=== PATIENT | female | born 1940 | race Caucasian/White ===

== ENCOUNTER 2019-09-18 06:55 | Outpatient (CLI) | payer MEDICARE, MEDICAID, SELFPAY ==
[2019-09-18 07:47] LABS: Hematocrit 34.5 % (37.0-47.0); Hemoglobin 10.4 g/dL (12.0-15.0); Mean Corpuscular HGB Conc 30.1 g/dl (32-36); Mean Corpuscular Hemoglobin 25.1 pg (26-34); Mean Corpuscular Volume 83.3 fl (80-100); Mean Platelet Volume 8.8 fl (7.4-10.4); Platelet Count Result 328 k/mm3 (150-375); Red Blood Count 4.14 M/mm3 (4.2-5.4); White Blood Count 10.7 K/mm3 (4.5-10.0)
[2019-09-18 08:00] LABS: Cholesterol 180 mg/dL (0-200); HDL Direct 36 mg/dL; Triglycerides 258 mg/dL (<150)
[2019-09-18 08:01] LABS: Anion Gap 13.5 mmol/L (7-16); Blood Urea Nitrogen 26 mg/dL (7-17); Calcium 8.9 mg/dL (8.4-10.2); Carbon Dioxide 23 mmol/L (22-30); Chloride 105 mmol/L (98-107); Estimated Glomerular Filt Rate 29; Glucose 106 mg/dL (65-105); Phosphorus 3.8 mg/dL (2.5-4.5); Potassium 4.5 mmol/L (3.4-5.0); Sodium 137 mmol/L (137-145)
[2019-09-18 08:11] LABS: LDL Cholesterol Direct 100 mg/dL
[2019-09-18 08:26] LABS: Creatinine Urine 30.4 mg/dL; Total Protein Urine Random 16 mg/dL
[2019-09-18 08:31] LABS: Parathyroid Intact 107.5 pg/mL (7.5-53.5)
[2019-09-18 08:43] LABS: Digoxin 0.8 ng/mL (0.8-2.0)
[2019-09-18 08:57] LABS: Free T4 Free Thyroxine 0.93 ng/mL (0.78-2.19)
[2019-09-18 08:58] LABS: Vitamin D 25 Hydroxy 54.3 ng/mL
[2019-09-18 09:09] LABS: Folic Acid 14.4 ng/mL (2.76->20); Vitamin B12 > 1000.0 pg/mL (239-931)
== END 2019-09-18 06:56 | disposition home or self-care (01) ==
PROVIDERS: Family Provider Internal Medicine Cardiovascular Disease; PCP Internal Medicine; Referring Provider Internal Medicine Nephrology; Visit Provider Internal Medicine
DX: E03.9 Hypothyroidism, unspecified (principal); E78.5 Hyperlipidemia, unspecified; R53.83 Other fatigue; I49.5 Sick sinus syndrome; N18.4 Chronic kidney disease, stage 4 (severe)
CPT/HCPCS: 36415; 80061; 80069; 80162; 82306; 82570; 82607; 82746; 83970; 84156; 84439; 84443; 85027

== ENCOUNTER 2020-05-20 07:25 | Outpatient (CLI) | payer MEDICARE, MEDICAID, SELFPAY ==
[2020-05-20 08:03] LABS: Basophils Absolute Auto 0.1 K/mm3 (0.0-0.1); Basophils Percent Auto 0.7 % (0.2-1.2); Eosinophils Absolute Auto 0.2 K/mm3 (0-0.3); Eosinophils Percent Auto 1.8 % (0-4.4); Hematocrit 33.9 % (37.0-47.0); Hemoglobin 10.2 g/dL (12.0-15.0); Immature Granulocyte Absolute 0.14 K/mm3 (0.00-0.031); Immature Granulocyte Percent A 1.6 % (0-0.5); Lymphocytes Absolute Auto 2.37 K/mm3 (0.9-3.2); Lymphocytes Percent Auto 26.9 % (18.3-44.2); Mean Corpuscular HGB Conc 30.1 g/dl (32-36); Mean Corpuscular Hemoglobin 25.3 pg (26-34); Mean Corpuscular Volume 84.1 fl (80-100); Monocytes Absolute Auto 0.9 K/mm3 (0.1-0.6); Monocytes Percent Auto 9.6 % (2.6-8.5); Neutrophils Absolute Auto 5.2 K/mm3 (1.3-6.7); Neutrophils Percent Auto 59.4 % (45.5-73.1); Platelet Count Result 285 k/mm3 (150-375); Red Blood Count 4.03 M/mm3 (4.2-5.4); Red Cell Distribution Width 15.6 % (11.5-14.5); White Blood Count 8.8 K/mm3 (4.5-10.0)
[2020-05-20 08:08] LABS: Creatinine Urine 40.6 mg/dL; Total Protein Urine Random 20 mg/dL; Ur Ttl Prot Creatinine Ratio 0.49 mg/mg (0-0.20)
[2020-05-20 08:14] LABS: Cholesterol 175 mg/dL (0-200); HDL Direct 39 mg/dL; Triglycerides 229 mg/dL (<150)
[2020-05-20 08:17] LABS: Albumin Level 3.9 g/dL (3.5-5.1); Anion Gap 7 mmol/L (8-16); Blood Urea Nitrogen 23 mg/dL (7-17); Calcium 8.7 mg/dL (8.4-10.2); Carbon Dioxide 26 mmol/L (22-30); Chloride 107 mmol/L (98-107); Estimated Glomerular Filt Rate 29; Glucose 100 mg/dL (65-105); Phosphorus 3.9 mg/dL (2.5-4.5); Potassium 5.1 mmol/L (3.4-5.0); Sodium 140 mmol/L (137-145)
[2020-05-20 08:25] LABS: LDL Cholesterol Direct 93 mg/dL
[2020-05-20 08:27] LABS: Parathyroid Intact 110.1 pg/mL (7.5-53.5)
[2020-05-20 08:50] LABS: Digoxin 0.7 ng/mL (0.8-2.0)
[2020-05-20 09:06] LABS: Free T4 Free Thyroxine 0.95 ng/mL (0.78-2.19)
== END 2020-05-20 07:26 | disposition home or self-care (01) ==
PROVIDERS: PCP Internal Medicine; Referring Provider Internal Medicine Nephrology; Visit Provider Internal Medicine
DX: D64.9 Anemia, unspecified (principal); N18.4 Chronic kidney disease, stage 4 (severe); I47.1 Supraventricular tachycardia; E03.9 Hypothyroidism, unspecified; E78.5 Hyperlipidemia, unspecified
CPT/HCPCS: 36415; 80061; 80069; 80162; 82570; 83970; 84156; 84439; 84443; 85025

== ENCOUNTER 2020-09-17 06:43 | Outpatient (CLI) | payer MEDICARE, MEDICAID, SELFPAY ==
[2020-09-17 07:25] LABS: Hematocrit 32.2 % (37.0-47.0); Hemoglobin 9.5 g/dL (12.0-15.0); Mean Corpuscular HGB Conc 29.5 g/dl (32-36); Mean Corpuscular Hemoglobin 24.9 pg (26-34); Mean Corpuscular Volume 84.5 fl (80-100); Mean Platelet Volume 8.7 fl (7.4-10.4); Platelet Count Result 279 k/mm3 (150-375); Red Blood Count 3.81 M/mm3 (4.2-5.4); Red Cell Distribution Width 15.1 % (11.5-14.5); White Blood Count 9.5 K/mm3 (4.5-10.0)
[2020-09-17 07:42] LABS: Albumin Level 3.7 g/dL (3.5-5.1); Blood Urea Nitrogen 27 mg/dL (7-17); Calcium 8.8 mg/dL (8.4-10.2); Carbon Dioxide 21 mmol/L (22-30); Estimated Glomerular Filt Rate 27; Glucose 94 mg/dL (65-110); Sodium 134 mmol/L (137-145)
[2020-09-17 07:58] LABS: Creatinine Urine 29.6 mg/dL; Total Protein Urine Random 18 mg/dL; Ur Ttl Prot Creatinine Ratio 0.61 mg/mg (0-0.20)
[2020-09-17 07:59] LABS: Anion Gap 11 mmol/L (8-16); Chloride 102 mmol/L (98-107)
== END 2020-09-17 06:44 | disposition home or self-care (01) ==
PROVIDERS: PCP Internal Medicine; Referring Provider Internal Medicine Cardiovascular Disease; Visit Provider Internal Medicine Nephrology
DX: N18.4 Chronic kidney disease, stage 4 (severe) (principal)
CPT/HCPCS: 36415; 80069; 82570; 83970; 84156; 85027

== ENCOUNTER 2021-01-20 09:55 | Outpatient (CLI) | payer MEDICARE, MEDICAID, SELFPAY ==
[2021-01-20 10:46] LABS: Hematocrit 32.1 % (37.0-47.0); Hemoglobin 9.6 g/dL (12.0-15.0); Mean Corpuscular HGB Conc 29.9 g/dl (32-36); Mean Corpuscular Hemoglobin 24.6 pg (26-34); Mean Corpuscular Volume 82.1 fl (80-100); Mean Platelet Volume 8.9 fl (7.4-10.4); Platelet Count Result 260 k/mm3 (150-375); Red Blood Count 3.91 M/mm3 (4.2-5.4); Red Cell Distribution Width 15.7 % (11.5-14.5); White Blood Count 6.8 K/mm3 (4.5-10.0)
[2021-01-20 11:03] LABS: Iron 60 ug/dL (37-170)
[2021-01-20 11:06] LABS: Albumin Level 3.9 g/dL (3.5-5.1); Anion Gap 13 mmol/L (8-16); Blood Urea Nitrogen 29 mg/dL (7-17); Calcium 9.2 mg/dL (8.4-10.2); Carbon Dioxide 21 mmol/L (22-30); Chloride 103 mmol/L (98-107); Estimated Glomerular Filt Rate 27; Glucose 102 mg/dL (65-110); Phosphorus 5.3 mg/dL (2.5-4.5); Sodium 137 mmol/L (137-145)
[2021-01-20 11:15] LABS: Percent Iron Saturation 15 % (20-50)
[2021-01-20 11:21] LABS: Parathyroid Intact 88.1 pg/mL (7.5-53.5)
[2021-01-20 11:29] LABS: Vitamin D 25 Hydroxy 45.9 ng/mL
[2021-01-20 12:07] LABS: Folic Acid 15.1 ng/mL (2.76->20); Vitamin B12 > 1000.0 pg/mL (239-931)
[2021-01-20 12:42] LABS: Creatinine Urine 38.8 mg/dL; Total Protein Urine Random 15 mg/dL; Ur Ttl Prot Creatinine Ratio 0.39 mg/mg (0-0.20)
== END 2021-01-20 09:56 | disposition home or self-care (01) ==
PROVIDERS: PCP Internal Medicine; Referring Provider Internal Medicine Cardiovascular Disease; Visit Provider Internal Medicine Nephrology
DX: N18.4 Chronic kidney disease, stage 4 (severe) (principal); D63.1 Anemia in chronic kidney disease; E21.1 Secondary hyperparathyroidism, not elsewhere classified
CPT/HCPCS: 36415; 80069; 82306; 82570; 82607; 82728; 82746; 83540; 83550; 83970; 84156; 85027

== ENCOUNTER 2021-06-02 07:57 | Outpatient (CLI) | payer MEDICARE, MEDICAID, SELFPAY ==
[2021-06-02 08:45] LABS: Hematocrit 35.7 % (37.0-47.0); Hemoglobin 10.8 g/dL (12.0-15.0); Mean Corpuscular HGB Conc 30.3 g/dl (32-36); Mean Corpuscular Hemoglobin 26.3 pg (26-34); Mean Corpuscular Volume 87.1 fl (80-100); Mean Platelet Volume 8.9 fl (7.4-10.4); Platelet Count Result 259 k/mm3 (150-375); Red Cell Distribution Width 17.3 % (11.5-14.5)
[2021-06-02 08:55] LABS: Albumin Level 3.9 g/dL (3.5-5.1); Anion Gap 9 mmol/L (8-16); Blood Urea Nitrogen 26 mg/dL (7-17); Calcium 8.7 mg/dL (8.4-10.2); Carbon Dioxide 22 mmol/L (22-30); Chloride 107 mmol/L (98-107); Estimated Glomerular Filt Rate 27; Glucose 90 mg/dL (65-110); Phosphorus 4.8 mg/dL (2.5-4.5); Potassium 4.1 mmol/L (3.4-5.0); Sodium 138 mmol/L (137-145)
[2021-06-02 09:07] LABS: Parathyroid Intact 88.7 pg/mL (7.5-53.5)
[2021-06-02 09:27] LABS: Iron 65 ug/dL (37-170)
[2021-06-02 09:37] LABS: Percent Iron Saturation 17 % (20-50)
[2021-06-02 09:49] LABS: Creatinine Urine 63.8 mg/dL; Total Protein Urine Random 17 mg/dL; Ur Ttl Prot Creatinine Ratio 0.27 mg/mg (0-0.20)
[2021-06-02 10:13] LABS: Vitamin B12 > 1000.0 pg/mL (239-931)
== END 2021-06-02 07:58 | disposition home or self-care (01) ==
PROVIDERS: PCP Internal Medicine; Referring Provider Internal Medicine Nephrology; Visit Provider Internal Medicine
DX: N18.4 Chronic kidney disease, stage 4 (severe) (principal); D64.9 Anemia, unspecified; E03.9 Hypothyroidism, unspecified; R53.83 Other fatigue
CPT/HCPCS: 36415; 80069; 82306; 82570; 82607; 82746; 83540; 83550; 83970; 84156; 84439; 84443; 85027

== ENCOUNTER 2021-10-06 07:55 | Outpatient (CLI) | payer MEDICARE, MEDICAID, SELFPAY ==
[2021-10-06 08:32] LABS: Hematocrit 38.9 % (37.0-47.0); Hemoglobin 12.4 g/dL (12.0-15.0); Mean Corpuscular HGB Conc 31.9 g/dl (32-36); Mean Corpuscular Hemoglobin 29.2 pg (26-34); Mean Corpuscular Volume 91.7 fl (80-100); Mean Platelet Volume 8.7 fl (7.4-10.4); Platelet Count Result 239 k/mm3 (150-375); Red Blood Count 4.24 M/mm3 (4.2-5.4); Red Cell Distribution Width 14.5 % (11.5-14.5); White Blood Count 6.9 K/mm3 (4.5-10.0)
[2021-10-06 08:49] LABS: Albumin Level 4.1 g/dL (3.5-5.1); Anion Gap 11 mmol/L (8-16); Blood Urea Nitrogen 31 mg/dL (7-17); Calcium 8.6 mg/dL (8.4-10.2); Carbon Dioxide 22 mmol/L (22-30); Chloride 105 mmol/L (98-107); Estimated Glomerular Filt Rate 31; Glucose 100 mg/dL (65-110); Phosphorus 4.7 mg/dL (2.5-4.5); Potassium 4.6 mmol/L (3.4-5.0); Sodium 138 mmol/L (137-145)
[2021-10-06 08:56] LABS: Parathyroid Intact 105.5 pg/mL (7.5-53.5)
[2021-10-06 09:34] LABS: Hepatitis B Surface Anti Res Negative
[2021-10-06 10:00] LABS: Creatinine Urine 35.2 mg/dL; Total Protein Urine Random 18 mg/dL; Ur Ttl Prot Creatinine Ratio 0.51 mg/mg (0-0.20)
== END 2021-10-06 07:56 | disposition home or self-care (01) ==
PROVIDERS: PCP Internal Medicine; Referring Provider Internal Medicine Cardiovascular Disease; Visit Provider Internal Medicine Nephrology
DX: N18.4 Chronic kidney disease, stage 4 (severe) (principal)
CPT/HCPCS: 36415; 80069; 82570; 83970; 84156; 85027; 86706

== ENCOUNTER 2022-02-15 07:27 | Outpatient (CLI) | payer MEDICARE, MEDICAID, SELFPAY ==
[2022-02-15 08:30] LABS: Alanine Aminotransferase 21 U/L (6-35); Alkaline Phosphatase 120 U/L (38-126); Anion Gap 8 mmol/L (8-16); Aspartate Amino Transferase 33 U/L (14-36); Bilirubin,Total 0.6 mg/dL (0.2-1.3); Blood Urea Nitrogen 25 mg/dL (7-17); Calcium 8.9 mg/dL (8.4-10.2); Carbon Dioxide 24 mmol/L (22-30); Chloride 109 mmol/L (98-107); Cholesterol 198 mg/dL (0-200); Estimated Glomerular Filt Rate 26; Glucose 96 mg/dL (65-110); HDL Direct 53 mg/dL; Potassium 4.7 mmol/L (3.4-5.0); Sodium 141 mmol/L (137-145); Triglycerides 143 mg/dL (<150)
[2022-02-15 08:45] LABS: LDL Cholesterol Direct 86 mg/dL
[2022-02-15 08:46] LABS: Albumin Level 4.1 g/dL (3.5-5.1); Anion Gap 8 mmol/L (8-16); Blood Urea Nitrogen 25 mg/dL (7-17); Calcium 8.9 mg/dL (8.4-10.2); Carbon Dioxide 23 mmol/L (22-30); Chloride 110 mmol/L (98-107); Estimated Glomerular Filt Rate 27; Glucose 96 mg/dL (65-110); Phosphorus 4.1 mg/dL (2.5-4.5); Potassium 4.8 mmol/L (3.4-5.0); Sodium 141 mmol/L (137-145)
[2022-02-15 09:22] LABS: Iron 80 ug/dL (37-170)
[2022-02-15 09:32] LABS: Folic Acid 16.5 ng/mL (2.76->20); Percent Iron Saturation 28 % (20-50)
[2022-02-15 10:00] LABS: Creatinine Urine 46.3 mg/dL; Total Protein Urine Random 25 mg/dL; Ur Ttl Prot Creatinine Ratio 0.54 mg/mg (0-0.20)
[2022-02-15 10:40] LABS: Basophils Absolute Auto 0.1 K/mm3 (0.0-0.1); Basophils Percent Auto 0.8 % (0.2-1.2); Eosinophils Absolute Auto 0.3 K/mm3 (0-0.3); Eosinophils Percent Auto 3.5 % (0-4.4); Hematocrit 38.9 % (37.0-47.0); Hemoglobin 12.1 g/dL (12.0-15.0); Immature Granulocyte Absolute 0.06 K/mm3 (0.00-0.031); Immature Granulocyte Percent A 0.8 % (0-0.5); Lymphocytes Absolute Auto 2.31 K/mm3 (0.9-3.2); Lymphocytes Percent Auto 32.7 % (18.3-44.2); Mean Corpuscular HGB Conc 31.1 g/dl (32-36); Mean Corpuscular Hemoglobin 29.2 pg (26-34); Mean Corpuscular Volume 93.7 fl (80-100); Monocytes Absolute Auto 0.7 K/mm3 (0.1-0.6); Monocytes Percent Auto 9.6 % (2.6-8.5); Neutrophils Absolute Auto 3.7 K/mm3 (1.3-6.7); Neutrophils Percent Auto 52.6 % (45.5-73.1); Platelet Count Result 257 k/mm3 (150-375); Red Blood Count 4.15 M/mm3 (4.2-5.4); White Blood Count 7.1 K/mm3 (4.5-10.0)
[2022-02-15 11:28] LABS: Vitamin D 25 Hydroxy 40.7 ng/mL
== END 2022-02-15 07:28 | disposition home or self-care (01) ==
PROVIDERS: PCP Internal Medicine; Referring Provider Internal Medicine Cardiovascular Disease; Visit Provider Internal Medicine Nephrology
DX: R74.8 Abnormal levels of other serum enzymes (principal); R73.9 Hyperglycemia, unspecified; E04.1 Nontoxic single thyroid nodule; E03.9 Hypothyroidism, unspecified; D64.9 Anemia, unspecified; N18.4 Chronic kidney disease, stage 4 (severe); E66.9 Obesity, unspecified
CPT/HCPCS: 36415; 80053; 80061; 80069; 82306; 82570; 82607; 82746; 83540; 83550; 83970; 84156; 84439; 84443; 85025

== ENCOUNTER 2022-05-19 12:41 | Outpatient (CLI) | payer MEDICARE, MEDICAID, SELFPAY ==
[2022-05-19 13:05] LABS: Hematocrit 38.5 % (37.0-47.0); Mean Corpuscular HGB Conc 31.2 g/dl (32-36); Mean Corpuscular Hemoglobin 29.4 pg (26-34); Mean Corpuscular Volume 94.4 fl (80-100); Mean Platelet Volume 8.7 fl (7.4-10.4); Platelet Count Result 248 k/mm3 (150-375); Red Blood Count 4.08 M/mm3 (4.2-5.4); Red Cell Distribution Width 13.8 % (11.5-14.5); White Blood Count 7.6 K/mm3 (4.5-10.0)
[2022-05-19 13:09] LABS: Total Protein Urine Random 24 mg/dL; Ur Ttl Prot Creatinine Ratio 0.31 mg/mg (0-0.20)
[2022-05-19 13:21] LABS: Albumin Level 4.2 g/dL (3.5-5.1); Anion Gap 11 mmol/L (8-16); Blood Urea Nitrogen 23 mg/dL (7-17); Carbon Dioxide 19 mmol/L (22-30); Chloride 109 mmol/L (98-107); Estimated Glomerular Filt Rate 27; Glucose 90 mg/dL (65-110); Phosphorus 4.5 mg/dL (2.5-4.5); Potassium 4.9 mmol/L (3.4-5.0); Sodium 139 mmol/L (137-145)
[2022-05-19 13:32] LABS: Parathyroid Intact 139.6 pg/mL (7.5-53.5)
[2022-05-19 13:44] LABS: Vitamin D 25 Hydroxy 48.9 ng/mL
== END 2022-05-19 12:42 | disposition home or self-care (01) ==
PROVIDERS: PCP Internal Medicine; Visit Provider Internal Medicine Nephrology
DX: E04.1 Nontoxic single thyroid nodule (principal); E21.1 Secondary hyperparathyroidism, not elsewhere classified; N18.32 Chronic kidney disease, stage 3b
CPT/HCPCS: 36415; 80069; 82306; 82570; 83970; 84156; 85027

== ENCOUNTER 2022-08-22 12:29 | Outpatient (CLI) | payer MEDICARE, OTHER, SELFPAY ==
[2022-08-24 08:02] LABS: Amphetamines NEGATIVE ng/mL (<500); Barbiturates NEGATIVE ng/mL (<300); Benzodiazepines NEGATIVE ng/mL (<100); Cocaine Metabolite NEGATIVE ng/mL (<150); Marijuana Metabolite NEGATIVE ng/mL (<20); Methadone Metabolite NEGATIVE ng/mL (<100); Opiates NEGATIVE ng/mL (<100); Oxidant NEGATIVE mcg/mL (<200); pH 5.6 (4.5-9.0)
== END 2022-08-22 12:30 | disposition home or self-care (01) ==
LOC: ANHLAB 12:33
PROVIDERS: PCP Internal Medicine; Visit Provider Anesthesiology Pain Medicine
DX: M54.9 Dorsalgia, unspecified (principal); Z79.899 Other long term (current) drug therapy
CPT/HCPCS: 80307

== ENCOUNTER 2022-10-04 12:44 | Outpatient (CLI) | payer MEDICARE, MEDICAID, SELFPAY ==
[2022-10-04 13:27] LABS: Creatinine Urine 85.6 mg/dL; Total Protein Urine Random 15 mg/dL; Ur Ttl Prot Creatinine Ratio 0.18 mg/mg (0-0.20)
[2022-10-04 13:42] LABS: Hematocrit 38.9 % (37.0-47.0); Hemoglobin 12.1 g/dL (12.0-15.0); Mean Corpuscular HGB Conc 31.1 g/dl (32-36); Mean Corpuscular Hemoglobin 29.5 pg (26-34); Mean Corpuscular Volume 94.9 fl (80-100); Mean Platelet Volume 8.9 fl (7.4-10.4); Platelet Count Result 266 k/mm3 (150-375); Red Cell Distribution Width 13.7 % (11.5-14.5); White Blood Count 8.2 K/mm3 (4.5-10.0)
[2022-10-04 13:45] LABS: Albumin Level 4.1 g/dL (3.5-5.1); Anion Gap 11 mmol/L (8-16); Blood Urea Nitrogen 33 mg/dL (7-17); Calcium 8.7 mg/dL (8.4-10.2); Carbon Dioxide 19 mmol/L (22-30); Chloride 107 mmol/L (98-107); Estimated Glomerular Filt Rate 23; Glucose 88 mg/dL (65-110); Phosphorus 4.8 mg/dL (2.5-4.5); Potassium 5.3 mmol/L (3.4-5.0); Sodium 137 mmol/L (137-145)
[2022-10-04 13:56] LABS: Parathyroid Intact 127.9 pg/mL (7.5-53.5)
== END 2022-10-04 12:45 | disposition home or self-care (01) ==
PROVIDERS: PCP Internal Medicine; Referring Provider Internal Medicine Cardiovascular Disease; Visit Provider Internal Medicine Nephrology
DX: E04.1 Nontoxic single thyroid nodule (principal); E21.1 Secondary hyperparathyroidism, not elsewhere classified; N18.32 Chronic kidney disease, stage 3b
CPT/HCPCS: 36415; 80069; 82570; 83970; 84156; 85027

== ENCOUNTER 2022-10-20 09:30 | Outpatient (RCR) | payer MEDICARE, MEDICAID, SELFPAY ==
--- NOTE | 2022-08-24 17:06 | PTOPEVAL1 ---
Assessment and note entered by Lissette Dennison, PT Evaluation Information Assessment Status Evaluation Diagnosis Pain in right knee, Pain in left shoulder, Dorsalgia Additional diagnosis abnormality of gait and mobility Subjective Information First time to see the chronic pain doctor, does not want to do shots in her joints. Has gone to therapy in the past both in [facility] in the past, more than 2-3 years ago. Pt reports back pain is the worst. Has pain all over has been dealing with the pain for years . Went on Disability in 1997 with degenerative disc disease. Broke riht ankle, left foot, left hand, left hip replacement Lower back, no imaging for this. Pain increases with ADLs requiring standing Pt reports right knee pain comes and goes no matter what is doing but seems worse with gettin up in the morning Left shoulder pain in the last month. Pt reports can aise her arm, and it comes and goes, especially with holding her table. Back is worst, knee is second, shoulder is thrid with pain. Pt has a helper T and Th to do laundry, cleaning house, goes to grocery store to shop, picks up items for patient. Lives in apartment Reported Pain Level Pain Score 0,0,0: Self Report Assessment PT Clinical Summary Pt presents w/ history of chronic low back pain with more recent right knee and left shoulder pain . She has multiple co-morbidities including left total hip replacement, and pacemaker placement. Evaluation demo's multiple areas of functional weakness with mobility including glute med and max especially, decreased balance, and abnormal gait. Pt also demo's alignment issues of foot/ankle complex leading to right knee alignment issues and thus likely back issues. Pt will benefit from therapy to address deficits, educate and empower patient to assist in improvement, and improve patient's functional abilities with less pa
--- NOTE | 2022-08-24 17:07 | OPREHPOC ---
Outpatient Therapy Plan of Care This is a Multidisciplinary Plan of Care that may contain components documented by all disciplines (PT, OT, and ST.) PT Problem 1 PT Problem #1 Knowledge Deficit PT Goal 1 Goal Pt will be independent in HEP Target Visit 24 PT Goal 2 Goal Pt will verbalize understanding of diagnosis and prognosis Target Visit 12 PT Problem 2 PT Problem #2 Impaired Functional Mobil PT Goal 1 Goal Pt will report less pain in all body parts Target Visit 12 PT Goal 2 Goal Pt will report worst pain levels of each body part reduced by 50% or less Target Visit 24 PT Problem 3 PT Problem #3 Impaired Balance PT Goal 1 Goal Pt will demo ability to perform 5 time sit to stand test with or witout UEs in 30 seconds Target Visit 12 PT Goal 2 Goal Pt will demo ability to perform 5 time sit to stand test without UEs in 20 seconds Target Visit 24 PT Problem 4 PT Problem #4 Impaired Gait PT Goal 1 Goal Pt will demo 2 min walk with LRAD 150 ft or greater Target Visit 24 PT Goal 2 Goal Pt will demo erect stance with gait pattern for 150 ft with LRAD Target Visit 24
--- NOTE | 2022-09-22 15:07 | PTOPPROG ---
Assessment and note entered by Lissette Dennison, PT Assessment Status Progress Report Diagnosis Pain in right knee, Pain in left shoulder, Dorsalgia Subjective Information Pt reports son has cancer in the brain. Son had surgery this week to see what kind of cancer. Pt reports pain has been doing pretty good overall. still walking that klils me . Start walking is fine but after a time then forget it. Left shoulder: sleeping on it is stil bed but is pretty good . Sometimes with tablet still has pain and has to move around but then pain will go away . I'm not giving up my tablet neither . Dorsalgia: walking is what kills me . Exercises has helped my back . Can now walk further before the pain kicks in . Right knee: comes and goes, is not a constant pain . Pain comes less often ADLs: sometimes will take a tylenol for shower but otherwise back kills me . Uses built in shower chair some during shower. Is up and down with this routine. Use of body pillow takes getting used to but when uses it, does help the pain. Assessment PT Clinical Summary Pt has attended therapy consistently for her left shoulder, right knee, and back pain. While she does not give a percentage of improvement today, her pain scores for worst rating of right knee pain have reduced rom 5/10 to 3/10 and her highest pain scores for her back have reduced from 8/10 to 6/10. She does report she can walk longer before having back pain, is sleeping with less pain, has pain less often in her right knee, demo' s increased gait distance with 2 minute walk testing, improved quality of gait, and also improved 5x sit to stand scoring. Pt have met some of her goals but not all therapy related goals and continues to have pain. Thus pt would benefit from continued therapy to continue progress and improve functional independence with less pain. Plan of Care Interventions Gait Training,Hot Pack/Cold Pack,Manual Therapy, Neuro Re-education,Therapeutic Activities,
--- NOTE | 2022-10-20 12:53 | PTOPDC ---
Assessment and note entered by Lissette Dennison, PT Assessment Status Discharge Diagnosis Pain in right knee, Pain in left shoulder, Dorsalgia Subjective Information Pt states feels knee and shoulder are not hurting as bad. Has learned how to hold her arm when using her tablet to improve her shoulder pain. Walking is still bad terrible . Is more because of breathing than her back. Usually can do shower with no pain, and when does have pain in the shower is less than it used to be . Pt takes her Tylenol as needed or to prepare for incresaed activity. Took it this morning and may have taken it yesterday. Pt states had to do a lot of walking yesterday then went shopping at [employer]. Assessment PT Clinical Summary Pt has attended therapy consistenty for her back, right knee, and left shoulder pain. She hasmet all her therapy related goals with only exception being her 5x sit to stand score. Her highest level of pain reported recently is a 4/10 in her back with increased walking, with increased times of 0/ 10 pain in all body parts. She reports she is able to shower without or with very minimal back pain now, is limited in her walking more by her breathing than her back pain, has been consistent with her exercises, and is only taking Tylenol as needed (per her preference). Pt also verbalizes understanding of therapy tune ups as needed with her chronic pain. Thus patient is being discharged from therapy due to meeting her goals.
== END 2022-10-20 13:02 | disposition home or self-care (01) ==
LOC: ANHHIPT 09:30
PROVIDERS: PCP Internal Medicine; Visit Provider Anesthesiology Pain Medicine
DX: M25.561 Pain in right knee (principal); M25.512 Pain in left shoulder; M54.9 Dorsalgia, unspecified
CPT/HCPCS: 97110; 97112; 97116; 97140; 97163; 97530; 97750

== ENCOUNTER 2023-02-01 11:05 | Outpatient (CLI) | payer MEDICARE, MEDICAID, SELFPAY ==
[2023-02-01 11:31] LABS: Hematocrit 38.6 % (37.0-47.0); Hemoglobin 11.7 g/dL (12.0-15.0); Mean Corpuscular HGB Conc 30.3 g/dl (32-36); Mean Corpuscular Hemoglobin 28.7 pg (26-34); Mean Corpuscular Volume 94.6 fl (80-100); Mean Platelet Volume 8.8 fl (7.4-10.4); Platelet Count Result 255 k/mm3 (150-375); Red Blood Count 4.08 M/mm3 (4.2-5.4); Red Cell Distribution Width 13.2 % (11.5-14.5); White Blood Count 7.7 K/mm3 (4.5-10.0)
[2023-02-01 11:43] LABS: Potassium 4.8 mmol/L (3.4-5.0)
[2023-02-01 11:45] LABS: Creatinine Urine 61.4 mg/dL; Total Protein Urine Random 24 mg/dL; Ur Ttl Prot Creatinine Ratio 0.39 mg/mg (0-0.20)
[2023-02-01 11:45] LABS: Albumin Level 4.1 g/dL (3.5-5.1); Anion Gap 9 mmol/L (8-16); Blood Urea Nitrogen 24 mg/dL (7-17); Calcium 8.9 mg/dL (8.4-10.2); Carbon Dioxide 23 mmol/L (22-30); Chloride 106 mmol/L (98-107); Estimated Glomerular Filt Rate 25; Glucose 109 mg/dL (65-110); Phosphorus 4.4 mg/dL (2.5-4.5); Sodium 138 mmol/L (137-145)
== END 2023-02-01 11:06 | disposition home or self-care (01) ==
PROVIDERS: PCP Internal Medicine; Visit Provider Internal Medicine Nephrology
DX: E04.1 Nontoxic single thyroid nodule (principal); E21.1 Secondary hyperparathyroidism, not elsewhere classified; N18.32 Chronic kidney disease, stage 3b
CPT/HCPCS: 36415; 80069; 82306; 82570; 83970; 84156; 85027

== ENCOUNTER 2023-06-14 08:38 | Outpatient (CLI) | payer MEDICARE, MEDICAID, SELFPAY ==
[2023-06-14 09:10] LABS: Hematocrit 38.6 % (37.0-47.0); Mean Corpuscular HGB Conc 31.1 g/dl (32-36); Mean Corpuscular Volume 93.2 fl (80-100); Mean Platelet Volume 9.2 fl (7.4-10.4); Platelet Count Result 247 k/mm3 (150-375); Red Blood Count 4.14 M/mm3 (4.2-5.4); Red Cell Distribution Width 13.2 % (11.5-14.5); White Blood Count 6.5 K/mm3 (4.5-10.0)
[2023-06-14 09:23] LABS: Albumin Level 4.3 g/dL (3.5-5.1); Anion Gap 9 mmol/L (4-12); Blood Urea Nitrogen 30 mg/dL (7-17); Calcium 9.6 mg/dL (8.4-10.2); Carbon Dioxide 21 mmol/L (22-30); Chloride 110 mmol/L (98-107); Estimated Glomerular Filt Rate 21; Glucose 101 mg/dL (65-110); Phosphorus 5.4 mg/dL (2.5-4.5); Potassium 5.3 mmol/L (3.4-5.0); Sodium 140 mmol/L (137-145)
[2023-06-14 09:33] LABS: Parathyroid Intact 114.1 pg/mL (7.5-53.5)
[2023-06-14 11:08] LABS: Creatinine Urine 58.5 mg/dL; Total Protein Urine Random 16 mg/dL; Ur Ttl Prot Creatinine Ratio 0.27 mg/mg (0-0.20)
== END 2023-06-14 08:39 | disposition home or self-care (01) ==
LOC: ANHLAB 08:44
PROVIDERS: PCP Internal Medicine; Referring Provider Internal Medicine; Visit Provider Internal Medicine Nephrology
DX: E04.1 Nontoxic single thyroid nodule (principal); E21.1 Secondary hyperparathyroidism, not elsewhere classified; N18.32 Chronic kidney disease, stage 3b; E03.9 Hypothyroidism, unspecified
CPT/HCPCS: 36415; 80069; 82570; 83970; 84156; 84443; 85027

== ENCOUNTER 2023-10-04 10:14 | Outpatient (CLI) | payer MEDICARE, MEDICAID, SELFPAY ==
[2023-10-04 11:00] LABS: Hemoglobin 11.8 g/dL (12.0-15.0); Mean Corpuscular HGB Conc 31.1 g/dl (32-36); Mean Corpuscular Hemoglobin 29.3 pg (26-34); Mean Corpuscular Volume 94.3 fl (80-100); Mean Platelet Volume 9.2 fl (7.4-10.4); Platelet Count Result 251 k/mm3 (150-375); Red Blood Count 4.03 M/mm3 (4.2-5.4); Red Cell Distribution Width 13.4 % (11.5-14.5); White Blood Count 7.9 K/mm3 (4.5-10.0)
[2023-10-04 11:06] LABS: Albumin Level 4.1 g/dL (3.5-5.1); Anion Gap 13 mmol/L (4-12); Blood Urea Nitrogen 25 mg/dL (7-17); Calcium 8.9 mg/dL (8.4-10.2); Carbon Dioxide 21 mmol/L (22-30); Chloride 105 mmol/L (98-107); Estimated Glomerular Filt Rate 24; Glucose 79 mg/dL (65-110); Phosphorus 4.7 mg/dL (2.5-4.5); Potassium 4.5 mmol/L (3.4-5.0); Sodium 139 mmol/L (137-145)
[2023-10-04 11:10] LABS: Cholesterol 198 mg/dL (0-200); HDL Direct 50 mg/dL; Triglycerides 166 mg/dL (<150)
[2023-10-04 11:19] LABS: Parathyroid Intact 102.2 pg/mL (14.5-75.2)
[2023-10-04 11:21] LABS: LDL Cholesterol Direct 97 mg/dL
[2023-10-04 11:44] LABS: Creatinine Urine 35.4 mg/dL; Total Protein Urine Random 20 mg/dL; Ur Ttl Prot Creatinine Ratio 0.56 mg/mg (0-0.20)
[2023-10-04 11:59] LABS: Vitamin D 25 Hydroxy 44.5 ng/mL
== END 2023-10-04 10:15 | disposition home or self-care (01) ==
PROVIDERS: PCP Internal Medicine; Visit Provider Internal Medicine Nephrology
DX: E03.9 Hypothyroidism, unspecified (principal); E66.9 Obesity, unspecified; Z13.220 Encounter for screening for lipoid disorders; R73.9 Hyperglycemia, unspecified; E21.1 Secondary hyperparathyroidism, not elsewhere classified; N18.32 Chronic kidney disease, stage 3b
CPT/HCPCS: 36415; 80061; 80069; 82306; 82570; 83036; 83970; 84156; 84443; 85027

== ENCOUNTER 2023-11-21 16:01 | Inpatient (IN) | payer MEDICARE, MEDICAID, SELFPAY ==
[2023-11-21] VITALS (12 sets, daily range): BP systolic 142–174; BP diastolic 71–111; PULSE 74–96; RESP 16–24; TEMP 36.6; O2SAT 93–100; BMI 36.3
--- NOTE | ~2023-11-21 | CT_ITS ---
CTA chest PE protocol Ordering provider: Soraida Fuller MD History: 83 years Female with . SOB, CP, elevated dimer . Comparison: None. Technique: CT angiogram chest was performed following timed intravenous injection of contrast. Thin s lice axial images and reformatted coronal images were obtained. Three dimensional reformatted images of the chest were also obtained using a [employer] workstation. . Automated exposure control and iterati ve reconstruction technique were employed. The dose-length product was 543.72 mGy-cm. 100 mL Omnipaqu e 350 was given IV. Findings: PULMONARY ARTERIES: No pulmonary embolus in the main vessels. Possible filling defects in the left lo wer lobe branches is not excluded. VISUALIZED THORACIC INLET: Normal. Left bipolar pacemaker. MEDIASTINUM: Aorta/coronary arteries: Mild atheromatous disease. Heart/other: The heart is not enlarged. Lymph nodes: No mediastinal or hilar adenopathy. LUNGS: No pulmonary nodules or masses. No infiltrates or effusions. No pneumothorax. VISUALIZED UPPER ABDOMEN: Sliding hiatus hernia. Postoperative changes in the stomach. Bilateral kidn ey cysts. Fat infiltration of the liver. Otherwise, the visualized upper abdomen is normal. MUSCULOSKELETAL: Soft tissues: The superficial soft tissues are normal. Bones: Age appropriate degenerative changes of the spine. IMPRESSION: 1. Filling defects are seen in the left subsegmental branches suggestive of pulmonary embolism. No f illing defects in the main pulmonary arteries. 2. No acute cardiopulmonary pathology. 3. Sliding hiatus hernia. Reviewed, dictated and finalized at location A. IMPRESSION: 1. Filling defects are seen in the left subsegmental branches suggestive of pu lmonary embolism. No filling defects in the main pulmonary arteries. 2. No acute cardiopulmonary pathology. 3. Sliding hiatus hernia.
--- NOTE | ~2023-11-21 | CT_ITS ---
EXAMINATION: CT abdomen pelvis wo con DATE: 11/21/2023 18:14 INDICATION: Upper abdominal pain. Nausea and vomiting. TECHNIQUE: Computed tomography (CT) of the abdomen and pelvis was performed without intravenous contr ast. Automated exposure control and iterative reconstruction technique were employed. The dose-length product was 971.79 mGy-cm. COMPARISON: CT abdomen and pelvis 05/23/2016 FINDINGS: The visualized portions of lung bases demonstrate mild atelectasis. No pleural effusion. Th e heart size is normal. There is a trace pericardial effusion. There are pacer wires in right atrium and right ventricle. There are changes of gastric bypass procedure. There is a small sliding hiatal h ernia. The liver and spleen are normal. There are changes of cholecystectomy. The pancreas and adrena l glands are normal. There is mild atrophy of the kidneys. There are cysts in the kidneys measuring u p to 12 mm on the left. There is no urolithiasis. There is diverticulosis of the colon without eviden ce of diverticulitis. There are no dilated loops of bowel. The appendix is not visualized. There are no pathologically enlarged lymph nodes. There is no free intraperitoneal fluid. There is a total left hip arthroplasty. There is severe thoracic and lumbar spondylosis IMPRESSION: 1. Small sliding hiatal hernia. Gastric bypass procedure. Reviewed, dictated and finalized at location A.
--- NOTE | ~2023-11-21 | XR_ITS ---
EXAMINATION: XR chest 2V DATE: 11/21/2023 16:27 INDICATION: Chest pain and shortness of breath. TECHNIQUE: Frontal and lateral views of the chest were obtained. COMPARISON: Chest 2 views 04/06/16 FINDINGS: There is no pneumonia, pleural effusion, or pneumothorax. The heart size is normal. There i s a left chest wall pacer with leads in the right atrium and right ventricle. There are surgical clip s in the abdomen. IMPRESSION: 1. No acute cardiopulmonary disease. Reviewed, dictated and finalized at location A.
--- NOTE | ~2023-11-21 | US_ITS ---
EXAMINATION: US venous doppler [facility] DATE: 11/22/2023 17:33 INDICATION: 01/09/2008 TECHNIQUE: Grayscale ultrasound images without and with compression and Doppler ultrasound images of the bilateral lower extremity veins were obtained. COMPARISON: None. FINDINGS: The visualized portions of right common femoral vein, profunda (deep) femoral vein, femoral vein, pop liteal vein, peroneal veins, posterior tibial veins, and greater saphenous vein outflow are patent. The visualized portions of left common femoral vein, profunda femoral vein, femoral vein, popliteal v ein, peroneal veins, posterior tibial veins, and greater saphenous vein outflow are patent. IMPRESSION: 1. No deep venous thrombosis. Reviewed, dictated and finalized at location A.
--- NOTE | 2023-11-21 16:05 | ECG_ITS ---
Test Date: 2023-11-21 16:12:01 Measurements Intervals [place] Rate: 86 P: 0 HI: 0 QRS: -30 QRSD: 84 T: 14 QT: 340 QTc: 407 Interpretive Statements SINUS RHYTHM WITH PACS PREVIOUS ANTERIOR INFARCTION MINOR ST SEGMENT ABNORMALITY ABNORMAL ECG No previous ECG available for comparison Electronically Signed On 11-22-2023 07:14:22 CDT by Prem Shields M.D.
[2023-11-21 16:26] LABS: Basophils Percent Auto 0.3 % (0.2-1.2); Eosinophils Absolute Auto 0.1 K/mm3 (0-0.3); Hematocrit 39.1 % (37.0-47.0); Hemoglobin 12.7 g/dL (12.0-15.0); Immature Granulocyte Absolute 0.04 K/mm3 (0.00-0.031); Immature Granulocyte Percent A 0.5 % (0-0.5); Lymphocytes Absolute Auto 2.35 K/mm3 (0.9-3.2); Lymphocytes Percent Auto 26.8 % (18.3-44.2); Mean Corpuscular HGB Conc 32.5 g/dl (32-36); Mean Corpuscular Hemoglobin 29.8 pg (26-34); Mean Corpuscular Volume 91.8 fl (80-100); Mean Platelet Volume 8.8 fl (7.4-10.4); Monocytes Absolute Auto 0.8 K/mm3 (0.1-0.6); Monocytes Percent Auto 8.6 % (2.6-8.5); Neutrophils Absolute Auto 5.5 K/mm3 (1.3-6.7); Neutrophils Percent Auto 62.8 % (45.5-73.1); Platelet Count Result 267 k/mm3 (150-375); Red Blood Count 4.26 M/mm3 (4.2-5.4); Red Cell Distribution Width 13.3 % (11.5-14.5); White Blood Count 8.8 K/mm3 (4.5-10.0)
[2023-11-21 16:36] LABS: Prothrombin Time 13.2 Seconds (11.1-14.7)
[2023-11-21 16:37] LABS: Partial Thromboplastin Time 31.3 Seconds (22.3-36.8)
[2023-11-21 16:59] LABS: Alanine Aminotransferase 22 U/L (6-35); Albumin Level 4.4 g/dL (3.5-5.1); Alkaline Phosphatase 168 U/L (38-126); Aspartate Amino Transferase 36 U/L (14-36); Bilirubin,Total 0.7 mg/dL (0.2-1.3); Blood Urea Nitrogen 29 mg/dL (7-17); Calcium 9.2 mg/dL (8.4-10.2); Carbon Dioxide 21 mmol/L (22-30); Estimated Glomerular Filt Rate 21; Glucose 101 mg/dL (65-110); Lipase 289 U/L (23-300)
[2023-11-21 17:17] LABS: Anion Gap 10 mmol/L (4-12); Chloride 105 mmol/L (98-107); Potassium 4.6 mmol/L (3.4-5.0); Sodium 136 mmol/L (137-145)
[2023-11-21 17:25] LABS: Troponin I < 0.012 ng/mL (0.000-0.034)
--- NOTE | 2023-11-21 17:44 | ED.CHESTPAIN ---
HPI - Chest Pain General Chief Complaint: Chest Pain <CASSIDY Packer Last Filed: 11/21/23 17:58> Stated Complaint: cp radiating down L arm, neck pain <CASSIDY Packer Last Filed: 11/21/23 17:58> Time Seen by Provider: 11/21/23 17:44 <CASSIDY Packer Last Filed: 11/21/23 17:58> Focused HPI: Patient is an 83 y/o female, with PMH of complete heart block s/p pacemaker, CKD, esophageal stricture s/p dilation, who presents to the ED with multiple complaints. Patient states she overall does not feel well. C/o fatigue, generalized weakness. Reports having intermittent L sided chest pain, radiates into her L neck, L shoulder since . States pain is worse at night. No significant aggravating or alleviating factors to CP. Also reports mild cough, N/V, decreased appetite, pain throughout upper abdomen, dizziness, lightheadedness, shortness of breath. Also notes that her stool has been black. States it has been melanotic for at least 1 year since being on iron supplements. Denies BRBPR. Denies fevers. GENERAL: Mildly ill-appearing, elderly, and in no acute distress. HEAD: Normocephalic, atraumatic. CHEST: Clear to auscultation. ?No respiratory distress. HEART: Regular rate and rhythm.? ABD: Mild TTP in epigastric and periumbilical region. Normoactive BS. NEURO: ?Alert and oriented x3. Patient screened in triage and initial orders placed.? ?Additional care and disposition to be based upon?diagnostic testing and treatment. <CASSIDY Packer Last Filed: 11/21/23 17:58> Source: patient and family <CASSIDY Packer Last Filed: 11/21/23 17:58> Mode of arrival: ambulatory <CASSIDY Packer Last Filed: 11/21/23 17:58> Limitations: no limitations <CASSIDY Packer Last Filed: 11/21/23 17:58> History of Present Illness HPI narrative: 83-year-old female presenting with multiple complaints. Complains of substernal chest pain that goes into her left shoulder and upper abdomen. Complains of persistent nausea and intermittent vomiting. States that she was able to take her meds this morning but then she vomited up water. States that she has had multiple episodes of esophageal strictures. Complains of generalized malaise, no focal numbness or weakness. No fevers. <Soraida Fuller MD - Last Filed: 11/30/23 12:47> Related Data Home Medications: Home Medications Medication Instructions Recorded Confirmed acetaminophen 325 mg tablet 325 mg PO Q6H PRN Pain, Mild 12/21/18 11/23/23 (Tylenol) calcium carbonate (Calcium 500) 500 mg PO DAILY 12/21/18 11/23/23 cetirizine 10 mg capsule (Zyrtec) 10 mg PO DAILY 12/21/18 11/23/23 cyanocobalamin (vitamin B-12) 2,000 mcg PO EVERY OTHER DAY 12/21/18 11/23/23 1,000 mcg capsule multivitamin (Multiple Vitamins 1 tablet PO EVERY OTHER DAY 12/21/18 11/23/23 tablet) carboxymethyl 0.5 %-glycerin 1 1 drp EACH EYE Q2-4H PRN Dry Eye(S) 09/25/20 11/23/23 %-polysorb 80 0.5 %-PF eye dropperette (Refresh Optive John-3 (PF)) diltiazem HCl 60 mg 30 mg PO BID 09/25/20 11/23/23 capsule,extended release 12 hr ferrous sulfate 325 mg (65 mg 325 mg PO DAILY 05/04/21 11/23/23 iron) tablet docusate sodium 100 mg capsule 100 mg PO TID PRN Constipation 02/15/23 11/23/23 (Stool Softener) vit C 250 mg-vit E 90 mg-zinc 40 1 tablet PO BID 02/15/23 11/23/23 mg-copper 1 [id number] capsule (PreserVision AREDS-2) alprazolam 0.5 mg tablet 0.5 mg PO DAILY PRN anxiety; 11/21/23 11/23/23 insomnia famotidine 20 mg tablet 20 mg PO DAILY 11/21/23 11/23/23 <Shayla Mclean PA-C - Last Filed: 11/21/23 17:58> Allergies/Adverse Reactions: Allergies Allergy/AdvReac Type Severity Reaction Status Date / Time Penicillins Allergy Intermediate rash Verified 11/23/23 13:48 hydromorphone [From Dilaudid] AdvReac Intermediate Anxiety Verified 11/23/23 09:55 iohexol AdvRe
[2023-11-21] MEDS: PANTOPRAZOLE SODIUM IV 40 MG VIAL IV PUSH (18:01)
[2023-11-21] MEDS: ONDANSETRON INJ 4 MG/2 ML VIAL IV PUSH (18:01)
[2023-11-21 18:51] LABS: Influenza A QL RT-PCR Negative (Negative); Influenza B QL RT-PCR Negative (Negative); RSV RNA, RT-PCR Negative (Negative); SARS-CoV-2 RNA PCR Negative (Negative)
--- NOTE | 2023-11-21 19:06 | ECG_ITS ---
Test Date: 2023-11-21 19:24:35 Measurements Intervals [place] Rate: 77 P: 57 NC: 165 QRS: -25 QRSD: 90 T: -4 QT: 373 QTc: 423 Interpretive Statements SINUS RHYTHM LOW QRS VOLTAGE IN PRECORDIAL LEADS [QRS DEFLECTION < 1.0 mV IN CHEST LEADS] PREVIOUS ANTERIOR INFARCTION MINOR T-WAVE ABNORMALITY ABNORMAL ECG Compared to ECG 11/21/2023 16:12:01 NO SIGNIFICANT CHANGE Electronically Signed On 11-22-2023 07:19:46 CDT by Prem Shields M.D.
[2023-11-21] MEDS: SODIUM CHLORIDE 0.9% IV 1,000 ML 999 ML IV CONT ×2 (19:44→21:50)
[2023-11-21 19:52] LABS: Magnesium 2.4 mg/dL (1.6-2.3)
[2023-11-21 20:04] LABS: Troponin I < 0.012 ng/mL (0.000-0.034)
[2023-11-21 21:03] LABS: NT Pro B Type Natriuretic Pept 402 pg/mL (19.9-100)
[2023-11-21 21:22] LABS: Add Urine Microscopic? YES; Appearance Urine Cloudy (Clear); Bacteria Urine 4+ /hpf; Bilirubin Urine Negative (Negative); Blood Urine Negative (Negative); Color Urine Yellow (Yellow); Glucose Urine UA Negative (Negative); Ketones Urine Trace mg/dL (Negative); Leukocyte Esterase Ur 2+ LEU/UL (Negative); Need Manual Microscopic Reviewed; Nitrate Urine Positive (Negative); Protein Urine Trace mg/dL (Negative); RBC Urine 21-50 /hpf (0-2); Specific Grav Ur 1.015 (1.001-1.035); Squamous Epithelial Cell Urine Occasional /hpf (Few); Urobilinogen Urine 0.2 mg/dL (<2.0); WBC Urine 51-100 /hpf (0-3); pH Urine 5.5 (5.0-9.0)
[2023-11-21 21:39] LABS: D Dimer 1.46 ug/mL (<0.48)
[2023-11-21] MEDS: cefTRIAXone 2 GM/NS 100 ML 2 GM/100 ML BAG IVPB (21:49)
[2023-11-21] MEDS: fentaNYL CITRATE INJ (*CRX) 100 MCG/2 ML VIAL 25 MCG IV PUSH (21:50)
--- NOTE | 2023-11-21 22:02 | PM.IMHP ---
H&P: HPI History of Present Illness Date/Time: 11/21/23 22:02 Chief Complaint: generalized weakness Narrative: This is an 83-year-old female with past medical history significant for obesity, esophageal stricture, GERD, atrial fibrillation, rate controlled, chronic kidney disease, adrenal insufficiency, hypothyroidism. patient was brought to the emergency room for evaluation due to generalized weakness, dysphagia, lethargy. Patient had been regurgitating liquids and only able to swallow pills. most of the history has been obtained from daughter who is at bedside. Preliminary workup was significant for urinalysis with numerous WBCs present, CT angiogram of the chest was significant for subsegmental acute pulmonary embolism. CTA chest PE protocol Ordering provider: Soraida Fuller MD History: 83 years Female with . SOB, CP, elevated dimer . Comparison: None. Technique: CT angiogram chest was performed following timed intravenous injection of contrast. Thin slice axial images and reformatted coronal images were obtained. Three dimensional reformatted images of the chest were also obtained using a [employer] workstation. . Automated exposure control and iterative reconstruction technique were employed. The dose-length product was 543.72 mGy-cm. 100 mL Omnipaque 350 was given IV. Findings: PULMONARY ARTERIES: No pulmonary embolus in the main vessels. Possible filling defects in the left lower lobe branches is not excluded. VISUALIZED THORACIC INLET: Normal. Left bipolar pacemaker. MEDIASTINUM: Aorta/coronary arteries: Mild atheromatous disease. Heart/other: The heart is not enlarged. Lymph nodes: No mediastinal or hilar adenopathy. LUNGS: No pulmonary nodules or masses. No infiltrates or effusions. No pneumothorax. VISUALIZED UPPER ABDOMEN: Sliding hiatus hernia. Postoperative changes in the stomach. Bilateral kidney cysts. Fat infiltration of the liver. Otherwise, the visualized upper abdomen is normal. MUSCULOSKELETAL: Soft tissues: The superficial soft tissues are normal. Bones: Age appropriate degenerative changes of the spine. IMPRESSION: 1. Filling defects are seen in the left subsegmental branches suggestive of pulmonary embolism. No filling defects in the main pulmonary arteries. 2. No acute cardiopulmonary pathology. 3. Sliding hiatus hernia. EXAMINATION: CT abdomen pelvis wo con DATE: 11/21/2023 18:14 INDICATION: Upper abdominal pain. Nausea and vomiting. TECHNIQUE: Computed tomography (CT) of the abdomen and pelvis was performed without intravenous contrast. Automated exposure control and iterative reconstruction technique were employed. The dose-length product was 971.79 mGy-cm. COMPARISON: CT abdomen and pelvis 05/23/2016 FINDINGS: The visualized portions of lung bases demonstrate mild atelectasis. No pleural effusion. The heart size is normal. There is a trace pericardial effusion. There are pacer wires in right atrium and right ventricle. There are changes of gastric bypass procedure. There is a small sliding hiatal hernia. The liver and spleen are normal. There are changes of cholecystectomy. The pancreas and adrenal glands are normal. There is mild atrophy of the kidneys. There are cysts in the kidneys measuring up to 12 mm on the left. There is no urolithiasis. There is diverticulosis of the colon without evidence of diverticulitis. There are no dilated loops of bowel. The appendix is not visualized. There are no pathologically enlarged lymph nodes. There is no free intraperitoneal fluid. There is a total left hip arthroplasty. There is severe thoracic and lumbar spondylosis IMPRESSION: 1. Small sliding hiatal hernia. Gastric bypass procedure. EXAMINATION: XR chest 2V DATE: 11/21/2023 16:27 INDICATION: Chest pain and shortness of breath. TECHNIQUE: Frontal and lateral views of the chest were obtained. COMPARISON: Chest 2 views 04/06/16 FINDINGS: There is no pneumonia, pleural effus
--- NOTE | 2023-11-21 22:47 | ECG_ITS ---
Test Date: 2023-11-21 23:00:19 Measurements Intervals [place] Rate: 91 P: 54 NV: 202 QRS: -9 QRSD: 95 T: 4 QT: 384 QTc: 474 Interpretive Statements SINUS RHYTHM WITH BORDERLINE FIRST-DEGREE AV BLOCK PREVIOUS ANTERIOR INFARCTION MINOR T-WAVE ABNORMALITY ABNORMAL ECG ] Compared to ECG 11/21/2023 19:24:35 NO DIFFERENCE Electronically Signed On 11-22-2023 07:22:31 CDT by Prem Shields M.D.
[2023-11-21 23:30] LABS: Troponin I < 0.012 ng/mL (0.000-0.034)
[2023-11-22] VITALS (10 sets, daily range): BP systolic 150–155; BP diastolic 69–85; PULSE 89–99; RESP 18; TEMP 36.5–36.6; O2SAT 97–100
--- NOTE | 2023-11-22 | ECHO_ITS ---
Patient Info Name: Daniela Gómez Age: 83 years : 1940 Gender: Female Ht: 63 in Wt: 205 lbs BSA: 2.08 m2 HR: 93 bpm BP: 150 / 69 mmHg Heart Rhythm: Sinus Rhythm Technical Quality: Fair Exam Date: 11/22/2023 3:02 PM Exam Location: Echo Lab Patient Status: Inpatient Admit Date: 11/21/2023 Staff Ordering Physician: Queenie Smith APRN Instructional Technology Coach: Myra Hansen RDCS Attending Provider: Queenie Smith APRN Referring Physician: Luis YE; Exam Type: CA echo dop bubble study w con Study Info Indications - pe/r/o heart strain Complete two-dimentional, color flow and Doppler transthoracic echocardiogram is performed with agitated saline and with contrast to opacify the left ventricle and to improve the delineation of the left ventricle endocardial borders. Contrast/Agitated Saline Contrast/Ag. Saline: Definity Amount: 2.00 ml Administered By: Myra Hansne RDCS Existing IV Access: Yes IV Access Condition: patent with no signs of infiltration Contrast/Ag. Saline: Agitated Saline Amount: 20.00 ml Existing IV Access: Yes IV Access Condition: patent with no signs of infiltration Summary 1. Definity contrast utilized to improve visualization. 2. Normal left ventricular size with hyperdynamic systolic contractility. 3. Normal right ventricular size and systolic function no findings indicative of right ventricular pressure overload. 4. Mildly sclerotic aortic valve which is nonstenotic no significant valve dysfunction. 5. Agitated saline contrast study negative for shunt. Left Ventricle Left ventricular chamber dimension is normal. Left ventricular systolic function is hyperdynamic, estimated at >70%. The left ventricular diastolic function is grade I diastolic dysfunction. Right Ventricle Right ventricular chamber dimension is normal. Left Atria Left atrial chamber dimension is normal. Right Atria Right atrial chamber dimension is normal. Aortic Valve The aortic valve is trileaflet. There is mild aortic valve sclerosis. There is no aortic valve stenosis. Pulmonic Valve The pulmonic valve is not well visualized. Mitral Valve The mitral valve has normal leaflets. Tricuspid Valve The tricuspid valve leaflets are normal. Pericardium/Pleural The pericardium appears normal. Aorta The aortic root size at the sinus of Valsalva is normal. Left Ventricular Outflow Tract Name Value Normal LVOT 2D LVOT Diameter 2.1 cm LVOT Doppler LVOT Peak Gradient 7 mmHg LVOT Mean Gradient 4 mmHg LVOT VTI 25 cm LVOT VTI/AV VTI Ratio 0.8 LVOT Stroke Volume 88 ml LVOT CO 7.0 l/min LVOT CI 3.4 l/min/m2 Pulmonic Valve Name Value Normal RVOT Doppler
[2023-11-22] MEDS: ONDANSETRON INJ 4 MG/2 ML VIAL IV PUSH ×2 (04:17→10:40)
[2023-11-22] MEDS: SODIUM CHLORIDE 0.9% IV 1,000 ML 100 ML IV CONT ×2 (08:59→20:34)
[2023-11-22] MEDS: ENOXAPARIN 100 MG/ML SYRINGE 93 MG SUB-Q (09:03)
[2023-11-22 09:24] LABS: Alanine Aminotransferase 18 U/L (6-35); Alkaline Phosphatase 144 U/L (38-126); Anion Gap 15 mmol/L (4-12); Aspartate Amino Transferase 37 U/L (14-36); Bilirubin,Total 0.7 mg/dL (0.2-1.3); Blood Urea Nitrogen 24 mg/dL (7-17); Calcium 8.8 mg/dL (8.4-10.2); Carbon Dioxide 12 mmol/L (22-30); Chloride 112 mmol/L (98-107); Estimated CRCL calculation 21 ml/min; Estimated Glomerular Filt Rate 23; Glucose 129 mg/dL (65-110); Potassium 5.5 mmol/L (3.4-5.0); Sodium 139 mmol/L (137-145)
[2023-11-22 09:40] LABS: Hematocrit 35.6 % (37.0-47.0); Hemoglobin 11.2 g/dL (12.0-15.0); Mean Corpuscular HGB Conc 31.5 g/dl (32-36); Mean Corpuscular Hemoglobin 29.2 pg (26-34); Platelet Count Result 256 k/mm3 (150-375); Red Blood Count 3.83 M/mm3 (4.2-5.4); Red Cell Distribution Width 13.3 % (11.5-14.5); White Blood Count 8.4 K/mm3 (4.5-10.0)
[2023-11-22] MEDS: LORazepam INJ (*CRX) 2 MG/ML VIAL 0.5 MG IV PUSH ×3 (10:40→21:55)
--- NOTE | 2023-11-22 11:04 | PCSTNOTE ---
Unable to complete Bedside Swallow Evaluation this morning as patient is NPO for a possible EGD but also feeling unwell as if she may vomit. At this time BSE will be deferred until her physician feels she is ready/after the procedure.
--- NOTE | 2023-11-22 14:03 | WPDGICN ---
Assessment and Plan Assessment and plan (1) Dysphagia: Code(s): R13.10 - Dysphagia, unspecified Status: Acute Plan The patient has chronic, severe GERD, suboptimally treated with famotidine, and having progressive dysphagia, presumably secondary to a recurrent peptic stricture. Since she is receiving subcutaneous heparin, will hold her morning dose tomorrow and will schedule an EGD around noon. She might require esophageal dilatation. If this suspicion is confirmed, will initiate concomitant high-dose PPI therapy. 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 In addition, she has av block status post pacemaker placement, adrenal insufficiency and stage IV kidney failure. She has been experiencing [id number] dysphagia throughout the years espcialy to solids, however over the past 2 weeks he has had become progressively worsening to the point that she can not even swallow her regular medications. On a separate note, since she was complaining of ill-defined chest and back pain she underwent a CT scan angiogram of the chest which showed a small subsegmental pulmonary embolus incidentally. Review of Systems Review of Systems: All systems reviewed & are unremarkable except as noted in HPI and below PMFSH Past Medical History Medical History Adrenal insufficiency Depression Dysphagia End stage renal disease Hypothyroidism Surgical History Surgical History S/P placement of cardiac pacemaker Family History Family History Sibling Depression Family history of diabetes mellitus in first degree relative Family history of heart disease in male family member before age 55 Family history of arthritis Patient's brother is Father Carcinoma of colon Family history of congestive heart failure Family history of heart disease in male family member before age 55 Mother Family history of congestive heart failure Family history of heart disease in male family member before age 55 Other Diabetes mellitus Family history of allergic disorder Hypertension Social History Social History Smoking status: Never smoker Second hand tobacco smoke exposure: No Alcohol intake: never Substance use: never Do You Feel Safe in your Home?: Yes Lack of Transportation: No Lack of Food: Never True Current Housing: I Have Housing Concerned About Future Housing: No Difficulty Paying Gas/Electric Bills: No Difficulty Paying for Meds: No Currently Unemployed: No Education: Trade/Vocational Certificate Difficulty w/ Childcare or Family Care: No Gender identity (if verbalized by the patient): Female Spiritual care concerns: No Meds Home Medications and Allergies Home Medications Medication Instructions Recorded Confirmed Type acetaminophen 325 mg tablet 325 mg PO Q6H PRN Pain, Mild 12/21/18 11/21/23 History (Tylenol) calcium carbonate (Calcium 500) 500 mg PO DAILY 12/21/18 11/21/23 History cetirizine 10 mg capsule (Zyrtec) 10 mg PO DAILY 12/21/18 11/21/23 History cyanocobalamin (vitamin B-12) 2,000 mcg PO EVERY OTHER DAY 12/21/18 11/21/23 History 1,000 mcg capsule multivitamin (Multiple Vitamins 1 tablet PO EVERY OTHER DAY 12/21/18 11/21/23 History tablet) carboxymethyl 0.5 %-glycerin 1 1 drp EACH EYE Q2-4H PRN Dry Eye(S) 09/25/20 11/21/23 History %-polysorb 80 0.5 %-PF eye dropperette (Refresh Optive John-3 (PF)) diltiazem
--- NOTE | 2023-11-22 14:53 | P.PNIM_ITS ---
Progress Note: A&P Assessment and Plan (1) Pulmonary embolism: Code(s): I26.99 - Other pulmonary embolism without acute cor pulmonale Status: Acute Assessment and Plan: * CTA showing left sub segmental branches suggestive pulmonary embolism * On full-dose Lovenox to dysphagia * Will transition to oral Eliquis when tolerating oral intake * GI/family requesting LE dopplers although on AC and pulses 2+ Bilateral, no edema, pain or erythema and will not change treatment plan * ECHO pending to R/O RT heart strain/afib however she is 98% on RA and denies SOB (2) Dysphagia: Code(s): R13.10 - Dysphagia, unspecified Status: Acute Assessment and Plan: * GI consulted * HX of esophageal strictures with dilation 2019 * Speech eval * NPO * Plan for EGD tomorrow at noon (3) UTI (urinary tract infection): Code(s): N39.0 - Urinary tract infection, site not specified Status: Acute Assessment and Plan: * Urine cultures pending * Continue IV hydration. * Rocephin IV pending cultures (4) CKD (chronic kidney disease): Code(s): N18.9 - Chronic kidney disease, unspecified Status: Acute Assessment and Plan: * Creatinine at baseline * Gentle IV hydration. * nephrology consulted * Avoid nephrotoxic drugs. * Monitor antihypertensive drug therapy. * Avoid NSAIDs. * Routine CMP monitoring GFR. * Monitor electrolytes especially potassium. * Antibiotic doses depending on creatinine clearance. * Pharmacy does medications. * Routine follow-up with Nephrology as an outpatient. (5) Anxiety: Code(s): F41.9 - Anxiety disorder, unspecified Status: Acute Assessment and Plan: * Patient normally takes Xanax p.o. * Will start on IV Ativan transition back to home medications when tolerating p.o. Plan Code status: Full code per patient DVT prophylaxis: Lovenox Stress ulcer prophylaxis: Protonix 40 daily PT/OT notes: PT/OT pending Disposition: Patient continues admission to the medical unit is currently being treated for urinary tract infection, pulmonary emboli and dysphagia will undergo EGD for evaluation of esophageal stricture with possible dilation. Patient currently on full-dose Lovenox will transition to p.o. Eliquis once tolerating oral intake. Time Spent With Patient Time with patient: Greater than 35 minutes Subjective Date/time seen: 11/22/23 14:53 Interval history: Patient 83-year-old female who continues admission for a pulmonary embolism, UTI and possible esophageal stricture. 11/22/2023: Assumed Care Patient with N/V during assessment reports she does not feel well, dizzy and as though she is going to pass out while blood was getting drawn. Daughter at bedside and updated on current diagnosis and treatment. Daughter reported patient has severe anxiety. Daughter updated on CTA showing filling defects LT subsegmental branches suggestive of pulmonary embolism. Patient has history esophageal strictures last dilation 6 years ago consult
--- NOTE | 2023-11-22 14:53 | PM.IMPN ---
Progress Note: A&P Assessment and Plan (1) Pulmonary embolism: Code(s): I26.99 - Other pulmonary embolism without acute cor pulmonale Status: Acute Assessment and Plan: CTA showing left sub segmental branches suggestive pulmonary embolism On full-dose Lovenox to dysphagia Will transition to oral Eliquis when tolerating oral intake GI/family requesting LE dopplers although on AC and pulses 2+ Bilateral, no edema, pain or erythema and will not change treatment plan ECHO pending to R/O RT heart strain/afib however she is 98% on RA and denies SOB (2) Dysphagia: Code(s): R13.10 - Dysphagia, unspecified Status: Acute Assessment and Plan: GI consulted HX of esophageal strictures with dilation 2018 Speech eval NPO Plan for EGD tomorrow at noon (3) UTI (urinary tract infection): Code(s): N39.0 - Urinary tract infection, site not specified Status: Acute Assessment and Plan: Urine cultures pending Continue IV hydration. Rocephin IV pending cultures (4) CKD (chronic kidney disease): Code(s): N18.9 - Chronic kidney disease, unspecified Status: Acute Assessment and Plan: Creatinine at baseline Gentle IV hydration. nephrology consulted Avoid nephrotoxic drugs. Monitor antihypertensive drug therapy. Avoid NSAIDs. Routine CMP monitoring GFR. Monitor electrolytes especially potassium. Antibiotic doses depending on creatinine clearance. Pharmacy does medications. Routine follow-up with Nephrology as an outpatient. (5) Anxiety: Code(s): F41.9 - Anxiety disorder, unspecified Status: Acute Assessment and Plan: Patient normally takes Xanax p.o. Will start on IV Ativan transition back to home medications when tolerating p.o. Plan Code status: Full code per patient DVT prophylaxis: Lovenox Stress ulcer prophylaxis: Protonix 40 daily PT/OT notes: PT/OT pending Disposition: Patient continues admission to the medical unit is currently being treated for urinary tract infection, pulmonary emboli and dysphagia will undergo EGD for evaluation of esophageal stricture with possible dilation. Patient currently on full-dose Lovenox will transition to p.o. Eliquis once tolerating oral intake. Time Spent With Patient Time with patient: Greater than 35 minutes Subjective Date/time seen: 11/22/23 14:53 Interval history: Patient 83-year-old female who continues admission for a pulmonary embolism, UTI and possible esophageal stricture. 11/22/2023: Assumed Care Patient with N/V during assessment reports she does not feel well, dizzy and as though she is going to pass out while blood was getting drawn. Daughter at bedside and updated on current diagnosis and treatment. Daughter reported patient has severe anxiety. Daughter updated on CTA showing filling defects LT subsegmental branches suggestive of pulmonary embolism. Patient has history esophageal strictures last dilation 6 years ago consulted GI will likely need EGD and possible dilation. Although echocardiogram has been ordered to rule out heart heart strain in assess for atrial fibrillation it was requested that patient have lower extremity Dopplers although already being treated with anticoagulation, patient denied any leg pain, swelling or erythema but daughter did report patient has been less ambulatory. Pulses 2+ some bilateral lower extremity. Review of Systems Review of Systems: All systems reviewed & are unremarkable except as noted in HPI and below Exam Narrative: Physical Exam: GENERAL: Alert and oriented x 3. No acute distress. Severely anxious EYES: EOMI. No scleral icterus. PERRLA. HEENT: Moist mucous membranes. LUNGS: Clear to auscultation bilaterally. No accessory muscle use. CARDIOVASCULAR: Regular rate and rhythm. No murmur. S1-S2 ABDOMEN: Soft, non tenderness and
[2023-11-22] MEDS: PERFLUTREN LIPID MICROSPHERES 1.5 ML VIAL DILUTED TO 10 ML TOTAL VOLUME IV PUSH (15:30)
[2023-11-22] MEDS: SODIUM ZIRCONIUM CYCLOSILICATE 10 GM POWD.PACK PO (16:01)
--- NOTE | 2023-11-22 16:09 | IVDEFINITY ---
Prior to administration of IV Definity the patient was educated on the risks and benefits of the imaging enhancing agent including potential adverse side effects. The patient verbalized understanding. Allergies were verified. No exclusion criteria were identified and at least one of the following inclusion criteria were met: 1) physician request, 2) patient technically difficult to image (per the [place] [employer] guidelines of two or more segments not discernable within the apical view), or 3) questionable left ventricular function. ?
[2023-11-22] MEDS: ACIDOPHILUS/BULGARICUS CHEWABLE TABLET 1 TABLET PO (20:38)
[2023-11-22] MEDS: dilTIAZem HCL 30 MG TABLET PO (20:38)
[2023-11-23] VITALS (17 sets, daily range): BP systolic 129–177; BP diastolic 59–95; PULSE 67–91; RESP 18–22; TEMP 36.3–37; O2SAT 98–100; BMI 35.5
[2023-11-23] MEDS: SODIUM CHLORIDE 0.9% IV 1,000 ML 100 ML IV CONT ×2 (06:25→19:21)
[2023-11-23 07:18] LABS: Hemoglobin 9.6 g/dL (12.0-15.0); Mean Corpuscular Hemoglobin 29.4 pg (26-34); Mean Corpuscular Volume 94.8 fl (80-100); Mean Platelet Volume 9.2 fl (7.4-10.4); Platelet Count Result 226 k/mm3 (150-375); Red Blood Count 3.27 M/mm3 (4.2-5.4); Red Cell Distribution Width 13.4 % (11.5-14.5); White Blood Count 7.2 K/mm3 (4.5-10.0)
[2023-11-23 07:40] LABS: Alanine Aminotransferase 17 U/L (6-35); Alkaline Phosphatase 103 U/L (38-126); Anion Gap 10 mmol/L (4-12); Aspartate Amino Transferase 33 U/L (14-36); Bilirubin,Total 0.4 mg/dL (0.2-1.3); Blood Urea Nitrogen 24 mg/dL (7-17); Calcium 8.7 mg/dL (8.4-10.2); Carbon Dioxide 15 mmol/L (22-30); Chloride 115 mmol/L (98-107); Estimated CRCL calculation 23 ml/min; Estimated Glomerular Filt Rate 25; Glucose 87 mg/dL (65-110); Potassium 4.3 mmol/L (3.4-5.0); Sodium 140 mmol/L (137-145)
[2023-11-23] MEDS: PANTOPRAZOLE SODIUM IV 40 MG VIAL IV PUSH (08:27)
[2023-11-23] MEDS: dilTIAZem HCL 30 MG TABLET PO ×2 (08:27→20:53)
[2023-11-23] MEDS: LORazepam INJ (*CRX) 2 MG/ML VIAL 0.5 MG IV PUSH ×3 (08:35→22:03)
--- NOTE | 2023-11-23 09:40 | PC.NURSE ---
Verbal report given to Lisa PETER. To GI LAB via wheelchair.
[2023-11-23] MEDS: LACTATED RINGERS 1,000 ML 150 ML IV CONT (10:04)
--- NOTE | 2023-11-23 10:39 | PM.IMHP ---
H&P: HPI History of Present Illness Date/Time: 11/23/23 10:39 Chief Complaint: dyspgagia Narrative: The patient was seen yesterday in consultation. She has a history of gastric bypass and chronic progressive dysphagia and that has worsened over the past week or 2, now being unable to swallow pills or liquids. Here for EGD and possible dilatation. Review of Systems Review of Systems: All systems reviewed & are unremarkable except as noted in HPI and below PMFSH Past Medical History Medical History Adrenal insufficiency Depression Dysphagia End stage renal disease Hypothyroidism Surgical History Surgical History S/P placement of cardiac pacemaker Family History Family History Sibling Depression Family history of diabetes mellitus in first degree relative Family history of heart disease in male family member before age 55 Family history of arthritis Patient's brother is Father Carcinoma of colon Family history of congestive heart failure Family history of heart disease in male family member before age 55 Mother Family history of congestive heart failure Family history of heart disease in male family member before age 55 Other Diabetes mellitus Family history of allergic disorder Hypertension Social History Social History Smoking status: Never smoker Second hand tobacco smoke exposure: No Alcohol intake: never Substance use: never Do You Feel Safe in your Home?: Yes Lack of Transportation: No Lack of Food: Never True Current Housing: I Have Housing Concerned About Future Housing: No Difficulty Paying Gas/Electric Bills: No Difficulty Paying for Meds: No Currently Unemployed: No Education: Trade/Vocational Certificate Difficulty w/ Childcare or Family Care: No Gender identity (if verbalized by the patient): Female Spiritual care concerns: No Meds Home Medications and Allergies Home Medications Medication Instructions Recorded Confirmed Type acetaminophen 325 mg tablet 325 mg PO Q6H PRN Pain, Mild 12/21/18 11/23/23 History (Tylenol) calcium carbonate (Calcium 500) 500 mg PO DAILY 12/21/18 11/23/23 History cetirizine 10 mg capsule (Zyrtec) 10 mg PO DAILY 12/21/18 11/23/23 History cyanocobalamin (vitamin B-12) 2,000 mcg PO EVERY OTHER DAY 12/21/18 11/23/23 History 1,000 mcg capsule multivitamin (Multiple Vitamins 1 tablet PO EVERY OTHER DAY 12/21/18 11/23/23 History tablet) carboxymethyl 0.5 %-glycerin 1 1 drp EACH EYE Q2-4H PRN Dry Eye(S) 09/25/20 11/23/23 History %-polysorb 80 0.5 %-PF eye dropperette (Refresh Optive John-3 (PF)) diltiazem HCl 60 mg 30 mg PO BID 09/25/20 11/23/23 History capsule,extended release 12 hr ferrous sulfate 325 mg (65 mg 325 mg PO DAILY 05/04/21 11/23/23 History iron) tablet ergocalciferol (vitamin D2) 1,250 50,000 unit PO WEEKLY #12 caps 08/25/22 11/23/23 Rx mcg (50,000 unit) capsule (Vitamin D2) calcitriol 0.5 mcg capsule 0.5 mcg PO DAILY #90 caps 11/18/22 11/23/23 Rx docusate sodium 100 mg capsule 100 mg PO TID PRN Constipation 02/15/23 11/23/23 History (Stool Softener) vit C 250 mg-vit E 90 mg-zinc 40 1 tablet PO BID 02/15/23 11/23/23 History mg-copper 1 [id number] capsule (PreserVision AREDS-2) levothyroxine 25 mcg tablet 25 mcg PO DAILY #90 tabs 06/09/23 11/23/23 Rx fluticasone propionate 50 2 spray intranasal DAILY PRN nasal 09/15/23 11/23/23 Rx mcg/actuation nasal congestion #15.8 mL spray,suspension eszopiclone 2 mg tablet (Lunesta) 2 mg PO .HS PRN sleep #30 tabs 09/29/23 11/23/23 Rx alprazolam 0.5 mg tablet 0.5 mg PO DAILY PRN anxiety; 11/21/23 11/23/23 History insomnia famotidine 20 mg tablet 20 mg PO
--- NOTE | 2023-11-23 10:48 | WPDANESEPPF ---
Anes - Initial Pre Proc Eval Procedure: Operation Date: 11/23/23 10:00 Proposed Procedures p Esophagogastroduodenoscopy - Antonio Jones MD Date/Time: 11/23/23 10:48 Surgeon: Queenie Smith APRN Pre Op Diagnosis: UTI, Failure to thrive Patient Data Age: 83 Gender: F Height: 1.6 m Weight: 91 kg Last Vital Signs Temp 97.3 F L 11/23/23 09:58 Pulse 78 11/23/23 09:58 Resp 18 11/23/23 09:58 BP 129/59 L 11/23/23 09:58 Pulse Ox 100 11/23/23 09:58 O2 Del Method Room Air 11/23/23 09:58 FiO2 21 11/22/23 20:30 Allergies Allergy/AdvReac Type Severity Reaction Status Date / Time Penicillins Allergy Intermediate rash Verified 11/23/23 09:55 hydromorphone [From Dilaudid] AdvReac Intermediate Anxiety Verified 11/23/23 09:55 iohexol AdvReac Other Verified 11/23/23 09:56 [From contrast - CT, X-RAY] Home Medications Medication Instructions Recorded Confirmed Type acetaminophen 325 mg tablet 325 mg PO Q6H PRN Pain, Mild 12/21/18 11/23/23 History (Tylenol) calcium carbonate (Calcium 500) 500 mg PO DAILY 12/21/18 11/23/23 History cetirizine 10 mg capsule (Zyrtec) 10 mg PO DAILY 12/21/18 11/23/23 History cyanocobalamin (vitamin B-12) 2,000 mcg PO EVERY OTHER DAY 12/21/18 11/23/23 History 1,000 mcg capsule multivitamin (Multiple Vitamins 1 tablet PO EVERY OTHER DAY 12/21/18 11/23/23 History tablet) carboxymethyl 0.5 %-glycerin 1 1 drp EACH EYE Q2-4H PRN Dry Eye(S) 09/25/20 11/23/23 History %-polysorb 80 0.5 %-PF eye dropperette (Refresh Optive John-3 (PF)) diltiazem HCl 60 mg 30 mg PO BID 09/25/20 11/23/23 History capsule,extended release 12 hr ferrous sulfate 325 mg (65 mg 325 mg PO DAILY 05/04/21 11/23/23 History iron) tablet ergocalciferol (vitamin D2) 1,250 50,000 unit PO WEEKLY #12 caps 08/25/22 11/23/23 Rx mcg (50,000 unit) capsule (Vitamin D2) calcitriol 0.5 mcg capsule 0.5 mcg PO DAILY #90 caps 11/18/22 11/23/23 Rx docusate sodium 100 mg capsule 100 mg PO TID PRN Constipation 02/15/23 11/23/23 History (Stool Softener) vit C 250 mg-vit E 90 mg-zinc 40 1 tablet PO BID 02/15/23 11/23/23 History mg-copper 1 [id number] capsule (PreserVision AREDS-2) levothyroxine 25 mcg tablet 25 mcg PO DAILY #90 tabs 06/09/23 11/23/23 Rx fluticasone propionate 50 2 spray intranasal DAILY PRN nasal 09/15/23 11/23/23 Rx mcg/actuation nasal congestion #15.8 mL spray,suspension eszopiclone 2 mg tablet (Lunesta) 2 mg PO .HS PRN sleep #30 tabs 09/29/23 11/23/23 Rx alprazolam 0.5 mg tablet 0.5 mg PO DAILY PRN anxiety; 11/21/23 11/23/23 History insomnia famotidine 20 mg tablet 20 mg PO DAILY 11/21/23 11/23/23 History Laboratory Tests 11/23/23 06:56 WBC 7.2 K/mm3 (4.5-10.0) RBC 3.27 L M/mm3 (4.2-5.4) Hgb 9.6 L g/dL (12.0-15.0) Hct 31.0 L % (37.0-47.0) MCV 94.8 fl (80-100) MCH 29.4 pg (26-34) MCHC 31.0 L g/dl (32-36) RDW 13.4 % (11.5-14.5) Plt Count 226 k/mm3 (150-375) MPV 9.2 fl (7.4-10.4) Sodium 140 mmol/L (137-145) Potassium 4.3 mmol/L (3.4-5.0) Chloride 115 H mmol/L (98-107) Carbon Dioxide 15 L mmol/L (22-30) Anion Gap 10 mmol/L (4-12) BUN 24 H mg/dL (7-17) Creatinine 1.90 H mg/dL (0.7-1.0) Estim Creat Clear Calc 23 ml/min Estimated GFR 25 L (59 - ) Glucose 87 mg/dL (65-110) Calcium 8.7 mg/dL (8.4-10.2) Total Bilirubin 0.4 mg/dL (0.2-1.3) AST 33 U/L (14-36) ALT 17 U/L (6-35) Alkaline Phosphatase 103 U/L (38-126) Total Protein 6.0 L g/dL (6.3-8.2) Albumin 3.0 L g/dL (3.5-5.1) Patient hx anesthesia problems: none Family hx anesthesia problems: none Results Review: All pre-operative results and documents have been reviewed as part of the pre-operative evaluation. [facility] Past Medical History Medical History (Reviewed 11/21/23 @ 20:32 by Soraida Fuller MD
--- NOTE | 2023-11-23 12:11 | SUR.PHASEII ---
Notified of elevated blood pressure. Order for hydralazine 5mg
--- NOTE | 2023-11-23 12:30 | PC.NURSE ---
Returned from GI Lab via stretcher. Family at bedside.
[2023-11-23] MEDS: ACIDOPHILUS/BULGARICUS CHEWABLE TABLET 1 TABLET PO ×3 (12:46→20:53)
--- NOTE | 2023-11-23 13:41 | P.PNIM_ITS ---
Progress Note: A&P Assessment and Plan (1) Pulmonary embolism: Code(s): I26.99 - Other pulmonary embolism without acute cor pulmonale Status: Acute Assessment and Plan: * CTA showing left sub segmental branches suggestive pulmonary embolism * On full-dose Lovenox to dysphagia * Will transition to oral Eliquis when tolerating oral intake * GI/family requesting LE dopplers although on AC and pulses 2+ Bilateral, no edema, pain or erythema and will not change treatment plan * ECHO pending to R/O RT heart strain/afib however she is 98% on RA and denies SOB 11/23/2023: * Echo no HR or shunting LVEF >70 * dopplers negative * Transition to Eliquis post EGD recommend 3 to 6 month treatment (2) Dysphagia: Code(s): R13.10 - Dysphagia, unspecified Status: Acute Assessment and Plan: * GI consulted * HX of esophageal strictures with dilation 2019 * Speech eval * NPO * Plan for EGD tomorrow at noon 11/23/23: * Chronic Gastric ulcer * PPI/Carafate/Pepcid * Advance to full liquid (3) UTI (urinary tract infection): Code(s): N39.0 - Urinary tract infection, site not specified Status: Acute Assessment and Plan: * Urine cultures pending * Continue IV hydration. * Rocephin IV pending cultures 11/23/23: * Transition to PO Cefdinir Culture did not grow anything but UA suspicious of UTI will still treat * Nitrate +, Leukocytes +, bacteria, WBC (4) CKD (chronic kidney disease): Code(s): N18.9 - Chronic kidney disease, unspecified Status: Acute Assessment and Plan: * Creatinine at baseline * Gentle IV hydration. * nephrology consulted * Avoid nephrotoxic drugs. * Monitor antihypertensive drug therapy. * Avoid NSAIDs. * Routine CMP monitoring GFR. * Monitor electrolytes especially potassium. * Antibiotic doses depending on creatinine clearance. * Pharmacy does medications. * Routine follow-up with Nephrology as an outpatient. (5) Anxiety: Code(s): F41.9 - Anxiety disorder, unspecified Status: Acute Assessment and Plan: * Patient normally takes Xanax p.o. * Will start on IV Ativan transition back to home medications when tolerating p.o. 11/23/2023: * Would recommend another anxiety medication such as sertraline Plan Code status: Full code per patient DVT prophylaxis: Eliquis Stress ulcer prophylaxis: Protonix 40 daily PT/OT notes: PT/OT pending Disposition: Patient continues admission to the medical unit is currently being treated for urinary tract infection, pulmonary emboli and dysphagia chronic gastric ulcer found will start advancing diet as tolerated. PT/OT pending for recs but will likely return home would recommend with home health. Time Spent With Patient Time with patient: 25 - 35 minutes Subjective Date/time seen: 11/23/23 13:41 Interval history: Patient 83-year-old female who continues admission for a pulmonary embolism, UTI and possible esophageal stricture. 1
--- NOTE | 2023-11-23 13:41 | PM.IMPN ---
Progress Note: A&P Assessment and Plan (1) Pulmonary embolism: Code(s): I26.99 - Other pulmonary embolism without acute cor pulmonale Status: Acute Assessment and Plan: CTA showing left sub segmental branches suggestive pulmonary embolism On full-dose Lovenox to dysphagia Will transition to oral Eliquis when tolerating oral intake GI/family requesting LE dopplers although on AC and pulses 2+ Bilateral, no edema, pain or erythema and will not change treatment plan ECHO pending to R/O RT heart strain/afib however she is 98% on RA and denies SOB 11/23/2023: Echo no HR or shunting LVEF >70 dopplers negative Transition to Eliquis post EGD recommend 3 to 6 month treatment (2) Dysphagia: Code(s): R13.10 - Dysphagia, unspecified Status: Acute Assessment and Plan: GI consulted HX of esophageal strictures with dilation 2019 Speech eval NPO Plan for EGD tomorrow at noon 11/23/23: Chronic Gastric ulcer PPI/Carafate/Pepcid Advance to full liquid (3) UTI (urinary tract infection): Code(s): N39.0 - Urinary tract infection, site not specified Status: Acute Assessment and Plan: Urine cultures pending Continue IV hydration. Rocephin IV pending cultures 11/23/23: Transition to PO Cefdinir Culture did not grow anything but UA suspicious of UTI will still treat Nitrate +, Leukocytes +, bacteria, WBC (4) CKD (chronic kidney disease): Code(s): N18.9 - Chronic kidney disease, unspecified Status: Acute Assessment and Plan: Creatinine at baseline Gentle IV hydration. nephrology consulted Avoid nephrotoxic drugs. Monitor antihypertensive drug therapy. Avoid NSAIDs. Routine CMP monitoring GFR. Monitor electrolytes especially potassium. Antibiotic doses depending on creatinine clearance. Pharmacy does medications. Routine follow-up with Nephrology as an outpatient. (5) Anxiety: Code(s): F41.9 - Anxiety disorder, unspecified Status: Acute Assessment and Plan: Patient normally takes Xanax p.o. Will start on IV Ativan transition back to home medications when tolerating p.o. 11/23/2023: Would recommend another anxiety medication such as sertraline Plan Code status: Full code per patient DVT prophylaxis: Eliquis Stress ulcer prophylaxis: Protonix 40 daily PT/OT notes: PT/OT pending Disposition: Patient continues admission to the medical unit is currently being treated for urinary tract infection, pulmonary emboli and dysphagia chronic gastric ulcer found will start advancing diet as tolerated. PT/OT pending for recs but will likely return home would recommend with home health. Time Spent With Patient Time with patient: 25 - 35 minutes Subjective Date/time seen: 11/23/23 13:41 Interval history: Patient 83-year-old female who continues admission for a pulmonary embolism, UTI and possible esophageal stricture. 11/23/2023: Patient seen post EGD still lethargic but answering questions. Patient still nauseous attempting to vomit but no substance. EGD showed chronic gastric ulcer. Patient denied any CP, SOB or dizziness. Review of Systems Review of Systems: N/V generalize weakness All systems reviewed & are unremarkable except as noted in HPI and below Exam Narrative: Physical Exam: GENERAL: Alert and oriented x 3. No acute distress. Severely anxious, drowsy EYES: EOMI. No scleral icterus. PERRLA. HEENT: Moist mucous membranes. LUNGS: Clear to auscultation bilaterally. No accessory muscle use. CARDIOVASCULAR: Regular rate and rhythm. No murmur. S1-S2 ABDOMEN: Soft, non tenderness and non-distended. No palpable masses. EXTREMITIES: No edema. Non-tender SKIN: No rashes or lesions. Skin warm, dry. NEUROLOGIC: No focal neurological deficits. PSYCHIATRIC: Anxious mood and affect. Obj
[2023-11-23] MEDS: ONDANSETRON INJ 4 MG/2 ML VIAL IV PUSH (14:20)
--- NOTE | 2023-11-23 14:24 | PCOTNOTE ---
Attempted to see pt. for occupational therapy evaluation. Pt. is residually sedated and not feeling well after procedure, declining to participate at this time.
--- NOTE | 2023-11-23 15:36 | PCSTNOTE ---
Spoke at length with daughter after patient's EGD;; patient was asleep the whole time therapist were talking. Daughter stated that she expected the BSE order to be discharged/discontinued after she spoke with the physician connected to the EGD. Therapist will confirm with physician before cancelling the order.
--- NOTE | 2023-11-23 16:12 | PCSTNOTE ---
Bedside Swallow Evaluation order being discontinued at hospitalist request as daughter reported that GI doctor does not believe patient's symptoms are a swallowing disorder but related to GI issues. No further ST indicated at this time.
[2023-11-23] MEDS: SUCRALFATE SUSP 100 MG/ML 10 ML UDC 1000 MG PO ×2 (16:31→20:53)
--- NOTE | 2023-11-23 19:23 | WPDGIPROGNO ---
Progress Note: A&P Assessment and Plan (1) Dysphagia: Code(s): R13.10 - Dysphagia, unspecified Status: Acute Plan EGD this am showed no strictures, neoplasms or rings to explain dysphagia. The EG junction waas wide open, making Achalasia unlikely. Biopsies taken to rule out EoE. Diagnostic possiblities include GERD related esophageal dysfunction or other non specific motility disorders. Swallowing problems arising from the oropharynx seem unlkely, although if biopsies of the esophagus rule out EoE before requesting esophageal manometry as an outpatient, will consider bedside speech therapy evaluation. Importantly, there was a significant size ulcer at the gastro jejunal anastomosis (likely ischemic like the majority of the ulcers in that location). The daughter and pt deny use of NSAIDS. H pylori will show in the gastric biopsies if present. The ulcer had a benign aspect, and was biopsied. Will recommend PPIs and Sucralfate 1 g 1 8 hours for the management, long-term. I would like to repeat EGD in 3 months. Doppler sonogram of the LLEE ordered to document absence of venous throumbus, not to assess arterial irrigation, and there was no evidence of DVT. Time Spent With Patient Time with patient: 15 - 25 minutes Subjective Date/time seen: 11/23/23 19:23 Interval history: No changes in current status. Exam Narrative: Unchanged from previous visit. Objective Data Vital Signs Vital Signs: Vital Signs - 24 hr 11/22/23 20:30 11/22/23 22:00 11/22/23 20:00 Temperature 97.7 F Pulse Rate 94 91 90 Respiratory Rate 18 18 Blood Pressure 153/85 H Pulse Oximetry 100 100 Oxygen Delivery Room Air Fraction of Inspired Oxygen 21 11/23/23 00:04 11/23/23 04:00 11/23/23 06:00 Temperature 98.6 F Pulse Rate 82 71 77 Respiratory Rate 18 Blood Pressure 139/60 Pulse Oximetry 100 Oxygen Delivery Fraction of Inspired Oxygen 11/23/23 09:28 11/23/23 08:27 11/23/23 08:03 Temperature Pulse Rate 89 Respiratory Rate 18 Blood Pressure Pulse Oximetry 100 Oxygen Delivery Room Air Room Air Fraction of Inspired Oxygen 11/23/23 09:58 11/23/23 11:29 11/23/23 11:39 Temperature 97.3 F L Pulse Rate 78 89 81 Respiratory Rate 18 21 H 21 H Blood Pressure 129/59 L 176/92 H 173/88 H Pulse Oximetry 100 100 100 Oxygen Delivery Room Air Room Air Room Air Fraction of Inspired Oxygen 11/23/23 11:49 11/23/23 11:59 11/23/23 12:09 Temperature Pulse Rate 79 82 77 Respiratory Rate 18 22 H 19 Blood Pressure 174/95 H 175/90 H 177/80 H Pulse Oximetry 100 100 100 Oxygen Delivery Room Air Room Air Room Air Fraction of Inspired Oxygen 11/23/23 12:19 11/23/23 13:04 11/23/23 14:00 Temperature 98 F 98 F Pulse Rate 67 76 89 Respiratory Rate 19 18 18 Blood Pressure 164/81 H 150/76 H 150/61 H Pulse Oximetry 100 100 99 Oxygen Delivery Room Air Fraction of Inspired Oxygen 11/23/23 16:03 Temperature Pulse Rate 84 Respiratory Rate Blood Pressure Pulse Oximetry Oxygen Delivery Fraction of Inspired Oxygen Intake/Output Intake/Output: Intake & Output 11/20/23 11/21/23 11/22/23 11/23/23 23:59 23:59 23:59 23:59 Intake Total 2100 1270 2235 Output Total 750 1500 Balance 2100 520 735 Meds/Results Medications: Active Medications Generic Name Dose Route Start Last Admin Trade Name Freq PRN Reason Stop Dose Admin Acetaminophen 325 mg 11/22/23 01:29 Acetaminophen 325 Mg Tablet PO Q6H PRN Pain, Mild 1-3 Apixaban 10 mg 11/23/23 21:00 Apixaban 5 Mg Tablet PO 11/30/23 09:01 Q12HR LETICIA Artificial Tears 1 drop 11/22/23 01:29 Artificial Tears Ophth Soln 15 Ml Bottle EACH EYE Q2-4H PRN Dry Eye(S) Calcitriol 0.5 mcg 11/22/23 09:00 11/23/23 08:28 Calcitriol 0.25 Mcg Capsule PO 12/22/23 08:59 Not Given DAILY LETICIA Calcium Carbonate 500 mg 11/22/23 09:00 11/23/23 08:28 Calcium Carbonate (
[2023-11-23] MEDS: CEFDINIR 300 MG CAPSULE PO (20:53)
[2023-11-23] MEDS: APIXABAN 5 MG TABLET 10 MG PO (20:53)
[2023-11-24] VITALS (9 sets, daily range): BP systolic 140–145; BP diastolic 70–77; PULSE 69–95; RESP 16–18; TEMP 36.2–36.8; O2SAT 96–100
[2023-11-24] MEDS: SODIUM CHLORIDE 0.9% IV 1,000 ML 100 ML IV CONT (05:16)
[2023-11-24] MEDS: LEVOTHYROXINE SODIUM 25 MCG TABLET PO (05:17)
[2023-11-24] MEDS: SUCRALFATE SUSP 100 MG/ML 10 ML UDC 1000 MG PO ×4 (05:19→21:01)
[2023-11-24 07:11] LABS: Hematocrit 29.8 % (37.0-47.0); Hemoglobin 9.4 g/dL (12.0-15.0); Mean Corpuscular HGB Conc 31.5 g/dl (32-36); Mean Corpuscular Hemoglobin 29.2 pg (26-34); Mean Corpuscular Volume 92.5 fl (80-100); Mean Platelet Volume 9.1 fl (7.4-10.4); Platelet Count Result 212 k/mm3 (150-375); Red Blood Count 3.22 M/mm3 (4.2-5.4); Red Cell Distribution Width 13.4 % (11.5-14.5); White Blood Count 6.4 K/mm3 (4.5-10.0)
[2023-11-24 07:21] LABS: Alanine Aminotransferase 18 U/L (6-35); Alkaline Phosphatase 105 U/L (38-126); Anion Gap 10 mmol/L (4-12); Aspartate Amino Transferase 35 U/L (14-36); Bilirubin,Total 0.5 mg/dL (0.2-1.3); Blood Urea Nitrogen 19 mg/dL (7-17); Calcium 8.5 mg/dL (8.4-10.2); Carbon Dioxide 18 mmol/L (22-30); Chloride 114 mmol/L (98-107); Estimated CRCL calculation 23 ml/min; Estimated Glomerular Filt Rate 25; Glucose 96 mg/dL (65-110); Potassium 4.1 mmol/L (3.4-5.0); Sodium 142 mmol/L (137-145)
[2023-11-24] MEDS: PANTOPRAZOLE SODIUM IV 40 MG VIAL IV PUSH (09:32)
[2023-11-24] MEDS: calcitrioL 0.25 MCG CAPSULE 0.5 MCG PO (09:33)
[2023-11-24] MEDS: ACIDOPHILUS/BULGARICUS CHEWABLE TABLET 1 TABLET PO ×4 (09:33→20:59)
[2023-11-24] MEDS: CALCIUM CARBONATE (OSCAL) 500 MG TABLET PO (09:33)
[2023-11-24] MEDS: LORATADINE 10 MG TABLET PO (09:34)
[2023-11-24] MEDS: FAMOTIDINE 20 MG TABLET PO (09:34)
[2023-11-24] MEDS: dilTIAZem HCL 30 MG TABLET PO ×2 (09:34→21:00)
--- NOTE | 2023-11-24 09:40 | PC.NURSE ---
pt's daughter, NAEEM, who is an RN, has concerns about pt taking blood thinner with having an ulcer, she did not want me to administer the med until she has a chance to talk to
--- NOTE | 2023-11-24 10:55 | WPDANESPN ---
Anes - Prog Note Post-Op Date/Time: 11/24/23 10:55 Cardiovascular status: normal Respiratory status: normal Airway patency: baseline Mental status: baseline Post-Op hydration status: normal Vital Signs: Last Vital Signs Temp 36.8 C 11/24/23 06:00 Pulse 72 11/24/23 06:00 Resp 18 11/24/23 06:00 BP 140/73 11/24/23 06:00 Pulse Ox 96 11/24/23 06:00 O2 Del Method Room Air 11/23/23 20:00 FiO2 21 11/22/23 20:30 Pain Score (VAS): 03/25 I/O: Intake & Output 11/23/23 11/24/23 11/24/23 23:59 07:59 15:59 Intake Total 910 991.7 Output Total 700 200 Balance 210 791.7 Laboratory Tests 11/24/23 06:58 11/24/23 06:58 11/24/23 06:58 WBC 6.4 RBC 3.22 L Hgb 9.4 L Hct 29.8 L MCV 92.5 MCH 29.2 MCHC 31.5 L RDW 13.4 Plt Count 212 MPV 9.1 Sodium 142 Potassium 4.1 Chloride 114 H Carbon Dioxide 18 L Anion Gap 10 BUN 19 H Creatinine 1.90 H Estim Creat Clear Calc 23 Estimated GFR 25 L Glucose 96 Calcium 8.5 Total Bilirubin 0.5 AST 35 ALT 18 Alkaline Phosphatase 105 Total Protein 6.0 L Albumin 3.0 L Post-procedural complaints: none Patient Feedback: Patient satisfied with anesthetic care.
[2023-11-24] MEDS: FERROUS SULFATE 325 MG TABLET DR PO (12:45)
[2023-11-24] MEDS: APIXABAN 5 MG TABLET 10 MG PO ×2 (12:45→21:00)
--- NOTE | 2023-11-24 13:44 | P.PNIM_ITS ---
Progress Note: A&P Assessment and Plan (1) Pulmonary embolism: Code(s): I26.99 - Other pulmonary embolism without acute cor pulmonale Status: Acute Assessment and Plan: * CTA showing left sub segmental branches suggestive pulmonary embolism * On full-dose Lovenox to dysphagia * Will transition to oral Eliquis when tolerating oral intake * GI/family requesting LE dopplers although on AC and pulses 2+ Bilateral, no edema, pain or erythema and will not change treatment plan * ECHO pending to R/O RT heart strain/afib however she is 98% on RA and denies SOB 11/23/2023: * Echo no HR or shunting LVEF >70 * dopplers negative * Transition to Eliquis post EGD recommend 3 to 6 month treatment 11/24/23: * Transitioned to Eliquis (2) Dysphagia: Code(s): R13.10 - Dysphagia, unspecified Status: Acute Assessment and Plan: * GI consulted * HX of esophageal strictures with dilation 2018 * Speech eval * NPO * Plan for EGD tomorrow at noon 11/23/23: * Chronic Gastric ulcer * PPI/Carafate/Pepcid * Advance to full liquid 11/24/23 * advanced to soft diet and tolerating * PPI changed to PO BID (3) UTI (urinary tract infection): Code(s): N39.0 - Urinary tract infection, site not specified Status: Acute Assessment and Plan: * Urine cultures pending * Continue IV hydration. * Rocephin IV pending cultures 11/23/23: * Transition to PO Cefdinir Culture did not grow anything but UA suspicious of UTI will still treat * Nitrate +, Leukocytes +, bacteria, WBC 11/24/23; * continue current treatment Cefdinir renally dosed (4) CKD (chronic kidney disease): Code(s): N18.9 - Chronic kidney disease, unspecified Status: Acute Assessment and Plan: * Creatinine at baseline * Gentle IV hydration. * nephrology consulted * Avoid nephrotoxic drugs. * Monitor antihypertensive drug therapy. * Avoid NSAIDs. * Routine CMP monitoring GFR. * Monitor electrolytes especially potassium. * Antibiotic doses depending on creatinine clearance. * Pharmacy does medications. * Routine follow-up with Nephrology as an outpatient. (5) Anxiety: Code(s): F41.9 - Anxiety disorder, unspecified Status: Acute Assessment and Plan: * Patient normally takes Xanax p.o. * Will start on IV Ativan transition back to home medications when tolerating p.o. 11/23/2023: * Would recommend another anxiety medication such as sertraline Plan Code status: Full code per patient DVT prophylaxis: Eliquis Stress ulcer prophylaxis: Protonix 40 daily PT/OT notes: PT/OT pending Disposition: Patient continues admission to the medical unit is currently being treated for urinary tract infection, pulmonary emboli and dysphagia chronic gastric ulcer found will start advancing diet as tolerated. PT/OT pending for recs but will likely return home would recommend with home health. Diet advanced and tolerating can likely discharge to home tomorrow. Time Spent
--- NOTE | 2023-11-24 13:44 | PM.IMPN ---
Progress Note: A&P Assessment and Plan (1) Pulmonary embolism: Code(s): I26.99 - Other pulmonary embolism without acute cor pulmonale Status: Acute Assessment and Plan: CTA showing left sub segmental branches suggestive pulmonary embolism On full-dose Lovenox to dysphagia Will transition to oral Eliquis when tolerating oral intake GI/family requesting LE dopplers although on AC and pulses 2+ Bilateral, no edema, pain or erythema and will not change treatment plan ECHO pending to R/O RT heart strain/afib however she is 98% on RA and denies SOB 11/23/2023: Echo no HR or shunting LVEF >70 dopplers negative Transition to Eliquis post EGD recommend 3 to 6 month treatment 11/24/23: Transitioned to Eliquis (2) Dysphagia: Code(s): R13.10 - Dysphagia, unspecified Status: Acute Assessment and Plan: GI consulted HX of esophageal strictures with dilation 2018 Speech eval NPO Plan for EGD tomorrow at noon 11/23/23: Chronic Gastric ulcer PPI/Carafate/Pepcid Advance to full liquid 11/24/23 advanced to soft diet and tolerating PPI changed to PO BID (3) UTI (urinary tract infection): Code(s): N39.0 - Urinary tract infection, site not specified Status: Acute Assessment and Plan: Urine cultures pending Continue IV hydration. Rocephin IV pending cultures 11/23/23: Transition to PO Cefdinir Culture did not grow anything but UA suspicious of UTI will still treat Nitrate +, Leukocytes +, bacteria, WBC 11/24/23; continue current treatment Cefdinir renally dosed (4) CKD (chronic kidney disease): Code(s): N18.9 - Chronic kidney disease, unspecified Status: Acute Assessment and Plan: Creatinine at baseline Gentle IV hydration. nephrology consulted Avoid nephrotoxic drugs. Monitor antihypertensive drug therapy. Avoid NSAIDs. Routine CMP monitoring GFR. Monitor electrolytes especially potassium. Antibiotic doses depending on creatinine clearance. Pharmacy does medications. Routine follow-up with Nephrology as an outpatient. (5) Anxiety: Code(s): F41.9 - Anxiety disorder, unspecified Status: Acute Assessment and Plan: Patient normally takes Xanax p.o. Will start on IV Ativan transition back to home medications when tolerating p.o. 11/23/2023: Would recommend another anxiety medication such as sertraline Plan Code status: Full code per patient DVT prophylaxis: Eliquis Stress ulcer prophylaxis: Protonix 40 daily PT/OT notes: PT/OT pending Disposition: Patient continues admission to the medical unit is currently being treated for urinary tract infection, pulmonary emboli and dysphagia chronic gastric ulcer found will start advancing diet as tolerated. PT/OT pending for recs but will likely return home would recommend with home health. Diet advanced and tolerating can likely discharge to home tomorrow. Time Spent With Patient Time with patient: 15 - 25 minutes Subjective Date/time seen: 11/24/23 13:44 Interval history: Patient 83-year-old female who continues admission for a pulmonary embolism, UTI and possible esophageal stricture. 11/24/2023: Patient doing well today, tolerating oral intake reports improvement to her N/V. Denies any CP, SOB, or ABD pain. Review of Systems Review of Systems: All systems reviewed & are unremarkable except as noted in HPI and below Exam Narrative: Physical Exam: GENERAL: Alert and oriented x 3. No acute distress. Daughter at beside EYES: PERRLA. HEENT: Moist mucous membranes. LUNGS: Clear to auscultation bilaterally. No accessory muscle use. CARDIOVASCULAR: Regular rate and rhythm. No murmur. S1-S2 ABDOMEN: Soft, non tenderness and non-distended. No palpable masses. EXTREMITIES: No edema. Non-tender SKIN: No rashes or lesions. Skin warm,
--- NOTE | 2023-11-24 14:13 | WPDGIPROGNO ---
Progress Note: A&P Assessment and Plan (1) Pulmonary embolism: Code(s): I26.99 - Other pulmonary embolism without acute cor pulmonale Status: Acute (2) Dysphagia: Code(s): R13.10 - Dysphagia, unspecified Status: Acute (3) Hx of gastric bypass: Code(s): Z98.84 - Bariatric surgery status Status: Acute (4) Gastric ulcer: Code(s): K25.9 - Gastric ulcer, unspecified as acute or chronic, without hemorrhage or perforation Status: Acute Plan Patient with dysphagia of unclear origin, however today she is able to tolerate liquids and solids with no complaints. Will keep observing her as an outpatient. In addition, patient has an ulcer in the anastomotic region between stomach and jejunum. She will be discharged tomorrow with pantoprazole 40 mg q.d. and sucralfate 1 g every 8 hours. Regarding the small, incidental pulmonary embolus, we suggest the final opinion of a technical staff engineer, especially to decide the duration of anticoagulation in the future, given the fact that there is no deep venous thrombosis according to the venous doppler study of the EE and being an elderly patient with an active ulcer, the duration of anticoagulation becomes an important issue. Time Spent With Patient Time with patient: less than 15 minutes Subjective Date/time seen: 11/24/23 14:13 Interval history: The patient is doing well, tolerating a bland diet, not having further dysphagia or vomiting. Review of Systems Review of Systems: All systems reviewed & are unremarkable except as noted in HPI and below Objective Data Vital Signs Vital Signs: Vital Signs - 24 hr 11/23/23 16:03 11/23/23 20:00 11/23/23 22:00 Temperature 98.6 F Pulse Rate 84 91 Respiratory Rate 18 Blood Pressure 149/94 H Pulse Oximetry 98 Oxygen Delivery Room Air 11/23/23 20:00 11/24/23 00:00 11/24/23 04:00 Temperature Pulse Rate 90 73 69 Respiratory Rate Blood Pressure Pulse Oximetry Oxygen Delivery 11/24/23 06:00 11/24/23 08:10 Temperature 98.2 F Pulse Rate 72 Respiratory Rate 18 Blood Pressure 140/73 Pulse Oximetry 96 Oxygen Delivery Room Air Intake/Output Intake/Output: Intake & Output 11/21/23 11/22/23 11/23/23 11/24/23 23:59 23:59 23:59 23:59 Intake Total 2100 1270 2235 1951.7 Output Total 750 1500 200 Balance 2100 445 118 8613.7 Meds/Results Medications: Active Medications Generic Name Dose Route Start Last Admin Trade Name Freq PRN Reason Stop Dose Admin Acetaminophen 325 mg 11/22/23 01:29 Acetaminophen 325 Mg Tablet PO Q6H PRN Pain, Mild 1-3 Apixaban 10 mg 11/23/23 21:00 11/24/23 12:45 Apixaban 5 Mg Tablet PO 11/30/23 09:01 10 mg Q12HR LETICIA Administration Artificial Tears 1 drop 11/22/23 01:29 Artificial Tears Ophth Soln 15 Ml Bottle EACH EYE Q2-4H PRN Dry Eye(S) Calcitriol 0.5 mcg 11/22/23 09:00 11/24/23 09:33 Calcitriol 0.25 Mcg Capsule PO 12/22/23 08:59 0.5 mcg DAILY LETICIA Administration Calcium Carbonate 500 mg 11/22/23 09:00 11/24/23 09:33 Calcium Carbonate (Oscal) 500 Mg Tablet PO 500 mg DAILY LETICIA Administration Cefdinir 300 mg 11/23/23 21:00 11/23/23 20:53 Cefdinir 300 Mg Capsule PO 11/27/23 21:01 300 mg DAILY@2100 LETICIA Administration Diltiazem HCl 30 mg 11/22/23 09:00 11/24/23 09:34 Diltiazem Hcl 30 Mg Tablet PO 30 mg Q12HR LETICIA Administration Docusate Sodium 100 mg 11/22/23 01:29 Docusate Sodium 100 Mg Capsule PO TID PRN Constipation Famotidine 20 mg 11/22/23 09:00 11/24/23 09:34 Famotidine 20 Mg Tablet PO 20 mg DAILY LETICIA Administration Ferrous Sulfate 325 mg 11/22/23 12:00 11/24/23 12:45 Ferrous Sulfate [address] PO 325 mg DAILY@1200 [facility] Administration Fluticasone Propionate 2 spray 11/22/23 01:29 Fluticasone Propionate 0.05% Na Spr 16 Gm Btl (*Bkc) NASAL DAILY PRN nasal congestio
[2023-11-24] MEDS: CEFDINIR 300 MG CAPSULE PO (21:00)
[2023-11-24] MEDS: PANTOPRAZOLE 40 MG TABLET PO (21:01)
[2023-11-24] MEDS: LORazepam INJ (*CRX) 2 MG/ML VIAL 0.5 MG IV PUSH (21:03)
[2023-11-25] VITALS: PULSE 106
[2023-11-25 04:00] VITALS: PULSE 64
[2023-11-25 05:36] LABS: Hematocrit 30.1 % (37.0-47.0); Hemoglobin 9.6 g/dL (12.0-15.0); Mean Corpuscular HGB Conc 31.9 g/dl (32-36); Mean Corpuscular Hemoglobin 29.5 pg (26-34); Mean Corpuscular Volume 92.6 fl (80-100); Mean Platelet Volume 8.7 fl (7.4-10.4); Platelet Count Result 200 k/mm3 (150-375); Red Blood Count 3.25 M/mm3 (4.2-5.4); Red Cell Distribution Width 13.3 % (11.5-14.5)
[2023-11-25 05:53] VITALS: BP 141/82; PULSE 93; RESP 18; TEMP 36.6; O2SAT 98
[2023-11-25 05:58] LABS: Alanine Aminotransferase 19 U/L (6-35); Albumin Level 3.1 g/dL (3.5-5.1); Alkaline Phosphatase 109 U/L (38-126); Anion Gap 6 mmol/L (4-12); Aspartate Amino Transferase 40 U/L (14-36); Bilirubin,Total 0.5 mg/dL (0.2-1.3); Blood Urea Nitrogen 16 mg/dL (7-17); Calcium 8.7 mg/dL (8.4-10.2); Carbon Dioxide 21 mmol/L (22-30); Chloride 113 mmol/L (98-107); Estimated CRCL calculation 23 ml/min; Estimated Glomerular Filt Rate 25; Glucose 99 mg/dL (65-110); Potassium 4.3 mmol/L (3.4-5.0); Sodium 140 mmol/L (137-145)
[2023-11-25] MEDS: LEVOTHYROXINE SODIUM 25 MCG TABLET PO (06:32)
[2023-11-25] MEDS: SUCRALFATE SUSP 100 MG/ML 10 ML UDC 1000 MG PO ×2 (06:32→11:20)
[2023-11-25 08:00] VITALS: PULSE 73
--- NOTE | 2023-11-25 08:20 | WPDGIPROGNO ---
Progress Note: A&P Assessment and Plan (1) Gastric ulcer: Code(s): K25.9 - Gastric ulcer, unspecified as acute or chronic, without hemorrhage or perforation Status: Acute (2) Pulmonary embolism: Code(s): I26.99 - Other pulmonary embolism without acute cor pulmonale Status: Acute (3) Dysphagia: Code(s): R13.10 - Dysphagia, unspecified Status: Acute Plan The patient's main problem at admission was dysphagia, however endoscopy did not reveal stenosis or other lesions. Biopsies to rule out eosinophilic esophagitis still pending. Possibility of esophageal manometry was discussed with family and will check As an outpatient. The patient can be discharged today with pantoprazole 40 mg q.d. and sucralfate 1 g every 8 hours to continue indefinitely for the treatment of anastomotic ulcer found during endoscopy. I would like to see her in clinic in 4 weeks. Further management of pulmonary embolus found during admission to be discussed with Pulmonary, especially regarding the duration of anticoagulation. Time Spent With Patient Time with patient: less than 15 minutes Subjective Date/time seen: 11/25/23 08:20 Interval history: No changes from baseline, patient had a good night. Review of Systems Review of Systems: All systems reviewed & are unremarkable except as noted in HPI and below Objective Data Vital Signs Vital Signs: Vital Signs - 24 hr 11/24/23 14:00 11/24/23 12:00 11/24/23 15:56 Temperature 97.8 F Pulse Rate 85 75 Respiratory Rate 18 Blood Pressure 140/77 Pulse Oximetry 100 Oxygen Delivery Room Air 11/24/23 16:00 11/24/23 21:23 11/24/23 20:00 Temperature 97.2 F L Pulse Rate 95 74 88 Respiratory Rate 16 Blood Pressure 145/70 H Pulse Oximetry 99 Oxygen Delivery 11/24/23 20:00 11/25/23 00:00 11/25/23 04:00 Temperature Pulse Rate 106 H 64 Respiratory Rate Blood Pressure Pulse Oximetry 99 Oxygen Delivery Room Air 11/25/23 05:53 Temperature 97.8 F Pulse Rate 93 Respiratory Rate 18 Blood Pressure 141/82 H Pulse Oximetry 98 Oxygen Delivery Intake/Output Intake/Output: Intake & Output 11/22/23 11/23/23 11/24/23 11/25/23 23:59 23:59 23:59 23:59 Intake Total 1270 2235 3041.7 300 Output Total 750 1500 200 Balance 385 709 4868.7 300 Meds/Results Medications: Active Medications Generic Name Dose Route Start Last Admin Trade Name Freq PRN Reason Stop Dose Admin Acetaminophen 325 mg 11/22/23 01:29 Acetaminophen 325 Mg Tablet PO Q6H PRN Pain, Mild 1-3 Apixaban 10 mg 11/23/23 21:00 11/24/23 21:00 Apixaban 5 Mg Tablet PO 11/30/23 09:01 10 mg Q12HR LETICIA Administration Artificial Tears 1 drop 11/22/23 01:29 Artificial Tears Ophth Soln 15 Ml Bottle EACH EYE Q2-4H PRN Dry Eye(S) Calcitriol 0.5 mcg 11/22/23 09:00 11/24/23 09:33 Calcitriol 0.25 Mcg Capsule PO 12/22/23 08:59 0.5 mcg DAILY LETICIA Administration Calcium Carbonate 500 mg 11/22/23 09:00 11/24/23 09:33 Calcium Carbonate (Oscal) 500 Mg Tablet PO 500 mg DAILY LETICIA Administration Cefdinir 300 mg 11/23/23 21:00 11/24/23 21:00 Cefdinir 300 Mg Capsule PO 11/27/23 21:01 300 mg DAILY@2100 LETICIA Administration Diltiazem HCl 30 mg 11/22/23 09:00 11/24/23 21:00 Diltiazem Hcl 30 Mg Tablet PO 30 mg Q12HR LETICIA Administration Docusate Sodium 100 mg 11/22/23 01:29 Docusate Sodium 100 Mg Capsule PO TID PRN Constipation Famotidine 20 mg 11/22/23 09:00 11/24/23 09:34 Famotidine 20 Mg Tablet PO 20 mg DAILY LETICIA Administration Ferrous Sulfate 325 mg 11/22/23 12:00 11/24/23 12:45 Ferrous Sulfate [address] PO 325 mg DAILY@1200 [facility] Administration Fluticasone Propionate 2 spray 11/22/23 01:29 Fluticasone Propionate 0.05% Na Spr 16 Gm Btl (*Bkc) NASAL DAILY PRN nasal congestion Lactobacillus Acidophilus 1 tablet 11/22/23 1
[2023-11-25] MEDS: FAMOTIDINE 20 MG TABLET PO (09:04)
[2023-11-25] MEDS: PANTOPRAZOLE 40 MG TABLET PO (09:04)
[2023-11-25] MEDS: dilTIAZem HCL 30 MG TABLET PO (09:04)
[2023-11-25] MEDS: LORATADINE 10 MG TABLET PO (09:04)
[2023-11-25] MEDS: CALCIUM CARBONATE (OSCAL) 500 MG TABLET PO (09:04)
[2023-11-25] MEDS: ACIDOPHILUS/BULGARICUS CHEWABLE TABLET 1 TABLET PO (09:05)
[2023-11-25] MEDS: calcitrioL 0.25 MCG CAPSULE 0.5 MCG PO (09:05)
[2023-11-25] MEDS: APIXABAN 5 MG TABLET 10 MG PO (09:05)
[2023-11-25 12:00] VITALS: PULSE 89
--- NOTE | 2023-11-25 12:42 | PM.DS ---
DS: Admitting Diagnosis Discharge Date 11/25/2023 Admitting Diagnosis Pulmonary Embolism/dysphasia/UTI DS: Discharge Diagnosis Discharge Diagnosis (1) Pulmonary embolism: Code(s): I26.99 - Other pulmonary embolism without acute cor pulmonale Status: Acute (2) Dysphagia: Code(s): R13.10 - Dysphagia, unspecified Status: Acute (3) UTI (urinary tract infection): Code(s): N39.0 - Urinary tract infection, site not specified Status: Acute (4) CKD (chronic kidney disease): Code(s): N18.9 - Chronic kidney disease, unspecified Status: Acute (5) Anxiety: Code(s): F41.9 - Anxiety disorder, unspecified Status: Acute (6) Gastric ulcer: Code(s): K25.9 - Gastric ulcer, unspecified as acute or chronic, without hemorrhage or perforation Status: Acute DS: Summary Hospital Course Reason for hospitalization: Pulmonary Embolism/UTI/Gastric Ulcer Hospital Course: Patient was an 83-year-old female who presented to the emergency department with nausea, vomiting, difficulty swallowing, abdominal pain and chest pain, and generalized weakness patient has known past medical history GI strictures with dilation, adrenal insufficiency, anxiety, pacemaker and CKD. initial findings in the emergency department did show a urinary tract infection as well as pulmonary emboli noted on the CTA and patient continued to choke on any oral intake. CT abdomen that was completed showed a small sliding hiatal hernia and previous gastric bypass procedure otherwise no other acute findings. Patient was admitted to the medical unit for further evaluation and consult to GI for possible GI stricture. patient had been initially started on Lovenox 1mg per kg while she remained NPO for GI consult and possible EGD. I initially placed a speech evaluation however due to patient history of strictures and did not appear to be aspirating evaluation was cancelled. I placed patient on IV Fluids, PPI, and Rocephin for UTI. She was taken for EGD which had shown a chronic Gastric Ulcer with ischemia but no active bleed at the patient Gastro jejunal anastomosis from previous bypass surgery. Patient was then started Carafate and continue PPI and was able to tolerate oral intake without difficulty following initiation of the Carafate. Patient was also placed on Ativan PRN for severe anxiety typically takes xanax at home while npo. Patient did have to be sedated and intubated prior to procedure but overall tolerated the procedure well. Once patient was tolerating oral intake I transitioned her to Eliquis PO for PE with loading dose x7 days it was recommended patient only remain on anticoagulation for 3 months due to high risk of GI bleed, PE was located at the subsegmental branch with no filling defects the main pulmonary artery. Dopplers were also completed showed no DVT and echocardiogram with no significant finding. patient was given IV fluids post CTA to protect kidneys she does a known history of CKD creatinine was at baseline at time of discharge she was having good urinary output with no complaints. although patient's urine did not grow culture still treated with cefdinir urine showed nitrate positive urinary complaints. Patient was then discharged with family plan will be follow-up with GI in 4 weeks she will continue with the pantoprazole and Carafate. Prescription was sent in for Eliquis 30 day supply with loading does patient started reported primary care physician will follow up after. patient in no acute distress time of discharge tolerating all oral intake and stated she had overall improvement feeling well with no nausea vomiting or difficulty in swallowing. Status at Discharge Functional status at discharge: uses cane/walker Time Spent with Patient Time attestation: Total time spent providing and/or coordinating discharge services: Time spent: Greater than 30 minutes Exam Narrative:
--- NOTE | 2023-11-25 15:23 | PC.NURSE ---
pt's daughter called to clarify antibiotic dose and instructions, I placed a call to Queenie Smith to confirm, I then called [facility] in [place] with dosing and constructions, Daughter informed that script will be available
== END 2023-11-25 13:21 | disposition home health service (06) | DRG 380 ==
LOC: ANHED 22:27 → ANH2MED 22:57
PROVIDERS: Emergency Medicine; Internal Medicine Gastroenterology; Admitting Provider Internal Medicine; Emergency Provider Physician Assistant; PCP Internal Medicine; Visit Provider Nurse Practitioner Family
PROC: 0DJ08ZZ Inspection of Upper Intestinal Tract, Via Natural or Artificial Opening Endoscopic (ICD-10-PCS; CPT 43235; principal; 2023-11-23 10:00)
DX: K28.7 Chronic gastrojejunal ulcer without hemorrhage or perforation (principal); I26.99 Other pulmonary embolism without acute cor pulmonale; N39.0 Urinary tract infection, site not specified; I48.20 Chronic atrial fibrillation, unspecified; E27.40 Unspecified adrenocortical insufficiency; N18.32 Chronic kidney disease, stage 3b; E03.9 Hypothyroidism, unspecified; K22.2 Esophageal obstruction; K21.9 Gastro-esophageal reflux disease without esophagitis; R13.10 Dysphagia, unspecified; R62.7 Adult failure to thrive; F41.9 Anxiety disorder, unspecified; F32.A Depression, unspecified; Z20.822 Contact with and (suspected) exposure to COVID-19; Z98.84 Bariatric surgery status; Z95.0 Presence of cardiac pacemaker
CPT/HCPCS: 36415; 71046; 71275; 74176; 80053; 81001; 83690; 83735; 83880; 84484; 85025; 85027; 85380; 85610; 85730; 87086; 87637; 88305; 93005; 93970; 96361; 96375; 97110; 97116; 97161; 97530; 99285; A9270; C8929; J0330; J0696; J1650; J2003; J2060; J2405; J2470; J2704; J3010; J7030; J7120; Q9957; Q9967

== ENCOUNTER 2023-12-13 14:22 | Outpatient (CLI) | payer MEDICARE, MEDICAID, SELFPAY ==
[2023-12-13 14:50] LABS: Add Urine Microscopic? YES; Appearance Urine Cloudy (Clear); Bacteria Urine 4+ /hpf; Bilirubin Urine Negative (Negative); Blood Urine Negative (Negative); Color Urine Yellow (Yellow); Glucose Urine UA Negative (Negative); Ketones Urine Negative (Negative); Leukocyte Esterase Ur 2+ LEU/UL (Negative); Nitrate Urine Positive (Negative); Non Pathogenic Casts 0-2; Protein Urine 1+ mg/dL (Negative); RBC Urine 0-2 /hpf (0-2); Specific Grav Ur 1.009 (1.001-1.035); Squamous Epithelial Cell Urine Few /hpf (Few); Urobilinogen Urine 0.2 mg/dL (<2.0); WBC Urine 21-50 /hpf (0-3); pH Urine 5.5 (5.0-9.0)
== END 2023-12-13 14:23 | disposition home or self-care (01) ==
PROVIDERS: PCP Internal Medicine; Visit Provider Internal Medicine
DX: R30.0 Dysuria (principal)
CPT/HCPCS: 81001; 87077; 87086; 87186

== ENCOUNTER 2024-02-27 00:33 | Day surgery (SDC) | payer MEDICARE, MEDICAID, SELFPAY ==
[2024-02-08 11:52] VITALS: BMI 34.5
--- NOTE | 2024-02-22 14:40 | PC.NURSE ---
Spoke with __PATIENT regarding medication ELIQUIS__. _PATIENT verbalizes understanding that the last dose is to be taken on _02/23/2024___ and the Endoscopist will instruct them when to restart after the procedure.
--- NOTE | 2024-02-27 11:58 | P.HP_ITS ---
H&P: HPI History of Present Illness Date/Time: 02/27/24 11:58 Chief Complaint: History of peptic ulcer. Narrative: The patient was scoped in November 2023 for dysphagia. There were no abnormalities in the esophagus, and biopsies ruled out eosinophilic esophagitis. However, there was incidental finding in the jejunal side of the gastric bypass anastomosis. The she was prescribed pantoprazole and is here for follow-up EGD. I saw her in clinic on 01/23/2024 and she was doing well, no further dysphagia episodes and no abdominal pain. [facility] Past Medical History Medical History Blood clot in vein Weight loss Viral syndrome Other fatigue Dietary counseling and surveillance (04/06/16) Dermatitis Autonomic dysfunction End stage renal disease Adrenal insufficiency Dysphagia Depression Hypothyroidism Surgical History Surgical History S/P placement of cardiac pacemaker Family History Family History Sibling Depression Family history of diabetes mellitus in first degree relative Family history of heart disease in male family member before age 55 Family history of arthritis Patient's brother is Father Carcinoma of colon Family history of congestive heart failure Family history of heart disease in male family member before age 55 Mother Family history of congestive heart failure Family history of heart disease in male family member before age 55 Sibling Heart disease Other Diabetes mellitus Family history of allergic disorder Hypertension Social History Social History Smoking status: Never smoker Second hand tobacco smoke exposure: No Alcohol intake: never Substance use: never Substance use type: does not use Do You Feel Safe in your Home?: Yes Lack of Transportation: No Lack of Food: Never True Current Housing: I Have Housing Concerned About Future Housing: No Difficulty Paying Gas/Electric Bills: No Difficulty Paying for Meds: No Currently Unemployed: No Education: Trade/Vocational Certificate Difficulty w/ Childcare or Family Care: No Living arrangements: alone Occupation/Education: retired Additional occupation/education comments: [employer] Gender identity (if verbalized by the patient): Female Spiritual care concerns: No Meds Home Medications and Allergies Home Medications ?Medication ?Instructions ?Recorded ?Confirmed ?Type acetaminophen 325 mg tablet 325 mg PO Q6H PRN Pain, Mild 12/21/18 02/08/24 History (Tylenol) calcium carbonate (Calcium 500) 500 mg PO DAILY 12/21/18 02/08/24 History cetirizine 10 mg capsule (Zyrtec) 10 mg PO DAILY 12/21/18 02/08/24 History cyanocobalamin (vitamin B-12) 2,000 mcg PO EVERY OTHER DAY 12/21/18 02/08/24 History 1,000 mcg capsule multivitamin (Multiple Vitamins 1 tablet PO EVERY OTHER DAY 12/21/18 02/08/24 History tablet) carboxymethyl 0.5 %-glycerin 1 1 drp EACH EYE DAILY Dry Eye(S) 09/25/20 02/08/24 History %-polysorb 80 0.5 %-PF eye dropperette (Refresh Optive John-3 (PF)) diltiazem HCl 60 mg 30 mg PO BID 09/25/20 02/08/24 History capsule,extended release 12 hr ferrous sulfate 325 mg (65 mg 325 mg PO DAILY 05/04/21 02/08/24 History iron) tablet docusate sodium 100 mg capsule 100 mg PO TID PRN Constipation 02/15/23 02/08/24 History (Stool Softener) vit C 250 mg-vit E 90 mg-zinc 40 1 tablet PO BID 02/15/23 02/08/24 History mg-copper 1 fb-[id number] capsule (PreserVision AREDS-2) levothyroxine 25 mcg tablet 25 mcg PO DAILY #90 tabs 06/09/23 02/08/24 Rx eszopiclone 2 mg tablet (Lunesta) 2 mg PO .HS PRN sleep #30 tabs 09/29/23 02/08/24 Rx calcitriol 0.5 mcg capsule See Rx Instructions .Route 12/01/23 02/08/24 Rx .COMPLEX #90 caps apixaban 5 mg tablet (Eliquis) 5 mg PO BID #60 tabs 12/13/23 02/08/24 Rx pantoprazole 40 mg tablet,delayed 40 mg PO DAILY #90 tabs 12/13/23 02/08/24 Rx release alprazolam 0.5 mg tablet 1 mg (2 x 0.5 mg) PO DAILY PRN 02/05/24 02/08/24 Rx anxiety; insomnia #60 tabs ergocalciferol (vitamin D2) 1,250 50,000 unit PO WEEKLY #12 caps 02/05/24 02/08/24 Rx mcg (50,000 unit) capsule (Vitamin D2) famotidine 20 mg tablet 20 mg PO DAILY #90 tabs 02/05/24 02/08/24 Rx fluticasone propionate 50 2 spray intranasal DAILY nasal 02/08/24 02/08/24 History mcg/actuation nasal congestion spray,suspension Allergies Allergy/AdvReac Type Severity Reaction Status Date / Time Penicillins Allergy Intermediate rash Verified 02/08/24 11:45 hydromorphone (From Dilaudid) AdvReac Intermediate Anxiety Verified 02/08/24 11:45 iohexol (From contrast - CT, AdvReac Other Verified 02/08/24 11:45 X-RAY) Exam Const: General: cooperative and healthy appearing Resp: Effort & Inspection: normal respiratory effort and able to speak in complete sentences Auscultation: clear to auscultation bilaterally Cardio: Rate: regular rate Rhythm: regular rhythm GI: Inspection: normal to inspection GI Palp: No No hepatosplenomegaly present Auscultation: normal bowel sounds Rectal Exam: deferred Skin: General skin exam: normal color Psych: Appearance: grossly normal Mental Status: mental status grossly normal Assessment and Plan Assessment and plan (1) Hx of gastric bypass: Code(s): Z98.84 - Bariatric surgery status Status: Acute (2) Gastric ulcer: Qualifiers: Gastric ulcer chronicity: chronic Qualified Code(s): K25.7 - Chronic gastric ulcer without hemorrhage or perforation Code(s): K25.9 - Gastric ulcer, unspecified as acute or chronic, without hemorrhage or perforation Status: Acute Assessment and Plan: The patient is deemed a good candidate for the procedure. Consent signed. Will proceed.
[2024-02-27 12:09] VITALS: BP 131/74; PULSE 80; RESP 21; TEMP 36.1; O2SAT 100
--- NOTE | 2024-02-27 12:37 | P.PNAN_ITS ---
Anes - Initial Pre Proc Eval Procedure: Operation Date: 02/27/24 14:00 Proposed Procedures p Esophagogastroduodenoscopy - Antonio Jones MD Date/Time: 02/27/24 12:37 Surgeon: Antonio Jones MD Pre Op Diagnosis: Gastric ulcer Patient Data Age: 83 Gender: F Height: 1.6 m Weight: 86.1 kg Last Vital Signs Temp 97 F L 02/27/24 12:09 Pulse 80 02/27/24 12:09 Resp 21 H 02/27/24 12:09 BP 131/74 02/27/24 12:09 Pulse Ox 100 02/27/24 12:09 O2 Del Method Room Air 02/27/24 12:09 Allergies Allergy/AdvReac Type Severity Reaction Status Date / Time Penicillins Allergy Intermediate rash Verified 02/27/24 12:08 hydromorphone (From Dilaudid) AdvReac Intermediate Anxiety Verified 02/27/24 12:08 iohexol (From contrast - CT, AdvReac Other Verified 02/27/24 12:08 X-RAY) Home Medications ?Medication ?Instructions ?Recorded ?Confirmed ?Type acetaminophen 325 mg tablet 325 mg PO Q6H PRN Pain, Mild 12/21/18 02/08/24 History (Tylenol) calcium carbonate (Calcium 500) 500 mg PO DAILY 12/21/18 02/08/24 History cetirizine 10 mg capsule (Zyrtec) 10 mg PO DAILY 12/21/18 02/08/24 History cyanocobalamin (vitamin B-12) 2,000 mcg PO EVERY OTHER DAY 12/21/18 02/08/24 History 1,000 mcg capsule multivitamin (Multiple Vitamins 1 tablet PO EVERY OTHER DAY 12/21/18 02/08/24 History tablet) carboxymethyl 0.5 %-glycerin 1 1 drp EACH EYE DAILY Dry Eye(S) 09/25/20 02/08/24 History %-polysorb 80 0.5 %-PF eye dropperette (Refresh Optive John-3 (PF)) diltiazem HCl 60 mg 30 mg PO BID 09/25/20 02/08/24 History capsule,extended release 12 hr ferrous sulfate 325 mg (65 mg 325 mg PO DAILY 05/04/21 02/08/24 History iron) tablet docusate sodium 100 mg capsule 100 mg PO TID PRN Constipation 02/15/23 02/08/24 History (Stool Softener) vit C 250 mg-vit E 90 mg-zinc 40 1 tablet PO BID 02/15/23 02/08/24 History mg-copper 1 [id number]-gxsdtr-ippvrz capsule (PreserVision AREDS-2) levothyroxine 25 mcg tablet 25 mcg PO DAILY #90 tabs 06/09/23 02/08/24 Rx eszopiclone 2 mg tablet (Lunesta) 2 mg PO .HS PRN sleep #30 tabs 09/29/23 02/08/24 Rx calcitriol 0.5 mcg capsule See Rx Instructions .Route 12/01/23 02/08/24 Rx .COMPLEX #90 caps apixaban 5 mg tablet (Eliquis) 5 mg PO BID #60 tabs 12/13/23 02/27/24 Rx pantoprazole 40 mg tablet,delayed 40 mg PO DAILY #90 tabs 12/13/23 02/08/24 Rx release alprazolam 0.5 mg tablet 1 mg (2 x 0.5 mg) PO DAILY PRN 02/05/24 02/27/24 Rx anxiety; insomnia #60 tabs ergocalciferol (vitamin D2) 1,250 50,000 unit PO WEEKLY #12 caps 02/05/24 02/08/24 Rx mcg (50,000 unit) capsule (Vitamin D2) famotidine 20 mg tablet 20 mg PO DAILY #90 tabs 02/05/24 02/08/24 Rx fluticasone propionate 50 2 spray intranasal DAILY nasal 02/08/24 02/08/24 History mcg/actuation nasal congestion spray,suspension Patient hx anesthesia problems: none Family hx anesthesia problems: none Results Review: All pre-operative results and documents have been reviewed as part of the pre- operative evaluation. [facility] Past Medical History Medical History Blood clot in vein Weight loss Viral syndrome Other fatigue Dietary counseling and surveillance (04/06/16) Dermatitis Autonomic dysfunction End stage renal disease Adrenal insufficiency Dysphagia Depression Hypothyroidism Surgical History Surgical History S/P placement of cardiac pacemaker Family History Family History Sibling Depression Family history of diabetes mellitus in first degree relative Family history of heart disease in male family member before age 55 Family history of arthritis Patient's brother is Father Carcinoma of colon Family history of congestive heart failure Family history of heart disease in male family member before age 55 Mother Family history of congestive heart failure Family history of heart disease in male family member before age 55 Sibling Heart disease Other Diabetes mellitus Family history of allergic disorder Hypertension Social History Social History Smoking status: Never smoker Second hand tobacco smoke exposure: No Alcohol intake: never Substance use: never Substance use type: does not use Do You Feel Safe in your Home?: Yes Lack of Transportation: No Lack of Food: Never True Current Housing: I Have Housing Concerned About Future Housing: No Difficulty Paying Gas/Electric Bills: No Difficulty Paying for Meds: No Currently Unemployed: No Education: Trade/Vocational Certificate Difficulty w/ Childcare or Family Care: No Living arrangements: alone Occupation/Education: retired Additional occupation/education comments: [employer] Gender identity (if verbalized by the patient): Female Spiritual care concerns: No Anes - Eval Final PreProcedure Day of Procedure 02/27/24 12:37 Patient weight: overweight Heart: other (Pacer) Lungs: clear to auscultation Airway: Mallampati scale class II Neurological: alert and oriented Last oral intake: >/= 8 hours ASA classification: IV Emergent: no Anesthetic plan: proceed Anesthesia type and monitoring: general GIVS Results Review: All pre-operative results and documents have been reviewed as part of the pre- operative evaluation. Informed Consent: The patient's anesthetic plan and its attendant risks and benefits were discussed with the patient/family/POA. Questions were solicited and answers provided to the satisfaction of the patient/family/POA.
[2024-02-27] MEDS: SODIUM CHLORIDE 0.9% IV 500 ML IV CONT (12:59)
[2024-02-27 13:06] VITALS: BP 117/69; PULSE 70; RESP 22; O2SAT 100
[2024-02-27 13:16] VITALS: BP 117/72; PULSE 71; RESP 20; O2SAT 100
[2024-02-27 13:26] VITALS: BP 129/76; PULSE 60; RESP 22; O2SAT 100
== END 2024-02-27 13:52 | disposition home or self-care (01) ==
PROVIDERS: PCP Internal Medicine; Visit Provider Internal Medicine Gastroenterology
PROC: 0DJ08ZZ Inspection of Upper Intestinal Tract, Via Natural or Artificial Opening Endoscopic (ICD-10-PCS; CPT 43235; principal; 2024-02-27 14:00)
DX: Z09 Encounter for follow-up examination after completed treatment for conditions other than malignant neoplasm (principal); E03.9 Hypothyroidism, unspecified; E27.40 Unspecified adrenocortical insufficiency; N18.6 End stage renal disease; F32.A Depression, unspecified; F45.8 Other somatoform disorders; Z79.01 Long term (current) use of anticoagulants; Z98.890 Other specified postprocedural states; Z95.0 Presence of cardiac pacemaker; Z98.84 Bariatric surgery status; Z87.11 Personal history of peptic ulcer disease; Z80.0 Family history of malignant neoplasm of digestive organs; Z82.49 Family history of ischemic heart disease and other diseases of the circulatory system
CPT/HCPCS: 43235; J2003; J2704; J7040; J7120

== ENCOUNTER 2024-03-06 13:15 | Outpatient (CLI) | payer MEDICARE, MEDICAID, SELFPAY ==
[2024-03-06 14:28] LABS: Albumin Level 3.9 g/dL (3.5-5.1); Anion Gap 12 mmol/L (4-12); Blood Urea Nitrogen 37 mg/dL (7-17); Calcium 8.9 mg/dL (8.4-10.2); Carbon Dioxide 21 mmol/L (22-30); Chloride 106 mmol/L (98-107); Estimated Glomerular Filt Rate 21; Glucose 94 mg/dL (65-110); Phosphorus 4.7 mg/dL (2.5-4.5); Potassium 4.7 mmol/L (3.4-5.0); Sodium 139 mmol/L (137-145)
[2024-03-06 14:30] LABS: Hematocrit 37.4 % (37.0-47.0); Hemoglobin 11.5 g/dL (12.0-15.0); Mean Corpuscular HGB Conc 30.7 g/dl (32-36); Mean Corpuscular Volume 94.2 fl (80-100); Mean Platelet Volume 9.6 fl (7.4-10.4); Platelet Count Result 259 k/mm3 (150-375); Red Blood Count 3.97 M/mm3 (4.2-5.4); Red Cell Distribution Width 13.7 % (11.5-14.5); White Blood Count 8.2 K/mm3 (4.5-10.0)
[2024-03-06 14:39] LABS: Parathyroid Intact 74.6 pg/mL (14.5-75.2)
[2024-03-06 15:30] LABS: Creatinine Urine 66.2 mg/dL; Total Protein Urine Random 19 mg/dL; Ur Ttl Prot Creatinine Ratio 0.29 mg/mg (0-0.20)
--- OUTSIDE RECORDS SUMMARY | 2024-03-08 01:02 | XMS_ITS | Clinical Summary ---
Author Organization [facility] [address] Address [address] [place] [address] Care Team Providers Care Night Shift Manager Name Role Phone Pilo Deras DO Primary Care Provider [phone] Allergies Active Allergy Reactions Criticality Noted Date Comments Iodine Other (See comments) Low 09/30/2018 Reaction: d, ??t CKD, ?? Penicillins Unknown,Rash Medium 05/31/2016 Medications eszopiclone (LUNESTA) 2 mg tablet take 1 tablet by oral route every day at bedtime 0 0 09/11/19 16 Active fluticasone (FLONASE) 50 mcg/actuation nasal spray inhale 1 spray by intranasal route every day in each nostril 0 spray 0 09/11/19 16 Active calcitRIOL (ROCALTROL) 0.5 mcg capsule take 1 capsule by oral route every day 0 0 09/11/19 16 Active ergocalciferol (VITAMIN D2) 50,000 unit capsule take 1 capsule by oral route every week 0 0 09/11/19 16 Active ALPRAZolam (XANAX) 0.5 mg tablet take 1 tablet by oral route every day 0 0 12/18/19 16 Active cetirizine (ZyrTEC) 10 mg tablet take 1 tablet by oral route every day 0 0 04/21/19 17 Active docusate sodium (COLACE) 100 mg capsule take 1 capsule by oral route every day at bedtime as needed 0 0 04/21/19 17 Active calcium carbonate (CALCIUM 500) 1,250 MG (500 mg of elemental calcium) tablet take 1 by Oral route once 0 0 04/21/19 17 Active multivitamin tablet tablet take 1 tablet by oral route every day with food 0 0 04/21/19 17 Active cyanocobalamin (VITAMIN B-12) 2,000 mcg tablet take one tablet once daily 0 0 04/21/19 17 Active acetaminophen (TYLENOL EXTRA STRENGTH) 500 mg tablet take 1 - 2 Tablet by ORAL route every 6 hours as needed 0 0 04/21/19 17 Active famotidine (PEPCID) 40 mg tablet 0.5 tablets (20 mg total) daily 07/18/19 20 Active levothyroxine (SYNTHROID) 25 mcg tablet Take 1 tablet (25 mcg total) by mouth daily 07/17/19 20 Active carboxymethylcellulo se (REFRESH LIQUIGEL) 1 % ophthalmic liquid gel drops Administer 1 drop into both eyes Active DULCOLAX, BISACODYL, ORAL Take by mouth Take 2 as needed Active ferrous sulfate 325 mg (65 mg of elemental iron) tablet Take 1 tablet (325 mg total) by mouth Active mecobalamin, vitamin B12, 1,000 mcg tablet,chewable Take by mouth 06/03/19 16 Active betamethasone valerate (VALISONE) 0.1 % cream Apply topically 2 (two) times a day APPLY TO AFFECTED AREA 09/01/19 22 Active dilTIAZem (CARDIZEM) 30 mg tabletIndications:Pa roxysmal supraventricular tachycardia (HCC) TAKE 1 TABLET BY MOUTH TWICE A DAY 180 tablet 3 12/28/19 24 Active apixaban (ELIQUIS) 5 mg tablet Take 1 tablet (5 mg total) by mouth 2 (two) times a day Active pantoprazole DR (PROTONIX) 40 mg EC tablet Take 1 tablet (40 mg total) by mouth daily Active sucralfate (CARAFATE) suspension 1 gram/10 mL Take by mouth 4 (four) times a day Active vit A/vit C/vit E/zinc/copper (PRESERVISION AREDS ORAL) Take by mouth Active Active Problems Problem Noted Date Diagnosed Date History of pulmonary embolism 12/28/2023 History of orthostatic hypotension 10/03/2022 Anxiety 10/03/2022 Weight gain 09/15/2021 Shortness of breath 09/05/2020 Idiopathic hypotension 12/02/2017 CKD (chronic kidney disease), stage III 11/17/19 17 Paroxysmal supraventricular tachycardia 12/18/19 16 Overview (05/19/2016): PSVT (paroxysmal supraventricular tachycardia) Pacemaker 12/18/2015 Overview (11/23/2020): [employer] Dual Pacemaker Dx; CHB DOI 10/23/[address] Sol[address] Nehemias remote home monitor Q3 mo, Office pacer checks Q1 yr. Lead revision 02/26/2016. Battery Advisory. Intermittent complete heart block (CMS/HCC) 05/2015 Overview (05/19/2016): Complete heart block PVC's (premature ventricular contractions) 09/10 Overview (05/19/2016): PVCs (premature ventricular contractions) Dizziness 09/11/2015 Overview (05/19/2016): Dizziness Orthostasis 09/11/2015 Overview (05/19/2016): Orthostasis Resolved Problems Problem Noted Date Diagnosed Date Resolved Date Medication monitoring encounter 05/23/2017 09/15/2021 Cardiac arrhythmia 09/11/2015 7 Overview (05/19/2016): Cardiac arrhythmia, unspecified Encounters Date Type Department Care Team Description 02/22/2024 Orders Only [facility] [address] [place] [phone] Deric Winkler MD Pacemaker (Primary Dx); Paroxysmal supraventricular tachycardia (HCC); Intermittent complete heart block (CMS/HCC) (HCC) 02/21/2024 7:00 AM DEPLOYMENT MANAGER Ancillary Procedure [facility] [address] [place] [phone] NICM (nonischemic cardiomyopathy) (CMS/HCC) (HCC); ICD (implantable cardioverter-defibrilla tor) in place; Ventricular fibrillation (CMS/HCC) (HCC); NSVT (nonsustained ventricular tachycardia) (HCC) 01/10/2024 Orders Only [facility] [address] [place] [phone] ProviderMark MD 12/28/2023 11:00 AM DEPLOYMENT MANAGER Office Visit [facility] at [address] [place] [address] Deric Winkler MD Paroxysmal supraventricular tachycardia (HCC) (Primary Dx); Pacemaker; Intermittent complete heart block (CMS/HCC) (HCC); Stage 3 chronic kidney disease, unspecified whether stage 3a or 3b CKD (HCC); History of pulmonary embolism from Last 3 Months Surgical History Surgery Date Site/Laterality Comments APPENDECTOMY Appendectomy Medical History Medical History Date Comments Hx Other Medical dizziness; Comm ents: 09/11/2015 - Hx Other Medical 2008 right ankle fra cture; Comments: 09/11/2015 - Hx Other Medical 2002 hip surgery; Co mments: 09/11/2015 - Hx Other Medical 2004 gastric bypass; Comments: 09/11/2015 - Gastroesophageal reflux disease GERD Hx Other Medical fibromyalgia; C omments: 09/11/2015 - Hx Other Medical chronic back pa in; Comments: 09/11/2015 - Hx Other Medical 2001 Fatty liver; Co mments: 09/11/2015 - Hx Other Medical Thyroid diz; Co mments: 09/11/2015 - Osteoarthritis Osteoarthritis; Comments: 09/11/2015 - Hx Other Medical Questionable ad renal insufficiency; Comments: 09/11/2015 - Family History Medical History Relation Name Comments Heart failure Father Congestive hea rt failure; Cause of : Congestive heart failure Heart failure Mother Congestive hea rt failure; Cause of : Congestive heart failure Other Other Family history of quad bypass; Relation Name Status Comments Father (Age 62) Mother (Age 78) Other Social History Tobacco Use Types Packs/Day Years Used Date Smoking Tobacco: Never Smokeless Tobacco: Never Tobacco Cessation:Counseling Given: Not Answered Alcohol Use Standard Drinks/Week Comments No 0 (1 standard drink = 0.6 oz pur e alcohol) Comments Unknown Sex and Gender Information Value Date Recorded Sex Assigned at Not on file Legal Sex Female 4:59 AM DEPLOYMENT MANAGER Gender Identity Not on file Sexual Orientation Not on file Obstetrics History Last Filed Vital Signs Vital Sign Reading Time Taken Comments Blood Pressure 104/62 12/28/2023 10:58 AM DEPLOYMENT MANAGER Pulse 81 12/28/2023 10:58 AM DEPLOYMENT MANAGER Temperature - - Respiratory Rate 16 11/16/2016 12:04 PM CDT Oxygen Saturation 99% 12/28/2023 10:58 AM DEPLOYMENT MANAGER Inhaled Oxygen Concentration - - Weight 88.5 kg (195 lb) 12/28/2023 10:58 AM DEPLOYMENT MANAGER Height 162.6 cm (5' 4 ) 12/28/2023 10:58 AM DEPLOYMENT MANAGER Body Mass Index 33.47 12/28/2023 10:58 AM DEPLOYMENT MANAGER Plan of Treatment Health Maintenance Due Date Last Done Comments Depression Screening 1942 Fall Risk Assessment 1942 Osteoporosis Screening-Bone Density Scan 1942 DTaP/Tdap/Td Vaccine (1 - Tdap) 1953 Hepatitis B Screening 1960 Zoster Vaccine (1 of 2) 1992 Well Visit 65+ 06/06/2007 Pneumococcal vaccine 65+ (2 of 2 - PPSV23 or PCV20) 10/14/2018 10/14/2017, 10/14/2016, 11/07/2014 Influenza Vaccine (#1) 2023 , 11/30/2018, 11/14/2017, Additional history exists Medical Devices Implanted Type Area Drink Waiter Device Identifier Shelf Expiration Date Model / Serial / Lot Pacemaker-10/22 Implanted:10/2015 by Vivian Sol MD (Quantity not on file) Pacemaker Chest [employer] [id number] / [id number] / Insurance MEDICARE IDPA MEDICARE IDPA Care Teams Night Shift Manager Relationship Specialty Start Date End Date Pilo Deras DO [address] [facility] [address] [place] [address] PCP - General Internal Medicine 12/28/23
--- OUTSIDE RECORDS SUMMARY | 2024-03-08 01:02 | XMS_ITS | Encounter Summary ---
Author Organization [facility] Address [address] [place] [address] Phone Care Team Providers Care Product Managent Intern Name Role Phone Flynn Aviles DO Primary Care Provider [phone] Reason for Visit * Reason Comments Med Refill Encounter Details Date Type Department Care Team (Late st Contact Info) Description 10/07/[address] [facility] Nephrology and Hypertension [address] [facility], [address] [address] Lalo Sandoval MD [address] [facility], [address] [place] [address] Social History Tobacco Use Types Packs/Day Years Used Date Smoking Tobacco: Never Smokeless Tobacco: Never Alcohol Use Standard Drinks/Week Comments Yes 0 (1 standard drink = 0.6 oz pur e alcohol) Sex and Gender Information Value Date Recorded Sex Assigned at Not on file Gender Identity Not on file Sexual Orientation Not on file documented as of this encounter Miscellaneous Notes * Telephone Encounter - Cony Sandoval MA - 10/12/2020 9:33 AM CDT Pt is almost out or famitodine and asks for a refill at 20 mg. She has been cutting 40 in half but the cut edge gets stuck in her throat. She checked with the pharm and they now have 20 mg. documented in this encounter Plan of Treatment Not on file documented as of this encounter Visit Diagnoses Not on filedocumented in this encounter Care Teams Product Managent Intern Relationship Specialty Start Date End Date Flynn Aviles DO [address] [facility] 21 [place] [address] PCP - General Internal Medicine 05/28/18 documented as of this encounter
--- OUTSIDE RECORDS SUMMARY | 2024-03-08 01:02 | XMS_ITS | Clinical Summary ---
Author Organization [facility] Address [address] [place] [address]. [place], [place] [address] [place] [address] Care Team Providers Care Capsule Machine Operator Name Role Phone Unavailable Primary Care Provider Unavailabl e Social History Tobacco Use Types Packs/Day Years Used Date Smoking Tobacco: Never Assessed Comments Unknown Sex and Gender Information Value Date Recorded Sex Assigned at Not on file Legal Sex Female 6:06 PM CDT Gender Identity Not on file Sexual Orientation Not on file Plan of Treatment Health Maintenance Due Date Last Done Comments DTaP, Tdap and Td Vaccines ( 1 - Tdap) 1961 Zoster Vaccines (1 of 2) 1992 Dexa Scan (General) 06/06/2007 Pneumococcal Vaccine: 65+ Ye ars (1 of 1 - PCV) 06/06/2007 RSV Immunization or 60+ Years (1 - 1-dose 75+ series) 2017 COVID-19 Vaccine ( - 2023-2 5 season) 2023 Influenza Adult (#1) 2023 Meningococcal Vaccine Aged Out No gardenia nola eligible based on patient's age to complete this topic RSV Immunizations Under 20 Months Aged Out No longer eligible based on patient's age to complete this topic
--- OUTSIDE RECORDS SUMMARY | 2024-03-08 01:02 | XMS_ITS | Encounter Summary ---
Author Organization [facility] Address [address] [facility] [address] [place] [address] Care Team Providers Care Planning Assistant Name Role Phone Flynn Aviles MD Primary Care Provider + [phone] Flynn Aviles MD Primary Care Provider + [phone] Pilo Deras DO Primary Care Provider [phone] Encounter Details Date Type Department Care Team (Late st Contact Info) Description 04/19/2016 Orders Only [facility] ProviderMark MD [address] [place] [address] Social History Tobacco Use Types Packs/Day Years Used Date Smoking Tobacco: Never Assessed Comments Unknown Sex and Gender Information Value Date Recorded Sex Assigned at Not on file Legal Sex Female 4:59 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 Historical Provider [facility] KIANNA AGUILA Final Result documented in this encounter Visit Diagnoses Not on filedocumented in this encounter Care Teams Planning Assistant Relationship Specialty Start Date End Date Flynn Aviles MD [address] [facility] 120 [place] [address] PCP - General 05/13/16 12/27/23 Flynn Aviles MD [address] [facility] [address] [place] [address] PCP - General 03/03/16 05/12/16 Pilo Deras DO [address] [facility] [address] [place] [address] PCP - General Internal Medicine 12/28/23 documented as of this encounter
--- OUTSIDE RECORDS SUMMARY | 2024-03-08 01:02 | XMS_ITS | Encounter Summary ---
Author Organization [facility] Address [address] [facility] [address] [place] [address] Care Team Providers Care Nuclear Medical Tech Name Role Phone Flynn Aviles MD Primary Care Provider + [phone] Flynn Aviles MD Primary Care Provider + [phone] Pilo Deras DO Primary Care Provider [phone] Encounter Details Date Type Department Care Team (Late st Contact Info) Description 03/03/2016 Orders Only [facility] ProviderMark MD [address] [place] [address] Social History Tobacco Use Types Packs/Day Years Used Date Smoking Tobacco: Never Assessed Comments Unknown Sex and Gender Information Value Date Recorded Sex Assigned at Not on file Legal Sex Female 4:59 AM PERSON INVESTIGATOR Gender Identity Not on file Sexual Orientation Not on file documented as of this encounter Plan of Treatment Not on file documented as of this encounter Procedures Procedure Name Priority Date/Time Associated Diagnosis Comments CARDIOLOGY REPORT 03/03/2016 documented in this encounter Results * CARDIOLOGY REPORT (03/03/2016) Anatomical Region Laterality Modality Other Narrative 03/03/2016 Ordered by an unspecified provider. Historical Provider [facility] KIANNA AGUILA Final Result documented in this encounter Visit Diagnoses Not on filedocumented in this encounter Care Teams Nuclear Medical Tech Relationship Specialty Start Date End Date Flynn Aviles MD [address] [facility] 120 [place] [address] PCP - General 05/13/16 12/27/23 Flynn Aviles MD [address] [facility] [address] [place] [address] PCP - General 03/03/16 05/12/16 Pilo Deras DO [address] [facility] [address] [place] [address] PCP - General Internal Medicine 12/28/23 documented as of this encounter
--- OUTSIDE RECORDS SUMMARY | 2024-03-08 01:02 | XMS_ITS | Encounter Summary ---
Author Organization [facility] Address [address] [facility] [address] [place] [address] Care Team Providers Care Back End Architect Name Role Phone Flynn Aviles MD Primary Care Provider [phone] Flynn Aviles MD Primary Care Provider [phone] Flynn Aviles MD Primary Care Provider [phone] Pilo Deras DO Primary Care Provider [phone] Encounter Details Date Type Department Care Team (Late st Contact Info) Description 02/26/2016 Orders Only [facility] ProviderMark MD [address] [place] [address] Social History Tobacco Use Types Packs/Day Years Used Date Smoking Tobacco: Never Assessed Comments Unknown Sex and Gender Information Value Date Recorded Sex Assigned at Not on file Legal Sex Female 4:59 AM 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 Historical Provider [facility] KIANNA AGUILA Final Result documented in this encounter Visit Diagnoses Not on filedocumented in this encounter Care Teams Back End Architect Relationship Specialty Start Date End Date Flynn Aviles MD [address] [facility] 120 [place] [address] PCP - General 05/13/16 12/27/23 Flynn Aviles MD [address] [facility] 120 [place] [address] PCP - General 03/03/16 05/12/16 Flynn Aviles MD [address] [facility] [address] [place] [address] PCP - General 02/17/16 03/02/16 Pilo Deras DO [address] [facility] 21 [place] [address] PCP - General Internal Medicine 12/28/23 documented as of this encounter
--- OUTSIDE RECORDS SUMMARY | 2024-03-08 01:02 | XMS_ITS | Clinical Summary ---
Author Organization [facility] Address [address] [place] [address] Care Team Providers Care Stripper Machine Operator Name Role Phone StefanFlynn Georgina DO Primary Care Provider [phone] Source Comments [facility],non-owned Affiliates and Associated Physician Practices is amultiple site organization consisting of ambulatory clinics and hospital sitesin [place], [place], [place] and [place]. This disclosure is being madepursuant to the Care Everywhere program and may not contain all information available regarding this patient. Last updated 17.[facility] [employer] Allergies Active Allergy Reactions Criticality Noted Date Comments Penicillins 05/31/2016 Medications * Be aware that medications may not be up to date on this document. Alwaysverify current medications with the patient. Medication Sig Dispensed Refills Start Date End Date Status ALPRAZolam (XANAX) 0.5 MG tablet Take 0.5 mg by mouth nightly as needed 0 05/18/2016 Active calcitriol (ROCALTROL) 0.5 MCG capsule Take 0.5 mcg by mouth once daily 3 02/19/2016 Active digoxin (LANOXIN) 0.125 MG tablet Take 0.125 mg by mouth once daily 2 05/15/2016 Active vitamin D, ergocalciferol, (DRISDOL) 47016 UNITS capsule every 7 days 0 05/15/2016 Active eszopiclone (LUNESTA) 2 MG tablet Take 2 mg by mouth nightly as needed 3 05/18/2016 Active fluticasone propionate (FLONASE) 50 MCG/ACT nasal spray 2 times daily 3 02/19/2016 Active cetirizine (ZYRTEC ALLERGY) 10 MG tablet Take 10 mg by mouth once daily as needed for Allergies Active Cyanocobalamin (VITAMIN B 12 PO) Take by mouth every 2 days Active Active Problems Problem Noted Date Diagnosed Date Chronic kidney disease (CKD) Fibromyalgia Arthritis Depression Adrenal insufficiency Complete heart block SVT (supraventricular tachycardia) Family History Medical History Relation Name Comments Heart Failure Father Heart Failure Mother Relation Name Status Comments Brother Father Mother Social History Tobacco Use Types Packs/Day Years Used Date Smoking Tobacco: Never Smokeless Tobacco: Never Alcohol Use Standard Drinks/Week Comments No 0 (1 standard drink = 0.6 oz pur e alcohol) Sex and Gender Information Value Date Recorded Sex Assigned at Not on file Gender Identity Not on file Sexual Orientation Not on file Last Filed Vital Signs Vital Sign Reading Time Taken Comments Blood Pressure 125/73 05/31/2016 4:18 PM CDT Pulse 75 05/31/2016 4:18 PM CDT Temperature - - Respiratory Rate - - Oxygen Saturation - - Inhaled Oxygen Concentration - - Weight 74.8 kg (165 lb) 05/31/2016 4:18 PM CDT Height 158.8 cm (5' 2.5 ) 05/31/2016 4:18 PM CDT Body Mass Index 29.7 05/31/2016 4:18 PM CDT Plan of Treatment Health Maintenance Due Date Last Done Comments BONE DENSITY TESTING 1940 MEDICARE AWV ? 12 MONTHS 1940 DTAP/TDAP/TD VACCINES (1 - Tdap) 1961 PNEUMOCOCCAL VACCINE 50+ (1 of 1 - PCV) 1992 ZOSTER VACCINE (1 of 2) 1992 Respiratory Syncytial Virus (RSV) Vaccine Pt: or over 60 yrs (1 - 1-dose 75+ series) 2017 COVID-19 VACCINE (1 - 2023- season) 2023 INFLUENZA VACCINE (#1) 10/15/202311/07/201 6, 11/05/2013, 11/16/2012, Additional history exists DEPRESSION SCREENING 02/14/2024 HEPATITIS B VACCINE Aged Out No longe r eligible based on patient's age to complete this topic HIB VACCINE Aged Out No longer eligi ble based on patient's age to complete this topic HPV VACCINE Aged Out No longer eligi ble based on patient's age to complete this topic MENINGOCOCCAL (Group B) VACCINE Aged Out No longer eligible based on patient's age to complete this topic MENINGOCOCCAL VACCINE Aged Out No gardenia nola eligible based on patient's age to complete this topic Care Teams Stripper Machine Operator Relationship Specialty Start Date End Date Flynn Aviles DO [address] [facility] [address] [facility] [facility] [place], [place] [address] PCP - General Internal Medicine 11/25/15
--- OUTSIDE RECORDS SUMMARY | 2024-03-08 01:02 | XMS_ITS | Encounter Summary ---
Author Organization [facility] Address [address] [facility] [address] [place] [address] Care Team Providers Care Pockets And Pieces Necktie Operator Name Role Phone Flynn Aviles MD Primary Care Provider [phone] Pilo Deras DO Primary Care Provider [phone] Encounter Details Date Type Department Care Team (Late st Contact Info) Description 07/06/2016 Orders Only [facility] ProviderMark MD [address] [place] [address] Social History Tobacco Use Types Packs/Day Years Used Date Smoking Tobacco: Never Assessed Comments Unknown Sex and Gender Information Value Date Recorded Sex Assigned at Not on file Legal Sex Female 4:59 AM WOMEN'S ACTIVITIES ADVISER Gender Identity Not on file Sexual Orientation Not on file documented as of this encounter Plan of Treatment Not on file documented as of this encounter Procedures Procedure Name Priority Date/Time Associated Diagnosis Comments CARDIOLOGY REPORT 07/06/2016 documented in this encounter Results * CARDIOLOGY REPORT (07/06/2016) Anatomical Region Laterality Modality Other Narrative 07/06/2016 Ordered by an unspecified provider. Historical Provider [facility] KIANNA AGUILA Final Result documented in this encounter Visit Diagnoses Not on filedocumented in this encounter Care Teams Pockets And Pieces Necktie Operator Relationship Specialty Start Date End Date Flynn Aviles MD [address] [facility] 120 [place], [place] [address] PCP - General 05/13/16 12/27/23 Pilo Deras DO [address] [facility] 21 [place], [place] [address] PCP - General Internal Medicine 12/28/23 documented as of this encounter
--- OUTSIDE RECORDS SUMMARY | 2024-03-08 01:02 | XMS_ITS | Encounter Summary ---
Author Organization [facility] Address [address] [facility] [address] [place] [address] Care Team Providers Care Headliner Installer Name Role Phone Flynn Aviles MD Primary Care Provider + [phone] Flynn Aviles MD Primary Care Provider + [phone] Pilo Deras DO Primary Care Provider [phone] Encounter Details Date Type Department Care Team (Late st Contact Info) Description 04/06/2016 Orders Only [facility] ProviderMark MD [address] [place] [address] Social History Tobacco Use Types Packs/Day Years Used Date Smoking Tobacco: Never Assessed Comments Unknown Sex and Gender Information Value Date Recorded Sex Assigned at Not on file Legal Sex Female 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 Historical Provider [facility] KIANNA AGUILA Final Result documented in this encounter Visit Diagnoses Not on filedocumented in this encounter Care Teams Headliner Installer Relationship Specialty Start Date End Date Flynn Aviles MD [address] [facility] 120 [place] [address] PCP - General 05/13/16 12/27/23 Flynn Aviles MD [address] [facility] [place] [address] PCP - General 03/03/16 05/12/16 Pilo Deras DO [address] [place] [address] PCP - General Internal Medicine 12/28/23 documented as of this encounter
--- OUTSIDE RECORDS SUMMARY | 2024-03-08 01:02 | XMS_ITS | Referral Summary ---
Author Organization [facility] Address [address] [facility] [place] [address] Care Team Providers Care Real Estate Closing Coordinator Name Role Phone StefanFlynn Georgina DO Primary Care Provider [phone] Source Comments [facility],non-owned Affiliates and Associated Physician Practices is amultiple site organization consisting of ambulatory clinics and hospital sitesin [place], [place]. This disclosure is being madepursuant to the Care Everywhere program and may not contain all information available regarding this patient. Last updated 17.[facility] Allergies Active Allergy Reactions Criticality Noted Date [...] 2 05/15/2016 Active vitamin D, ergocalciferol, (DRISDOL) 69588 UNITS capsule every 7 days 0 05/15/2016 [...] insufficiency Complete heart block SVT (supraventricular tachycardia) Social History Tobacco Use Types Packs/Day Years [...] 05/31/2016 4:18 PM CDT Plan of Treatment Not on file Care Teams Real Estate Closing Coordinator Relationship Specialty Start Date End Date Flynn Aviles DO [address] [facility] [address] [place] [address] PCP - General Internal Medicine 11/25/15
--- OUTSIDE RECORDS SUMMARY | 2024-03-08 01:02 | XMS_ITS | Referral Summary ---
Author Organization [facility] [address] [place] [address] [address] [place] [address] Care Team Providers Care Rubber Stamp Assembler Name Role Phone Pilo Deras DO Primary Care Provider [phone] Encounters Date Type Department Care Team Description 02/22/2024 Orders Only [facility] [address] [place] [address] [place] [phone] Deric Winkler MD Pacemaker (Primary Dx); Paroxysmal supraventricular tachycardia (HCC); Intermittent complete heart block (CMS/HCC) (HCC) 02/21/2024 7:00 AM DATA OPERATIONS LEADER Ancillary Procedure [facility] [address] [place] [address] [place] [phone] NICM (nonischemic cardiomyopathy) (CMS/HCC) (HCC); ICD (implantable cardioverter-defibrilla tor) in place; Ventricular fibrillation (CMS/HCC) (HCC); NSVT (nonsustained ventricular tachycardia) (HCC) 01/10/2024 Orders Only [facility] [address] [place] [address] [address] [place] [address] ProviderMark MD 12/28/2023 11:00 AM DATA OPERATIONS LEADER Office Visit [facility] at [address] [place] [address] Deric Winkler MD Paroxysmal supraventricular tachycardia (HCC) (Primary Dx); Pacemaker; Intermittent complete heart block (CMS/HCC) (HCC); Stage 3 chronic kidney disease, unspecified whether stage 3a or 3b CKD (HCC); History of pulmonary embolism from Last 3 Months Allergies Active Allergy Reactions Criticality Noted Date [...] 09/11/2015 7 Overview (05/19/2016): Cardiac arrhythmia, unspecified Social History Tobacco Use Types Packs/Day Years Used Date Smoking Tobacco: Never Smokeless Tobacco: Never Tobacco Cessation:Counseling Given: Not Answered Alcohol Use Standard Drinks/Week Comments No 0 (1 standard drink = 0.6 oz pur e alcohol) Comments Unknown Sex and Gender Information Value Date Recorded Sex Assigned at Not on file Legal Sex Female 4:59 AM DATA OPERATIONS LEADER Gender Identity Not on file Sexual Orientation Not on file Last Filed Vital Signs Vital Sign Reading Time Taken Comments Blood Pressure 104/62 12/28/2023 10:58 AM DATA OPERATIONS LEADER Pulse 81 12/28/2023 10:58 AM DATA OPERATIONS LEADER Temperature - - Respiratory Rate 16 11/16/2016 12:04 PM CDT Oxygen Saturation 99% 12/28/2023 10:58 AM DATA OPERATIONS LEADER Inhaled Oxygen Concentration - - Weight 88.5 kg (195 lb) 12/28/2023 10:58 AM DATA OPERATIONS LEADER Height 162.6 cm (5' 4 ) 12/28/2023 10:58 AM DATA OPERATIONS LEADER Body Mass Index 33.47 12/28/2023 10:58 AM DATA OPERATIONS LEADER Plan of Treatment Not on file Medical Devices Implanted Type Area Records Management Specialist Device Identifier Shelf Expiration Date Model / Serial / Lot Pacemaker-10/22 Implanted:10/2015 by Vivian Sol MD (Quantity not on file) Pacemaker [facility] [employer] [id number] / [id number] / Insurance MEDICARE IDID MEDICARE IDID Care Teams Rubber Stamp Assembler Relationship Specialty Start Date End Date Pilo Deras DO [address] [address] PCP - General Internal Medicine 12/28/23
--- OUTSIDE RECORDS SUMMARY | 2024-03-08 01:02 | XMS_ITS | Encounter Summary ---
Author Organization [facility] Address [address] [facility] [address] [place] [address] Care Team Providers Care Aeronautical Engineering Technologist Name Role Phone Flynn Aviles MD Primary Care Provider [phone] Flynn Aviles MD Primary Care Provider [phone]- [phone] Flynn Aviles MD Primary Care Provider [phone]- [phone] Pilo Deras DO Primary Care Provider [phone] Encounter Details Date Type Department Care Team (Late st Contact Info) Description 02/17/2016 Orders Only [facility] ProviderMark MD [address] [place] [address] Social History Tobacco Use Types Packs/Day Years Used Date Smoking Tobacco: Never Assessed Comments Unknown Sex and Gender Information Value Date Recorded Sex Assigned at Not on file Legal Sex Female 4:59 AM PENCIL INSPECTOR Gender Identity Not on file Sexual Orientation Not on file documented as of this encounter Plan of Treatment Not on file documented as of this encounter Procedures Procedure Name Priority Date/Time Associated Diagnosis Comments CARDIOLOGY REPORT 02/17/2016 documented in this encounter Results * CARDIOLOGY REPORT (02/17/2016) Anatomical Region Laterality Modality Other Narrative 02/17/2016 Ordered by an unspecified provider. Historical Provider [facility] KIANNA AGUILA Final Result documented in this encounter Visit Diagnoses Not on filedocumented in this encounter Care Teams Aeronautical Engineering Technologist Relationship Specialty Start Date End Date Flynn Aviles MD [address] [facility] [address] [place] [address] PCP - General 05/13/16 12/27/23 Flynn Aviles MD [address] [facility] [address] [place] [address] PCP - General 03/03/16 05/12/16 Flynn Aviles MD [address] [facility] [address] [place] [address] PCP - General 02/17/16 03/02/16 Pilo Deras DO [address] [facility] [address] [place] [address] PCP - General Internal Medicine 12/28/23 documented as of this encounter
--- OUTSIDE RECORDS SUMMARY | 2024-03-08 01:02 | XMS_ITS | Clinical Summary ---
Author Organization [facility] Address [address] [place] [address] Phone Care Team Providers Care Senior Climate Advisor Name Role Phone Flynn Aviles Primary Care Provider [phone] Allergies Active Allergy Reactions Criticality Noted Date Comments Iodine Diarrhea 09/30/2018 Other reaction(s): Other (See comments) Reaction: d, ??t CKD, ?? Penicillins Rash,Unknown Medium 05/31/2016 Medications Medication Sig Dispensed Refills Start Date End Date Status Multiple Vitamin (MULTIVITAMIN) capsule 1 w breakfast 09/10/2011 Active docusate sodium (COLACE) 100 MG capsule 09/10/2011 Active ALPRAZolam (XANAX) 0.5 MG tablet prn. 04/25/2012 Active Eszopiclone (LUNESTA) 2 MG tablet hs prn 0 06/03/2015 Active fluticasone (FLONASE ALLERGY RELIEF) 50 MCG/ACT nasal spray 1 prn 0 10/19/2016 Activ e bisacodyl (DULCOLAX) 5 MG EC tablet 2 prn 0 10/19/2016 Active Cetirizine HCl (ZyrTEC ALLERGY) 10 MG capsule 1 capsule (10 mg) orally daily as needed 0 10/19/2016 Active Linaclotide (LINZESS) 72 MCG capsule 1 capsule (72 mcg) orally daily on an empty stomach before first mealof the day as needed 0 10/19/2016 Active calcium carbonate (OS-MARY) 600 MG tablet 1with lunch and oe with dinner 09/10/2011 Active Methylcobalamin (K30-QKYHUU) 1 MG chewable tablet 2 qod 0 06/03/2015 Active levothyroxine (SYNTHROID, LEVOTHROID) 25 MCG tablet Take 25 mcg by mouth 1 (one) time each day 07/17/2019 Active carboxymethylcellulo se (Refresh Liquigel) 1 % gel OPHTHalmic solution dropperette Apply 1 drop to affected eye(s) Active dilTIAZem (CARDIZEM) 30 MG immediate release tablet Take 30 mg by mouth 2 (two) times a day 09/03/2020 Active famotidine (PEPCID) 20 MG tablet Take 1 tablet (20 mg total) by mouth 1 (one) time each day 90 tablet 3 10/12/2020 Active ferrous sulfate 325 (65 Fe) MG tablet Take 325 mg by mouth 1 (one) time each day with breakfast Active ergocalciferol (VITAMIN D2) 1.25 MG (73905 UT) capsule TAKE 1 CAPSULE BY MOUTH 1 (ONE) TIME PER WEEK 12 capsule 4 07/21/2021 Active calcitriol (ROCALTROL) 0.5 MCG capsule TAKE 1 CAPSULE BY MOUTH 1 (ONE) TIME EACH DAY 90 capsule 3 10/25/2021 Active Active Problems Problem Noted Date Diagnosed Date 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 Depressive disorder 09/30/2018 Dyslipidemia 12/27/2017 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 Overview (09/30/2018): Overview: Complete heart block Orthostatic hypotension 09/11/2015 Overview (09/30/2018): Overview: Orthostasis Chronic kidney disease, stage 4 (severe) 015 Hypertensive chronic kidney disease with stage 1 through stage 4 chronic kidney disease, or unspecified chronic kidney disease 08/16/2011 Primary 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 Immunizations Name Administration Dates Next Due Influenza TIV (IM) 11/13/2020,11/30/2018 Pneumococcal Conjugate 10/14/2016 Pneumococcal Conjugate 13-Valent 10/14/2017 Family History Medical History Relation Comments Heart disease Father Heart disease Mother Kidney disease Neg Hx Kidney stone Neg Hx Relation Status Comments Father Mother Social History Tobacco Use Types [...] Sign Reading Time Taken Comments Blood Pressure 106/60 10/20/2021 9:50 AM CDT Pulse 72 10/20/2021 9:50 AM CDT Temperature 34.9 ??C (94.9 ??F) 10/20/2021 9:50 AM CD T Respiratory Rate 14 08/15/2012 12:01 AM CDT Oxygen Saturation - - Inhaled Oxygen Concentration - - Weight 89.4 kg (197 lb) 10/20/2021 9:50 AM CDT Height 162.6 cm (5' 4 ) 10/20/2021 9:50 AM CDT Body Mass Index 33.81 10/20/2021 9:50 AM CDT Plan of Treatment Health Maintenance Due Date Last Done Comments Pneumococcal PPSV23/PCV13 65 + Years / High and Highest Risk (2 of 4 - PPSV23 or PCV20) 12/09/2017 10/14/2017 Influenza Vaccine (#1) 2023 11/13/2020, 2018 Care Teams Senior Climate Advisor Relationship Specialty Start Date End Date Flynn Aviles DO [address] [facility] 21 [place] [address] PCP - General Internal Medicine 05/28/18
--- OUTSIDE RECORDS SUMMARY | 2024-03-08 01:02 | XMS_ITS | Patient Health Summary ---
Author Organization [facility] Address [address] [facility] [place] [address] Care Team Providers Care Sewer Pipe Press Operator Name Role Phone StefanFlynn Georgina ONTIVEROS Primary Care Provider [phone] Note from [facility],non-owned Affiliates and Associated Physician Practices is amultiple site organization consisting of ambulatory clinics and hospital sitesin [place], [place], [place] and [place]. This disclosure is being madepursuant to the Care Everywhere program and may not contain all information available regarding this patient. Last updated 17.[facility] Allergies * Penicillins Medications * Be aware that medications may not be up to date on this document. Alwaysverify current medications with the patient. * ALPRAZolam (XANAX) 0.5 MG tablet(Started 05/18/2016) Take 0.5 mg by mouth nightly as needed * calcitriol (ROCALTROL) 0.5 MCG capsule(Started 02/19/2016) Take 0.5 mcg by mouth once daily 3 refills left * digoxin (LANOXIN) 0.125 MG tablet(Started 05/15/2016) Take 0.125 mg by mouth once daily 2 refills left * vitamin D, ergocalciferol, (DRISDOL) 24764 UNITS capsule(Started 05/15/2016) every 7 days * eszopiclone (LUNESTA) 2 MG tablet(Started 05/18/2016) Take 2 mg by mouth nightly as needed 3 refills left * fluticasone propionate (FLONASE) 50 MCG/ACT nasal spray(Started 02/19/2016) 2 times daily 3 refills left * cetirizine (ZYRTEC ALLERGY) 10 MG tablet Take 10 mg by mouth once daily as needed for Allergies * Cyanocobalamin (VITAMIN B 12 PO) Take by mouth every 2 days Active Problems Problem Noted Date Diagnosed Date [...] Mass Index 29.7 05/31/2016 4:18 PM CDT Procedures * CARDIAC PROCEDURE ORDER(Performed 10/23/2015) * LAB RESULTS ORDER(Performed 10/23/2015) * LAB RESULTS ORDER(Performed 10/13/2015) Results * LAB RESULTS ORDER (10/23/2015) Only the most recent of2 resultswithin the time period is included. Vivian Sol MD LAB - THERAPEUTIC D RUG MONITORING ORDERABLES * CARDIAC PROCEDURE ORDER (10/23/2015) Vivian Sol MD CARDIAC SERVICES OR DERABLES Care Teams Sewer Pipe Press Operator Relationship Specialty Start Date End Date Flynn Aviles DO [address] [facility] [address] [address] PCP - General Internal Medicine 11/25/15
--- OUTSIDE RECORDS SUMMARY | 2024-03-08 01:02 | XMS_ITS | Encounter Summary ---
Author Organization [facility] Address [address] [facility] [address] [place] [address] Care Team Providers Care Plastic Cutter Name Role Phone Flynn Aviles MD Primary Care Provider [phone] Pilo Deras DO Primary Care Provider [phone] Encounter Details Date Type Department Care Team (Late st Contact Info) Description 06/15/2016 Orders Only [facility] ProviderMark MD [address] [place] [address] Social History Tobacco Use Types Packs/Day Years Used Date Smoking Tobacco: Never Assessed Comments Unknown Sex and Gender Information Value Date Recorded Sex Assigned at Not on file Legal Sex Female 4:59 AM CHEMICAL PLANT OPERATOR Gender Identity Not on file Sexual Orientation Not on file documented as of this encounter Plan of Treatment Not on file documented as of this encounter Procedures Procedure Name Priority Date/Time Associated Diagnosis Comments CARDIOLOGY REPORT 06/15/2016 documented in this encounter Results * CARDIOLOGY REPORT (06/15/2016) Anatomical Region Laterality Modality Other Narrative 06/15/2016 Ordered by an unspecified provider. Historical Provider [facility] KIANNA AGUILA Final Result documented in this encounter Visit Diagnoses Not on filedocumented in this encounter Care Teams Plastic Cutter Relationship Specialty Start Date End Date Flynn Aviles MD [address] [facility] 120 [place], [place] [id number] PCP - General 05/13/16 12/27/23 Pilo Deras DO [address] [facility] 21 [place], [place] [id number] PCP - General Internal Medicine 12/28/23 documented as of this encounter
== END 2024-03-06 13:16 | disposition home or self-care (01) ==
LOC: ANHLAB 13:18
PROVIDERS: PCP Internal Medicine; Referring Provider Internal Medicine Cardiovascular Disease; Visit Provider Internal Medicine Nephrology
DX: N18.32 Chronic kidney disease, stage 3b (principal)
CPT/HCPCS: 36415; 80069; 82570; 83970; 84156; 85027

== ENCOUNTER 2024-03-20 13:40 | Outpatient (CLI) | payer MEDICARE, MEDICAID, SELFPAY ==
[2024-03-20 13:58] LABS: Add Urine Microscopic? YES; Appearance Urine Cloudy (Clear); Bacteria Urine 4+ /hpf; Bilirubin Urine Negative (Negative); Blood Urine Negative (Negative); Color Urine Yellow (Yellow); Glucose Urine UA Negative (Negative); Ketones Urine Negative (Negative); Leukocyte Esterase Ur 3+ LEU/UL (Negative); Nitrate Urine Negative (Negative); Non Pathogenic Casts 0-2; Protein Urine Trace mg/dL (Negative); RBC Urine 0-2 /hpf (0-2); Specific Grav Ur 1.013 (1.001-1.035); Squamous Epithelial Cell Urine Many /hpf (Few); Urobilinogen Urine 0.2 mg/dL (<2.0); WBC Urine 51-100 /hpf (0-3); pH Urine 5.5 (5.0-9.0)
--- OUTSIDE RECORDS SUMMARY | 2024-03-20 14:38 | XMS_ITS | Encounter Summary ---
Author Organization [facility] Address [address] [facility] [address] [place] [address] Care Team Providers Care Dobby Loom Chain Pegger Name Role Phone Flynn Aviles MD Primary Care Provider [phone] Flynn Aviles MD Primary Care Provider [phone] Flynn Aviles MD Primary Care Provider [phone] Pilo Deras DO Primary Care Provider [phone] Encounter Details Date Type Department Care Team (Late st Contact Info) Description 02/17/2016 Orders Only [facility] ProviderMark MD [address] [place] [address] Social History Tobacco Use Types Packs/Day Years Used Date Smoking Tobacco: Never Assessed Comments Unknown Sex and Gender Information Value Date Recorded Sex Assigned at Not on file Legal Sex Female 4:59 AM TARIFF INSPECTOR Gender Identity Not on file Sexual [...] on filedocumented in this encounter Care Teams Dobby Loom Chain Pegger Relationship Specialty Start Date End Date Flynn Aviles MD [address] [facility] 120 [place] [address] PCP - General 05/13/16 12/27/23 Flynn Aviles MD [address] [facility] [address] [place] [address] PCP - General 03/03/16 05/12/16 Flynn Aviles MD [address] [facility] [address] [place] [address] PCP - General 02/17/16 03/02/16 Pilo Deras DO [address] [facility] [address] [place] [address] PCP - General Internal Medicine 12/28/23 documented as of this encounter
--- OUTSIDE RECORDS SUMMARY | 2024-03-20 14:38 | XMS_ITS | Encounter Summary ---
Author Organization [facility] Address [address] [facility] [address] [place] [address] Care Team Providers Care Dairy Feed Worker Name Role Phone Flynn Aviles MD Primary Care Provider + [phone] Flynn Aviles MD Primary Care Provider + [phone] Pilo Deras DO Primary Care Provider [phone] Encounter Details Date Type Department Care Team (Late st Contact Info) Description 04/19/2016 Orders Only [facility] ProviderMark MD [address] [place] [address] Social History Tobacco Use Types Packs/Day Years Used Date Smoking Tobacco: Never Assessed Comments Unknown Sex and Gender Information Value Date Recorded Sex Assigned at Not on file Legal Sex Female 4:59 AM COAL SAMPLE TESTER Gender Identity Not on file Sexual Orientation [...] on filedocumented in this encounter Care Teams Dairy Feed Worker Relationship Specialty Start Date End Date Flynn Aviles MD [address] [facility] 120 [place] [address] PCP - General 05/13/16 12/27/23 Flynn Aviles MD [address] [facility] [address] [place] [address] PCP - General 03/03/16 05/12/16 Pilo Deras DO [address] [facility] [address] [place] [address] PCP - General Internal Medicine 12/28/23 documented as of this encounter
--- OUTSIDE RECORDS SUMMARY | 2024-03-20 14:38 | XMS_ITS | Referral Summary ---
Author Organization [facility] [address] [place] [address] [address] [place] [address] Care Team Providers Care Cart Pusher Name Role Phone Pilo Deras DO Primary Care Provider [phone] Encounters Date Type Department Care Team Description 02/22/2024 Orders Only [facility] Cardiology [address] [place] [address] [place] [address] Deric Winkler MD Pacemaker (Primary Dx); Paroxysmal supraventricular tachycardia (HCC); Intermittent complete heart block (CMS/HCC) (HCC) 02/21/2024 7:00 AM MARBLE FINISHER Ancillary Procedure [facility] Cardiology [address] [place] [address] [place] [address] NICM (nonischemic cardiomyopathy) (CMS/HCC) (HCC); ICD (implantable cardioverter-defibrilla tor) in place; Ventricular fibrillation (CMS/HCC) (HCC); NSVT (nonsustained ventricular tachycardia) (HCC) 01/10/2024 Orders Only [facility] Cardiology [address] [place] [address] [address] [place] [address] ProviderMark MD 12/28/2023 11:00 AM MARBLE FINISHER Office Visit [facility] Cardiology at [address] [place] [address] Deric Winkler MD Paroxysmal supraventricular tachycardia (HCC) (Primary Dx); Pacemaker; Intermittent complete heart block (CMS/HCC) (HCC); Stage 3 chronic kidney disease, unspecified whether stage 3a or 3b CKD (HCC); History of pulmonary embolism from Last 3 Months Allergies Active Allergy Reactions Criticality Noted Date Comments Iodine Other (See comments) Low 09/30/2018 Reaction: d, t CKD, Penicillins Unknown,Rash Medium 05/31/2016 Medications eszopiclone (LUNESTA) [...] on file Legal Sex Female 4:59 AM MARBLE FINISHER Gender Identity Not on file Sexual Orientation Not on file Last Filed Vital Signs Vital Sign Reading Time Taken Comments Blood Pressure 104/62 12/28/2023 10:58 AM MARBLE FINISHER Pulse 81 12/28/2023 10:58 AM MARBLE FINISHER Temperature - - Respiratory Rate 16 11/16/2016 12:04 PM CDT Oxygen Saturation 99% 12/28/2023 10:58 AM MARBLE FINISHER Inhaled Oxygen Concentration - - Weight 88.5 kg (195 lb) 12/28/2023 10:58 AM MARBLE FINISHER Height 162.6 cm (5' 4 ) 12/28/2023 10:58 AM MARBLE FINISHER Body Mass Index 33.47 12/28/2023 10:58 AM MARBLE FINISHER Plan of Treatment Not on file Medical Devices Implanted Type Area Band Ripsaw Operator Device Identifier Shelf Expiration Date Model / Serial / Lot Pacemaker-10/22 Implanted:10/2015 by Vivian Sol MD (Quantity not on file) Pacemaker Chest [facility] [employer] CHB ASSURITY 2240 / [id number] / Insurance MEDICARE IDPA MEDICARE IDPA Care Teams Cart Pusher Relationship Specialty Start Date End Date Pilo Deras DO [address] [facility] 21 [place] [address] PCP - General Internal Medicine 12/28/23
--- OUTSIDE RECORDS SUMMARY | 2024-03-20 14:38 | XMS_ITS | Encounter Summary ---
Author Organization [facility] Address [address] [facility] [address] [place] [address] Care Team Providers Care Assistant Business Manager Name Role Phone Flynn Aviles MD Primary Care Provider [phone] Pilo Deras DO Primary Care Provider [phone] Encounter Details Date Type Department Care Team (Late st Contact Info) Description 07/06/2016 Orders Only [facility] ProviderMark MD [address] [place] [address] Social History Tobacco Use Types Packs/Day Years Used Date Smoking Tobacco: Never Assessed Comments Unknown Sex and Gender Information Value Date Recorded Sex Assigned at Not on file Legal Sex Female 4:59 AM CLOTHING SUPERVISOR Gender Identity Not on file Sexual Orientation [...] on filedocumented in this encounter Care Teams Assistant Business Manager Relationship Specialty Start Date End Date Flynn Aviles MD [address] [facility] 120 [place], [place] [phone] PCP - General 05/13/16 12/27/23 Pilo Deras DO [address] [facility] 21 [place], [place] [address] PCP - General Internal Medicine 12/28/23 documented as of this encounter
--- OUTSIDE RECORDS SUMMARY | 2024-03-20 14:38 | XMS_ITS | Encounter Summary ---
Author Organization [facility] Address [address] [place] [address] Phone Care Team Providers Care Dual Rate Supervisor Name Role Phone Flynn Aviles DO Primary Care Provider Reason for Visit * Reason Comments Med Refill Encounter Details Date Type Department Care Team (Late st Contact Info) Description 10/07/2020 Refill [facility] Nephrology and Hypertension [address] [facility], [address] [address] Lalo Sandoval MD [address] [facility] [place] [address] Social History Tobacco Use Types Packs/Day Years [...] on filedocumented in this encounter Care Teams Dual Rate Supervisor Relationship Specialty Start Date End Date Flynn Aviles DO [address] [facility] 21 [place] [address] PCP - General Internal Medicine 05/28/18 documented as of this encounter
--- OUTSIDE RECORDS SUMMARY | 2024-03-20 14:38 | XMS_ITS | Encounter Summary ---
Author Organization [facility] Address [address] [facility] [address] [place] [address] Care Team Providers Care Felt Finishing Supervisor Name Role Phone Flynn Aviles MD Primary Care Provider [phone] Pilo Deras DO Primary Care Provider [phone] Encounter Details Date Type Department Care Team (Late st Contact Info) Description 06/15/2016 Orders Only [facility] ProviderMark MD [address] [place] [address] Social History Tobacco Use Types Packs/Day Years Used Date Smoking Tobacco: Never Assessed Comments Unknown Sex and Gender Information Value Date Recorded Sex Assigned at Not on file Legal Sex Female 4:59 AM CONSUMER ELECTRONICS MERCHANDISER Gender Identity Not on file Sexual Orientation [...] on filedocumented in this encounter Care Teams Felt Finishing Supervisor Relationship Specialty Start Date End Date Flynn Aviles MD [address] [facility] 120 [place], [place] [phone] PCP - General 05/13/16 12/27/23 Pilo Deras DO [address] [facility] 21 [place], [place] [address] PCP - General Internal Medicine 12/28/23 documented as of this encounter
--- OUTSIDE RECORDS SUMMARY | 2024-03-20 14:38 | XMS_ITS | Clinical Summary ---
Author Organization [facility] [place] [address] Address [address] [place] [address] Care Team Providers Care Casting Supervisor Name Role Phone Pilo Deras DO Primary Care Provider [phone] Allergies Active Allergy Reactions Criticality Noted Date [...] Dx; CHB DOI 10/23/[address] Sol[address] [place] remote home monitor Q3 mo, Office pacer [...] Department Care Team Description 02/22/2024 Orders Only [facility] Cardiology [address] [place] [address] [place] [address] Deric Winkler MD Pacemaker (Primary Dx); Paroxysmal supraventricular tachycardia (HCC); Intermittent complete heart block (CMS/HCC) (HCC) 02/21/2024 7:00 AM SOCIAL SCIENCE RESEARCH ASSISTANT Ancillary Procedure [facility] [place] [facility] Cardiology [address] [place] [address] [place], [place] [address] [place] [address] NICM (nonischemic cardiomyopathy) (CMS/HCC) (HCC); ICD (implantable cardioverter-defibrilla tor) in place; Ventricular fibrillation (CMS/HCC) (HCC); NSVT (nonsustained ventricular tachycardia) (HCC) 01/10/2024 Orders Only [facility] Cardiology [address] [place] [address] ProviderMark MD 12/28/2023 11:00 AM SOCIAL SCIENCE RESEARCH ASSISTANT Office Visit [facility] Cardiology at [address] [place] [address] Deric Winkler MD Paroxysmal supraventricular tachycardia (HCC) (Primary Dx); Pacemaker; Intermittent complete heart block (CMS/HCC) (HCC); Stage 3 chronic kidney disease, unspecified whether stage 3a or 3b CKD (HCC); History of pulmonary embolism from Last 3 Months Surgical History Surgery Date Site/Laterality Comments APPENDECTOMY Appendectomy Medical History Medical History Date Comments Hx Other Medical dizziness; Comm ents: 09/11/2015 - Hx Other Medical 2007 right ankle fra cture; Comments: 09/11/2015 - [...] on file Legal Sex Female 4:59 AM SOCIAL SCIENCE RESEARCH ASSISTANT Gender Identity Not on file Sexual Orientation Not on file Obstetrics History Last Filed Vital Signs Vital Sign Reading Time Taken Comments Blood Pressure 104/62 12/28/2023 10:58 AM SOCIAL SCIENCE RESEARCH ASSISTANT Pulse 81 12/28/2023 10:58 AM SOCIAL SCIENCE RESEARCH ASSISTANT Temperature - - Respiratory Rate 16 11/16/2016 12:04 PM CDT Oxygen Saturation 99% 12/28/2023 10:58 AM SOCIAL SCIENCE RESEARCH ASSISTANT Inhaled Oxygen Concentration - - Weight 88.5 kg (195 lb) 12/28/2023 10:58 AM SOCIAL SCIENCE RESEARCH ASSISTANT Height 162.6 cm (5' 4 ) 12/28/2023 10:58 AM SOCIAL SCIENCE RESEARCH ASSISTANT Body Mass Index 33.47 12/28/2023 10:58 AM SOCIAL SCIENCE RESEARCH ASSISTANT Plan of Treatment Health Maintenance Due Date [...] history exists Medical Devices Implanted Type Area Human Resources Trainee Device Identifier Shelf Expiration Date Model / Serial / Lot Pacemaker-10/22 Implanted:10/2015 by Vivian Sol MD (Quantity not on file) Pacemaker Chest [facility] [employer] CHB ASSURITY [address] [place] / [id number] / Insurance MEDICARE IDPA MEDICARE [facility] Address: [address] [address] [place] [address] IDPA Care Teams Casting Supervisor Relationship Specialty Start Date End Date Pilo Deras DO [address] [facility] 21 [place], [place] [phone] PCP - General Internal Medicine 12/28/23
--- OUTSIDE RECORDS SUMMARY | 2024-03-20 14:38 | XMS_ITS | Encounter Summary ---
Author Organization [facility] Address [address] [facility] [address] [place] [address] Care Team Providers Care Lens And Frames Prescription Clerk Name Role Phone Flynn Aviles MD Primary Care Provider + [phone] Flynn Aviles MD Primary Care Provider + [phone] Pilo Deras DO Primary Care Provider [phone] Encounter Details Date Type Department Care Team (Late st Contact Info) Description 03/03/2016 Orders Only [facility] ProviderMark MD [address] [place] [address] Social History Tobacco Use Types Packs/Day Years Used Date Smoking Tobacco: Never Assessed Comments Unknown Sex and Gender Information Value Date Recorded Sex Assigned at Not on file Legal Sex Female 4:59 AM CONTAINER FILLER Gender Identity Not on file Sexual Orientation [...] on filedocumented in this encounter Care Teams Lens And Frames Prescription Clerk Relationship Specialty Start Date End Date Flynn Aviles MD [address] [facility] 120 [place] [address] PCP - General 05/13/16 12/27/23 Flynn Aviles MD [address] [facility] [address] [place] [address] PCP - General 03/03/16 05/12/16 Pilo Deras DO [address] [facility] [address] [place] [address] PCP - General Internal Medicine 12/28/23 documented as of this encounter
--- OUTSIDE RECORDS SUMMARY | 2024-03-20 14:38 | XMS_ITS | Clinical Summary ---
Author Organization [facility] Address [address] [place] [address] Phone Care Team Providers Care Cardiovascular Radiologic Technologist Name Role Phone Flynn Aviles Primary Care Provider [phone] Allergies Active Allergy Reactions Criticality Noted Date Comments Iodine Diarrhea 09/30/2018 Other reaction(s): Other (See comments) Reaction: d, t CKD, Penicillins Rash,Unknown Medium 05/31/2016 Medications Medication Sig [...] and oe with dinner 09/10/2011 Active Methylcobalamin (E96-WPOVUU) 1 MG chewable tablet 2 qod 0 [...] breakfast Active ergocalciferol (VITAMIN D2) 1.25 MG (96470 UT) capsule TAKE 1 CAPSULE BY MOUTH [...] 72 10/20/2021 9:50 AM CDT Temperature 34.9 C (94.9 F) 10/20/2021 9:50 AM CDT Respiratory Rate 14 08/15/2012 12:01 AM CDT [...] Vaccine (#1) 2023 11/13/2020, 2018 Care Teams Cardiovascular Radiologic Technologist Relationship Specialty Start Date End Date Flynn Aviles DO [address] [facility] 21 [place] [address] PCP - General Internal Medicine 05/28/18
--- OUTSIDE RECORDS SUMMARY | 2024-03-20 14:38 | XMS_ITS | Referral Summary ---
Author Organization [facility] Address [address] [place] [address] Care Team Providers Care Gambling Floor Supervisor Name Role Phone StefanFlynn Georgina DO Primary Care Provider [phone] Source Comments [facility],non-owned Affiliates and Associated Physician Practices is amultiple site organization consisting of ambulatory clinics and hospital sitesin [place], [place], [place] and [place]. This disclosure is being madepursuant to the Care Everywhere program and may not contain all information available regarding this patient. Last updated 17.[facility] Allergies Active Allergy Reactions Criticality Noted [...] 2 05/15/2016 Active vitamin D, ergocalciferol, (DRISDOL) 28285 UNITS capsule every 7 days 0 05/15/2016 [...] of Treatment Not on file Care Teams Gambling Floor Supervisor Relationship Specialty Start Date End Date Flynn Aviles DO [address] [place] [address] PCP - General Internal Medicine 11/25/15
--- OUTSIDE RECORDS SUMMARY | 2024-03-20 14:38 | XMS_ITS | Patient Health Summary ---
Author Organization [facility] Address [address] [facility] [place] [address] Care Team Providers Care Cook Frozen Dessert Name Role Phone StefanFlynn Georgina ONTIVEROS Primary Care Provider [phone] Note from [facility],non-owned Affiliates and Associated Physician Practices is amultiple site organization consisting of ambulatory clinics and hospital sitesin [place], [place], [place] and [place]. This disclosure is being madepursuant to the Care Everywhere program and may not contain all information available regarding this patient. Last updated 17.[facility] Allergies * Penicillins Medications * Be [...] refills left * vitamin D, ergocalciferol, (DRISDOL) 36991 UNITS capsule(Started 05/15/2016) every 7 days * [...] MD CARDIAC SERVICES OR DERABLES Care Teams Cook Frozen Dessert Relationship Specialty Start Date End Date Flynn Aviles DO [address] [facility] [address] PCP - General Internal Medicine 11/25/15
--- OUTSIDE RECORDS SUMMARY | 2024-03-20 14:38 | XMS_ITS | Encounter Summary ---
Author Organization [facility] Address [address] [facility] [address] [place] [address] Care Team Providers Care Laboratory Secretary Name Role Phone Flynn Aviles MD Primary Care Provider [phone] Flynn Aviles MD Primary Care Provider [phone] Flynn Aviles MD Primary Care Provider [phone] Pilo Deras DO Primary Care Provider [phone] Encounter Details Date Type Department Care Team (Late st Contact Info) Description 02/26/2016 Orders Only [facility] ProviderMark MD [address] [place] [address] Social History Tobacco Use Types Packs/Day Years Used Date Smoking Tobacco: Never Assessed Comments Unknown Sex and Gender Information Value Date Recorded Sex Assigned at Not on file Legal Sex Female 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 Gender Identity Not on file Sexual Orientation [...] on filedocumented in this encounter Care Teams Laboratory Secretary Relationship Specialty Start Date End Date Flynn Aviles MD [address] [facility] [address] [place] [address] PCP - General 05/13/16 12/27/23 Flynn Aviles MD [address] [facility] [address] [place] [address] PCP - General 03/03/16 05/12/16 Flynn Aviles MD [address] [facility] [address] [place] [address] PCP - General 02/17/16 03/02/16 Pilo Deras DO [address] [facility] [address] [place] [address] PCP - General Internal Medicine 12/28/23 documented as of this encounter
--- OUTSIDE RECORDS SUMMARY | 2024-03-20 14:38 | XMS_ITS | Clinical Summary ---
Author Organization [facility] Address [address] [facility] [address] Care Team Providers Care Bulk Sealer Operator Name Role Phone StefanFlynn DO Primary Care Provider [phone] Source Comments [facility],non-owned Affiliates and Associated Physician Practices is amultiple site organization consisting of ambulatory clinics and hospital sitesin [place], [place], [place] and [place]. This disclosure is being madepursuant to the Care Everywhere program and may not contain all information available regarding this patient. Last updated 17.[facility] [employer] Allergies Active Allergy Reactions Criticality Noted Date [...] 2 05/15/2016 Active vitamin D, ergocalciferol, (DRISDOL) 46241 UNITS capsule every 7 days 0 05/15/2016 [...] Comments BONE DENSITY TESTING 1940 MEDICARE AWV 12 MONTHS 1942 DTAP/TDAP/TD VACCINES (1 - [...] age to complete this topic Care Teams Bulk Sealer Operator Relationship Specialty Start Date End Date Flynn Aviles DO [address] [address] [place], [place] [id number] PCP - General Internal Medicine 11/25/15
--- OUTSIDE RECORDS SUMMARY | 2024-03-20 14:38 | XMS_ITS | Encounter Summary ---
Author Organization [facility] Address [address] [facility] [address] [place] [address] Care Team Providers Care Control Board Operator Name Role Phone Flynn Aviles MD Primary Care Provider + [phone] Flynn Aviles MD Primary Care Provider + [phone] Pilo Deras DO Primary Care Provider [phone] Encounter Details Date Type Department Care Team (Late st Contact Info) Description 04/06/2016 Orders Only [facility] ProviderMark MD [address] [place] [address] Social History Tobacco Use Types Packs/Day Years Used Date Smoking Tobacco: Never Assessed Comments Unknown Sex and Gender Information Value Date Recorded Sex Assigned at Not on file Legal Sex Female 4:59 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
--- OUTSIDE RECORDS SUMMARY | 2024-03-20 14:38 | XMS_ITS | Clinical Summary ---
Author Organization [facility] Address [address] [place] [address] Care Team Providers Care Loan Services Professional Name Role Phone Unavailable Primary Care Provider [...] - 1-dose 75+ series) 2017 COVID-19 Vaccine (2023-2 5 season) 2023 Influenza Adult (#1) 2023 Meningococcal B Vaccine Aged Out No l onger eligible based on patient's age to complete this topic Meningococcal Vaccine Aged Out No gardenia nola eligible based on patient's age to complete this topic RSV Immunizations Under 20 Months Aged Out No longer eligible based on patient's age to complete this topic
== END 2024-03-20 13:41 | disposition home or self-care (01) ==
PROVIDERS: PCP Internal Medicine; Visit Provider Internal Medicine
DX: R30.0 Dysuria (principal)
CPT/HCPCS: 81001

== ENCOUNTER 2024-04-01 12:53 | Outpatient (CLI) | payer MEDICARE, MEDICAID, SELFPAY ==
[2024-04-01 13:28] LABS: Anion Gap 13 mmol/L (4-12); Blood Urea Nitrogen 27 mg/dL (7-17); Calcium 9.1 mg/dL (8.4-10.2); Carbon Dioxide 21 mmol/L (22-30); Chloride 108 mmol/L (98-107); Estimated Glomerular Filt Rate 26; Glucose 95 mg/dL (65-110); Potassium 4.6 mmol/L (3.4-5.0); Sodium 142 mmol/L (137-145)
--- OUTSIDE RECORDS SUMMARY | 2024-04-01 15:16 | XMS_ITS | Clinical Summary ---
Author Organization [facility] [address] Address [address] [place] [address] Care Team Providers Care Tractor Mechanic Helper Name Role Phone Pilo Deras DO Primary Care Provider [phone] Allergies Active Allergy Reactions Criticality Noted Date [...] Department Care Team Description 02/22/2024 Orders Only [facility] [address] [place] [phone] Deric Winkler MD Pacemaker (Primary Dx); Paroxysmal supraventricular tachycardia (HCC); Intermittent complete heart block (CMS/HCC) (HCC) 02/21/2024 7:00 AM POWERTRAIN CONTROL SYSTEMS ENGINEER Ancillary Procedure [facility] [address] [place] [address] [address] [facility] [place] [address] Pacemaker (Primary Dx); NICM (nonischemic cardiomyopathy) (CMS/HCC) (HCC); ICD (implantable cardioverter-defibrilla tor) in place; Ventricular fibrillation (CMS/HCC) (HCC); NSVT (nonsustained ventricular tachycardia) (HCC); Intermittent complete heart block (CMS/HCC) (HCC) 01/10/2024 Orders Only [facility] Cardiology [address] [place] [address] Provider, MD Mark from Last 3 Months Surgical History Surgery [...] in; Comments: 09/11/2015 - Hx Other Medical 2000 Fatty liver; Co mments: 09/11/2015 - Hx [...] on file Legal Sex Female 4:59 AM POWERTRAIN CONTROL SYSTEMS ENGINEER Gender Identity Not on file Sexual Orientation Not on file Obstetrics History Last Filed Vital Signs Vital Sign Reading Time Taken Comments Blood Pressure 104/62 12/28/2023 10:58 AM POWERTRAIN CONTROL SYSTEMS ENGINEER Pulse 81 12/28/2023 10:58 AM POWERTRAIN CONTROL SYSTEMS ENGINEER Temperature - - Respiratory Rate 16 11/16/2016 12:04 PM CDT Oxygen Saturation 99% 12/28/2023 10:58 AM POWERTRAIN CONTROL SYSTEMS ENGINEER Inhaled Oxygen Concentration - - Weight 88.5 kg (195 lb) 12/28/2023 10:58 AM POWERTRAIN CONTROL SYSTEMS ENGINEER Height 162.6 cm (5' 4 ) 12/28/2023 10:58 AM POWERTRAIN CONTROL SYSTEMS ENGINEER Body Mass Index 33.47 12/28/2023 10:58 AM POWERTRAIN CONTROL SYSTEMS ENGINEER Plan of Treatment Health Maintenance Due Date [...] history exists Medical Devices Implanted Type Area Head Baker Device Identifier Shelf Expiration Date Model / Serial / Lot Pacemaker-10/22 Implanted:10/2015 by Vivian Sol MD (Quantity not on file) Pacemaker Chest [employer] [facility] ASSURITY [id number] / [id number] / Procedures Procedure Name Priority Date/Time Associated Diagnosis Comments DEVICE CHECK - REMOTE Routine 02/22/2024 7:55 AM POWERTRAIN CONTROL SYSTEMS ENGINEER NICM (nonischemic cardiomyopathy) (CMS/HCC) (HCC) ICD (implantable cardioverter-defibril lator) in place Ventricular fibrillation (CMS/HCC) (HCC) NSVT (nonsustained ventricular tachycardia) (HCC) from Last 3 Months Results * DEVICE CHECK - REMOTE (02/22/2024 7:55 AM POWERTRAIN CONTROL SYSTEMS ENGINEER) Anatomical Region Laterality Modality Other Narrative 03/27/2024 3:38 PM POWERTRAIN CONTROL SYSTEMS ENGINEER [employer] Dual Pacemaker Dx; CHB DOI 10/23/[address] Sol[address] Nehemias remote home monitor Q3 mo, Office pacer checks Q1 yr. Lead revision 02/26/2016. Battery Advisory. Routine DDD Pacemaker Remote. Transmission attached. Battery status: 2.90 V, 2.2 years remaining battery life to ADI. Stable lead impedances, pacing and sensing thresholds. Presenting rhythm: A paced/V sensed AP-27%, BAND TOP MAKER-2.9% 128 AMS episodes noted, longest episode was 10 seconds in duration, IEGM demonstrates AFib. AF Hawkeye < 1%. 11 Ventricular high rate episodes detected, IEGM demonstrates 2 episodes of AFib with RVR, and 9 episodes SVT. Longest HVR episode was 20 seconds in duration. Medications: Eliquis 5 mg, diltiazem 30 mg See scanned report. Office pacemaker follow up: 04/24/24 [place] remote f/u 5 months. Tushar Aguilar RN us Deric Winkler MD CV CARDIAC SERVICES [facility] Final Result from Last 3 Months Insurance MEDICARE [facility] MEDICARE IDPA Care Teams Tractor Mechanic Helper Relationship Specialty Start Date End Date Pilo Deras DO [address] [facility] 21 [place], [place] [address] PCP - General Internal Medicine 12/28/23
--- OUTSIDE RECORDS SUMMARY | 2024-04-01 15:16 | XMS_ITS | Clinical Summary ---
Author Organization [facility] Address [address] [place] [address] Phone Care Team Providers Care Crane Manager Name Role Phone Flynn Aviles Primary Care Provider [phone] Allergies Active Allergy Reactions Criticality Noted Date [...] and oe with dinner 09/10/2011 Active Methylcobalamin ([id number]) 1 MG chewable tablet 2 qod 0 [...] breakfast Active ergocalciferol (VITAMIN D2) 1.25 MG (82485 UT) capsule TAKE 1 CAPSULE BY MOUTH [...] Comments Pneumococcal PPSV23/PCV13 65 + Years / Low and Medium Risk (2 of 3 - PPSV23 or PCV20) 10/14/2018 10/14/2017 Influenza Vaccine (#1) 2023 11/13/2020, 2018 Care Teams Crane Manager Relationship Specialty Start Date End Date Flynn Aviles DO [address] [facility] 21 [place] [address] PCP - General Internal Medicine 05/28/18
--- OUTSIDE RECORDS SUMMARY | 2024-04-01 15:16 | XMS_ITS | Referral Summary ---
Author Organization [facility] [address] [facility] [address] Address [address] [place] [address] Care Team Providers Care Autocad Electrical Designer Name Role Phone Pilo Deras DO Primary Care Provider [phone] Encounters Date Type Department Care Team Description 02/22/2024 Orders Only [facility] Cardiology [address] [place] [address] [place] [address] Deric Winkler MD Pacemaker (Primary Dx); Paroxysmal supraventricular tachycardia (HCC); Intermittent complete heart block (CMS/HCC) (HCC) 02/21/2024 7:00 AM PASTE MIXING SUPERVISOR Ancillary Procedure [facility] [address] [place] [address] [place] [address] Pacemaker (Primary Dx); NICM (nonischemic cardiomyopathy) (CMS/HCC) (HCC); ICD (implantable cardioverter-defibrilla tor) in place; Ventricular fibrillation (CMS/HCC) (HCC); NSVT (nonsustained ventricular tachycardia) (HCC); Intermittent complete heart block (CMS/HCC) (HCC) 01/10/2024 Orders Only [facility] [address] [facility] [address] [place] [address] ProviderMark MD from Last 3 Months Allergies Active Allergy [...] on file Legal Sex Female 4:59 AM PASTE MIXING SUPERVISOR Gender Identity Not on file Sexual Orientation Not on file Last Filed Vital Signs Vital Sign Reading Time Taken Comments Blood Pressure 104/62 12/28/2023 10:58 AM PASTE MIXING SUPERVISOR Pulse 81 12/28/2023 10:58 AM PASTE MIXING SUPERVISOR Temperature - - Respiratory Rate 16 11/16/2016 12:04 PM CDT Oxygen Saturation 99% 12/28/2023 10:58 AM PASTE MIXING SUPERVISOR Inhaled Oxygen Concentration - - Weight 88.5 kg (195 lb) 12/28/2023 10:58 AM PASTE MIXING SUPERVISOR Height 162.6 cm (5' 4 ) 12/28/2023 10:58 AM PASTE MIXING SUPERVISOR Body Mass Index 33.47 12/28/2023 10:58 AM PASTE MIXING SUPERVISOR Plan of Treatment Not on file Medical Devices Implanted Type Area Associate Chief Nurse Device Identifier Shelf Expiration Date Model / Serial / Lot Pacemaker-10/22 Implanted:10/2015 by Vivian Sol MD (Quantity not on file) Pacemaker Chest [employer] [facility] ASSURITY 2240 / [id number] / Procedures Procedure Name Priority Date/Time Associated Diagnosis Comments DEVICE CHECK - REMOTE Routine 02/22/2024 7:55 AM PASTE MIXING SUPERVISOR NICM (nonischemic cardiomyopathy) (CMS/HCC) (HCC) ICD (implantable cardioverter-defibril lator) in place Ventricular fibrillation (CMS/HCC) (HCC) NSVT (nonsustained ventricular tachycardia) ([facility]) from Last 3 Months Results * DEVICE CHECK - REMOTE (02/22/2024 7:55 AM PASTE MIXING SUPERVISOR) Anatomical Region Laterality Modality Other Narrative 03/27/2024 3:38 [address]STE MIXING SUPERVISOR [employer] Dual Pacemaker Dx; CHB DOI 10/23/[address] Sol[address] Nehemias remote home monitor Q3 mo, Office pacer checks Q1 yr. Lead revision 02/26/2016. Battery Advisory. Routine DDD Pacemaker Remote. Transmission attached. Battery status: 2.90 V, 2.2 years remaining battery life to ADI. Stable lead impedances, pacing and sensing thresholds. Presenting rhythm: A paced/V sensed AP-27%, TELESALES REPRESENTATIVE-2.9% 128 AMS episodes noted, longest episode was 10 seconds in duration, IEGM demonstrates AFib. AF Pullman < 1%. 11 Ventricular high rate episodes detected, IEGM demonstrates 2 episodes of AFib with RVR, and 9 episodes SVT. Longest HVR episode was 20 seconds in duration. Medications: Eliquis 5 mg, diltiazem 30 mg See scanned report. Office pacemaker follow up: 04/24/24 [place] remote f/u 5 months. Tushar Aguilar RN Deric Winkler MD CV CARDIAC SERVICES [facility] Final Result from Last 3 Months Insurance MEDICARE [employer] MEDICARE IDPA Care Teams Autocad Electrical Designer Relationship Specialty Start Date End Date Pilo Deras DO [address] [place] [address] PCP - General Internal Medicine 12/28/23
--- OUTSIDE RECORDS SUMMARY | 2024-04-01 15:17 | XMS_ITS | Referral Summary ---
Author Organization [facility] Address [address] [facility] [place] [address] Care Team Providers Care Home Health Nurse Name Role Phone StefanFlynn Georgina DO Primary Care Provider [phone] Source Comments [facility],non-owned Affiliates and Associated Physician Practices is amultiple site organization consisting of ambulatory clinics and hospital sitesin [place], [place], [place] and [place]. This disclosure is being madepursuant to the Care Everywhere program and may not contain all information available regarding this patient. Last updated 17.[facility] Allergies Active Allergy Reactions Criticality Noted [...] 2 05/15/2016 Active vitamin D, ergocalciferol, (DRISDOL) 97568 UNITS capsule every 7 days 0 05/15/2016 [...] of Treatment Not on file Care Teams Home Health Nurse Relationship Specialty Start Date End Date Flynn Aviles DO [address] [facility] [address] [place] [address] PCP - General Internal Medicine 11/25/15
--- OUTSIDE RECORDS SUMMARY | 2024-04-01 15:17 | XMS_ITS | Encounter Summary ---
Author Organization [facility] Address [address] [facility] [address] [place] [address] Care Team Providers Care Outside Sales Executive Name Role Phone Flynn Aviles MD Primary Care Provider [phone] Pilo Deras DO Primary Care Provider [phone] Encounter Details Date Type Department Care Team (Late st Contact Info) Description 06/15/2016 Orders Only [facility] ProviderMark MD [address] [place] [address] Social History Tobacco Use Types Packs/Day Years Used Date Smoking Tobacco: Never Assessed Comments Unknown Sex and Gender Information Value Date Recorded Sex Assigned at Not on file Legal Sex Female 4:59 AM HR ADMINISTRATIVE ASSISTANT Gender Identity Not on file Sexual [...] on filedocumented in this encounter Care Teams Outside Sales Executive Relationship Specialty Start Date End Date Flynn Aviles MD [address] [facility] 120 [place], [place] [phone] PCP - General 05/13/16 12/27/23 Pilo Deras DO [address] [facility] 21 [place], [place] [phone] PCP - General Internal Medicine 12/28/23 documented as of this encounter
--- OUTSIDE RECORDS SUMMARY | 2024-04-01 15:17 | XMS_ITS | Encounter Summary ---
Author Organization [facility] Address [address] [facility] [address] [place] [address] Care Team Providers Care Over Short And Damage Clerk Name Role Phone Flynn Aviles MD Primary Care Provider + [phone] Flynn Aviles MD Primary Care Provider + [phone] Pilo Deras DO Primary Care Provider [phone] Encounter Details Date Type Department Care Team (Late st Contact Info) Description 03/03/2016 Orders Only [facility] ProviderMark MD [address] [place] [address] Social History Tobacco Use Types Packs/Day Years Used Date Smoking Tobacco: Never Assessed Comments Unknown Sex and Gender Information Value Date Recorded Sex Assigned at Not on file Legal Sex Female 4:59 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
--- OUTSIDE RECORDS SUMMARY | 2024-04-01 15:17 | XMS_ITS | Encounter Summary ---
Author Organization [facility] Address [address] [facility] [address] [place] [address] Care Team Providers Care Local Telephone Operator Name Role Phone Flynn Aviles MD Primary Care Provider [phone] Pilo Deras DO Primary Care Provider [phone] Encounter Details Date Type Department Care Team (Late st Contact Info) Description 07/06/2016 Orders Only [facility] ProviderMark MD [address] [place] [address] Social History Tobacco Use Types Packs/Day Years Used Date Smoking Tobacco: Never Assessed Comments Unknown Sex and Gender Information Value Date Recorded Sex Assigned at Not on file Legal Sex Female 4:59 AM DRUM STRAIGHTENER Gender Identity Not on file Sexual Orientation [...] on filedocumented in this encounter Care Teams Local Telephone Operator Relationship Specialty Start Date End Date Flynn Aviles MD [address] [facility] 120 [place], [place] [id number] PCP - General 05/13/16 12/27/23 Pilo Deras DO [address] [facility] 21 [place], [place] [phone] PCP - General Internal Medicine 12/28/23 documented as of this encounter
--- OUTSIDE RECORDS SUMMARY | 2024-04-01 15:17 | XMS_ITS | Encounter Summary ---
Author Organization [facility] Address [address] [facility] [address] [place] [address] Care Team Providers Care School Psychology Professor Name Role Phone Flynn Aviles MD Primary Care Provider + [phone] Flynn Aviles MD Primary Care Provider + [phone] Pilo Deras DO Primary Care Provider [phone] Encounter Details Date Type Department Care Team (Late st Contact Info) Description 04/06/2016 Orders Only [facility] ProviderMark MD [address] [place] [address] Social History Tobacco Use Types Packs/Day Years Used Date Smoking Tobacco: Never Assessed Comments Unknown Sex and Gender Information Value Date Recorded Sex Assigned at Not on file Legal Sex Female 4:59 AM NURSE RESEARCH Gender Identity Not on file Sexual Orientation [...] on filedocumented in this encounter Care Teams School Psychology Professor Relationship Specialty Start Date End Date Flynn Aviles MD [address] [facility] 120 [place] [address] PCP - General 05/13/16 12/27/23 Flynn Aviles MD [address] [place] [address] PCP - General 03/03/16 05/12/16 Pilo Deras DO [address] [place] [address] PCP - General Internal Medicine 12/28/23 documented as of this encounter
--- OUTSIDE RECORDS SUMMARY | 2024-04-01 15:17 | XMS_ITS | Encounter Summary ---
Author Organization [facility] Address [address] [facility] [address] [place] [address] Care Team Providers Care Yardmaster Name Role Phone Flynn Aviles MD Primary Care Provider [phone] Flynn Aviles MD Primary Care Provider [phone] Flynn Aviles MD Primary Care Provider [phone] Pilo Deras DO Primary Care Provider [phone] Encounter Details Date Type Department Care Team (Late st Contact Info) Description 02/26/2016 Orders Only [facility] ProviderMark MD [address] [place] [address] Social History Tobacco Use Types Packs/Day Years Used Date Smoking Tobacco: Never Assessed Comments Unknown Sex and Gender Information Value Date Recorded Sex Assigned at Not on file Legal Sex Female 4:59 AM CONSTRUCTION LINEMAN Gender Identity Not on file Sexual Orientation [...] on filedocumented in this encounter Care Teams Yardmaster Relationship Specialty Start Date End Date Flynn Aviles MD [address] [facility] 120 [place] [address] PCP - General 05/13/16 12/27/23 Flynn Aviles MD [address] [facility] 120 [place] [address] PCP - General 03/03/16 05/12/16 Flynn Aviles MD [address] [facility] 120 [place] [address] PCP - General 02/17/16 03/02/16 Pilo Deras DO [address] [facility] 21 [place] [address] PCP - General Internal Medicine 12/28/23 documented as of this encounter
--- OUTSIDE RECORDS SUMMARY | 2024-04-01 15:17 | XMS_ITS | Encounter Summary ---
Author Organization [facility] Address [address] [place] [address] Phone Care Team Providers Care Communication Professor Name Role Phone Flynn Aviles DO Primary Care Provider [phone] Reason for Visit * Reason Comments Med Refill Encounter Details Date Type Department Care Team (Late st Contact Info) Description 10/07/2020 Refill [facility] Nephrology and Hypertension [address] [facility], [address] [address] Lalo Sandoval MD [address] [facility] [place] [address] Social History Tobacco Use Types Packs/Day Years [...] on filedocumented in this encounter Care Teams Communication Professor Relationship Specialty Start Date End Date Flynn Aviles DO [address] [facility] 21 [place] [address] PCP - General Internal Medicine 05/28/18 documented as of this encounter
--- OUTSIDE RECORDS SUMMARY | 2024-04-01 15:17 | XMS_ITS | Clinical Summary ---
Author Organization [facility] Address [address] [place] [address] Care Team Providers Care Envelope Folding Machine Adjuster Name Role Phone Unavailable Primary Care Provider [...]
--- OUTSIDE RECORDS SUMMARY | 2024-04-01 15:17 | XMS_ITS | Encounter Summary ---
Author Organization [facility] Address [address] [facility] [address] [place] [address] Care Team Providers Care Liquefaction And Regasification Helper Name Role Phone Flynn Aviles MD Primary Care Provider + [phone] Flynn Aviles MD Primary Care Provider + [phone] Pilo Deras DO Primary Care Provider [phone] Encounter Details Date Type Department Care Team (Late st Contact Info) Description 04/19/2016 Orders Only [facility] ProviderMark MD [address] [place] [address] Social History Tobacco Use Types Packs/Day Years Used Date Smoking Tobacco: Never Assessed Comments Unknown Sex and Gender Information Value Date Recorded Sex Assigned at Not on file Legal Sex Female 4:59 AM FORENSICS TEAM DIRECTOR Gender Identity Not on file Sexual Orientation [...] on filedocumented in this encounter Care Teams Liquefaction And Regasification Helper Relationship Specialty Start Date End Date Flynn Aviles MD [address] [facility] 120 [place] [address] PCP - General 05/13/16 12/27/23 Flynn Aviles MD [address] [facility] [address] [place] [address] PCP - General 03/03/16 05/12/16 Pilo Deras DO [address] [facility] [address] [place] [address] PCP - General Internal Medicine 12/28/23 documented as of this encounter
--- OUTSIDE RECORDS SUMMARY | 2024-04-01 15:17 | XMS_ITS | Encounter Summary ---
Author Organization [facility] Medical [facility] Address [address] [facility] [address] [place] [address] Care Team Providers Care State Trooper Name Role Phone Flynn Aviles MD Primary Care Provider [phone] Flynn Aviles MD Primary Care Provider [phone] Flynn Aviles MD Primary Care Provider [phone]- [phone] Pilo Deras DO Primary Care Provider [phone] Encounter Details Date Type Department Care Team (Late st Contact Info) Description 02/17/2016 Orders Only [facility] ProviderMark MD [address] [place] [address] Social History Tobacco Use Types Packs/Day Years Used Date Smoking Tobacco: Never Assessed Comments Unknown Sex and Gender Information Value Date Recorded Sex Assigned at Not on file 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 Gender Identity Not on file Sexual Orientation [...] on filedocumented in this encounter Care Teams State Trooper Relationship Specialty Start Date End Date Flynn Aviles MD [address] [facility] 120 [place] [address] PCP - General 05/13/16 12/27/23 Flynn Aviles MD [address] [facility] 120 [place] [address] PCP - General 03/03/16 05/12/16 Flynn Aviles MD [address] [facility] 120 [place] [address] PCP - General 02/17/16 03/02/16 Pilo Deras DO [address] [facility] 21 [place] [address] PCP - General Internal Medicine 12/28/23 documented as of this encounter
--- OUTSIDE RECORDS SUMMARY | 2024-04-01 15:17 | XMS_ITS | Patient Health Summary ---
Author Organization [facility] Address [address] [facility] [place] [address] Care Team Providers Care Log Cut Off Sawyer Name Role Phone StefanFlynn Georgina ONTIVEROS Primary Care Provider [phone] Note from [facility],non-owned Affiliates and Associated Physician Practices is amultiple site organization consisting of ambulatory clinics and hospital sitesin [place], [place], [place] and [place]. This disclosure is being madepursuant to the Care Everywhere program and may not contain all information available regarding this patient. Last updated 17.[facility] Allergies * Penicillins Medications * Be aware [...] refills left * vitamin D, ergocalciferol, (DRISDOL) 89918 UNITS capsule(Started 05/15/2016) every 7 days * [...] MD CARDIAC SERVICES OR DERABLES Care Teams Log Cut Off Sawyer Relationship Specialty Start Date End Date Flynn Aviles DO [address] [facility] [address] [address] PCP - General Internal Medicine 11/25/15
--- OUTSIDE RECORDS SUMMARY | 2024-04-01 15:17 | XMS_ITS | Clinical Summary ---
Author Organization [facility] Address [address] [facility] [place] [address] Care Team Providers Care Supervisor Inspecting Name Role Phone StefanFlynn DO Primary Care Provider [phone] Source Comments [facility],non-owned Affiliates and Associated Physician Practices is amultiple site organization consisting of ambulatory clinics and hospital sitesin [place], [place], [place] and [place]. This disclosure is being madepursuant to the Care Everywhere program and may not contain all information available regarding this patient. Last updated 17.[facility] Allergies Active Allergy Reactions Criticality Noted Date [...] 2 05/15/2016 Active vitamin D, ergocalciferol, (DRISDOL) 79276 UNITS capsule every 7 days 0 05/15/2016 [...] age to complete this topic Care Teams Supervisor Inspecting Relationship Specialty Start Date End Date Flynn Aviles DO [address] [facility] [address] [place], [place] [address] PCP - General Internal Medicine 11/25/15
== END 2024-04-01 12:54 | disposition home or self-care (01) ==
LOC: ANHLAB 12:55
PROVIDERS: PCP Internal Medicine; Visit Provider Internal Medicine Nephrology
DX: N18.4 Chronic kidney disease, stage 4 (severe) (principal)
CPT/HCPCS: 36415; 80048

== ENCOUNTER 2024-07-10 13:19 | Outpatient (CLI) | payer MEDICARE, MEDICAID, SELFPAY ==
--- OUTSIDE RECORDS SUMMARY | 2024-07-10 13:30 | XMS_ITS | Referral Summary ---
Author Organization [facility] [address] [facility] [address] Address [address] [place] [address] Care Team Providers Care Saddle Maker Name Role Phone Pilo Deras DO Primary Care Provider [phone] Encounters Date Type Department Care Team Description 07/02/2024 3:15 PM CDT Office Visit [facility] Cardiology at [address] [place] [address] Deric Winkler MD Paroxysmal supraventricular tachycardia (Primary Dx); Pacemaker; Intermittent complete heart block (HCC); Stage 3 chronic kidney disease, unspecified whether stage 3a or 3b CKD (HCC); History of pulmonary embolism 04/24/2024 2:00 PM CDT Ancillary Procedure [facility] [address] [place] [address] Complete atrioventricular block (HCC); Pacemaker; Paroxysmal supraventricular tachycardia from Last 3 Months Allergies Active Allergy [...] (CARDIZEM) 30 mg tabletIndications:Pa roxysmal supraventricular tachycardia TAKE 1 TABLET BY MOUTH TWICE A DAY 180 tablet 3 12/28/[address] (PROTONIX) 40 mg EC tablet Take 1 tablet (40 mg total) by mouth daily Active sucralfate (CARAFATE) suspension 1 gram/10 mL Take by mouth 4 (four) times a day Active vit A/vit C/vit E/zinc/copper (PRESERVISION AREDS ORAL) Take by mouth Active apixaban (ELIQUIS) 5 mg tablet Take 1 tablet (5 mg total) by mouth 2 (two) times a day 025 Discontin ued(Thera py completed ) Active Problems Problem Noted Date Diagnosed Date [...] 02/26/2016. Battery Advisory. 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 Gender Identity Not on file Sexual Orientation Not on file Last Filed Vital Signs Vital Sign Reading Time Taken Comments Blood Pressure 130/84 07/02/2024 2:32 PM CDT Pulse 81 07/02/2024 2:32 PM CDT Temperature - - Respiratory Rate 16 11/16/2016 12:04 PM CDT Oxygen Saturation 99% 07/02/2024 2:32 PM CDT Inhaled Oxygen Concentration - - Weight 86.6 kg (191 lb) 07/02/2024 2:32 PM CDT Height 162.6 cm (5' 4) 07/02/2024 2:32 PM CDT Body Mass Index 32.79 07/02/2024 2:32 PM CDT Plan of Treatment Not on file Medical Devices Implanted Type Area Cooling Pan Tender Device Identifier Shelf Expiration Date Model / Serial / Lot Pacemaker-10/22 Implanted:10/2015 by Vivian Sol MD (Quantity not on file) Pacemaker Chest [employer] CHB ASSURITY 2240 / [id number] / Procedures Procedure Name Priority Date/Time Associated Diagnosis Comments DEVICE CHECK - IN OFFICE Routine 04/24/2024 1:08 PM CDT Complete atrioventricular block (HCC) Pacemaker Paroxysmal supraventricular tachycardia from Last 3 Months Results * DEVICE CHECK - IN OFFICE (04/24/2024 1:08 PM CDT) Anatomical Region Laterality Modality Other Narrative 04/25/2024 1:[address] [employer] Dual Pacemaker Dx; CHB DOI 10/23/[address] Sol[address] Nehemias remote home monitor Q3 mo, Office pacer checks Q1 yr. Battery Advisory. Supervising MD: Dr Winkler. Office DDD Pacemaker check today demonstrated normal device function. Left pectoral incision well healed without signs of infection noted. Battery 2.89V, 2.0 years remaining battery life to ADI. Appropriate lead measurements noted. Presenting rhythm-ASVS (SR) 72 bpm. Weight 189.9 lbs.. AP-24%, ELECTRONIC SECURITY SPECIALIST-3%. 87-mode switch episodes noted, iegm's ST-SVT 120->160 bpm. (1) AHR episode Afib noted on 02/14/2024, 10 second duration. 51-ventricular high rate episodes noted and 258 since 02/01/2023. IEGM's SVT 180-194 bpm. (1) NSVT episode noted on 04/19/2024, 7 beat duration @ 187 bpm. Medications; Eliquis, Cardizem. No programming changes made to device settings. See scanned report. [place] remote f/u 07/30/2024. Office pacemaker f/u 05/28/2025. Fidelina Brown RN us Vivian Sol MD CV CARDIAC SERVICES PROCEDU RES Final Result from Last 3 Months Insurance MEDICARE [facility] MEDICARE [facility] Care Teams Saddle Maker Relationship Specialty Start Date End Date Pilo Deras DO [address] [place] [address] PCP - General Internal Medicine 12/28/23
--- OUTSIDE RECORDS SUMMARY | 2024-07-10 13:30 | XMS_ITS | Clinical Summary ---
Author Organization [facility] Address [address] [place] [address] Phone Care Team Providers Care Licensed Tax Consultant Name Role Phone Flynn Aviles Primary Care Provider [phone] Allergies Active Allergy Reactions Criticality Noted Date Comments Iodine Diarrhea 09/30/2018 Other reaction(s): Other (See comments) Reaction: d, t CKD, Penicillins Rash,Unknown Medium 05/31/2016 Medications Multiple Vitamin (MULTIVITAMIN) capsule 1 w breakfast 2 Active docusate sodium (COLACE) 100 MG capsule 2 Active ALPRAZolam (XANAX) 0.5 MG tablet prn. 3 Active Eszopiclone (LUNESTA) 2 MG tablet hs prn 0 6 Active fluticasone (FLONASE ALLERGY RELIEF) 50 MCG/ACT nasal spray 1 prn 0 7 Active bisacodyl (DULCOLAX) 5 MG EC tablet 2 prn 0 7 Active Cetirizine HCl (ZyrTEC ALLERGY) 10 MG capsule 1 capsule (10 mg) orally daily as needed 0 7 Active Linaclotide (LINZESS) 72 MCG capsule 1 capsule (72 mcg) orally daily on an empty stomach before first mealof the day as needed 0 7 Active calcium carbonate (OS-MARY) 600 MG tablet 1with lunch and oe with dinner 2 Active Methylcobalamin (L29-XNECIC) 1 MG chewable tablet 2 qod 0 6 Active levothyroxine (SYNTHROID, LEVOTHROID) 25 MCG tablet Take 25 mcg by mouth 1 (one) time each day 0 Active carboxymethylcel lulose (Refresh Liquigel) 1 % gel OPHTHalmic solution dropperette Apply 1 drop to affected eye(s) Active dilTIAZem (CARDIZEM) 30 MG immediate release tablet Take 30 mg by mouth 2 (two) times a day 1 Active famotidine (PEPCID) 20 MG tablet Take 1 tablet (20 mg total) by mouth 1 (one) time each day 90 tablet 3 1 Active ferrous sulfate 325 (65 Fe) MG tablet Take 325 mg by mouth 1 (one) time each day with breakfast Active ergocalciferol (VITAMIN D2) 1.25 MG (56610 UT) capsule TAKE 1 CAPSULE BY MOUTH 1 (ONE) TIME PER WEEK 12 capsule 4 2 Active calcitriol (ROCALTROL) 0.5 MCG capsule TAKE 1 CAPSULE BY MOUTH 1 (ONE) TIME EACH DAY 90 capsule 3 2 Active Active Problems Problem Noted Date Diagnosed [...] 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 Immunizations Immunization Administration Dates Next Due Influenza TIV (IM) [...] at Not on file Legal Sex Female 8:16 AM [facility] Gender Identity Not on file Sexual Orientation [...] 9:50 AM CDT Height 162.6 cm (5' 4) 10/20/2021 9:50 AM CDT Body Mass Index 33.81 10/20/2021 9:50 AM CDT Plan of Treatment Health Maintenance Due Date Last Done Comments Pneumococcal PPSV23/PCV13 65 + Years / Low and Medium Risk (2 of 3 - PPSV23) 10/14/2018 10/14/2017 Influenza Vaccine (Season Ended) 2024 11/14/19 21, 11/30/2018 Insurance MEDICARE [place]ICAID - [place] Care Teams Licensed Tax Consultant Relationship Specialty Start Date End Date Flynn AvilesDO [address] [facility] 21 [place] [address] PCP - General Internal Medicine 05/28/18
--- OUTSIDE RECORDS SUMMARY | 2024-07-10 13:30 | XMS_ITS | Clinical Summary ---
Author Organization [facility] [place] [address] Address [address] [place] [address] Care Team Providers Care Tile Edger Name Role Phone Pilo Deras DO Primary Care Provider [phone] Allergies Active Allergy Reactions Criticality Noted Date [...] Dx; CHB DOI 10/23/[address] Sol[address] Robbins remote home monitor Q3 mo, Office pacer [...] Description 07/02/2024 3:15 PM CDT Office Visit [facility] Medical Group Cardiology at [address] [place] [address] Deric Winkler MD Paroxysmal supraventricular tachycardia (Primary Dx); Pacemaker; Intermittent complete heart block (HCC); Stage 3 chronic kidney disease, unspecified whether stage 3a or 3b CKD (HCC); History of pulmonary embolism 04/24/2024 2:00 PM CDT Ancillary Procedure [facility] Cardiology [address] [place] [address] Complete atrioventricular block (HCC); Pacemaker; Paroxysmal supraventricular tachycardia from Last 3 Months Surgical History Surgery Date Site/Laterality Comments APPENDECTOMY Appendectomy Medical History Medical History Date Comments Hx Other Medical dizziness; Comm ents: [facility] 09/11/2015 - Hx Other Medical 2008 right ankle fra cture; Comments: [facility] 09/11/2015 - Hx Other Medical 2002 hip surgery; Co mments: [facility] 09/11/2015 - Hx Other Medical 2004 gastric bypass; Comments: [facility] 09/11/2015 - Gastroesophageal reflux disease GERD Hx Other Medical fibromyalgia; C omments: [facility] 09/11/2015 - Hx Other Medical chronic back pa in; Comments: [facility] 09/11/2015 - Hx Other Medical 2000 Fatty liver; Co mments: [facility] 09/11/2015 - Hx Other Medical Thyroid diz; Co mments: [facility] 09/11/2015 - Osteoarthritis Osteoarthritis; Comments: [facility] 09/11/2015 - Hx Other Medical Questionable ad renal insufficiency; Comments: [facility] 09/11/2015 - Family History Medical History Relation [...] on file 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 Gender Identity Not on file Sexual Orientation [...] 07/02/2024 2:32 PM CDT Plan of Treatment Health Maintenance Due Date Last Done Comments Depression Screening 1942 Fall Risk Assessment 1942 Osteoporosis Screening-Bone Density Scan 1942 DTaP/Tdap/Td Vaccine (1 - Tdap) 1953 Hepatitis B Screening 1960 Zoster Vaccine (1 of 2) 1992 Well Visit 65+ 06/06/2007 Pneumococcal vaccine 65+ (2 of 2 - PPSV23) 10/14/2018 10/14/2017, 10/14/2016, 11/07/2014 Influenza Vaccine (Season Ended) 2024 11/13/2020, 11/30/2018, 11/14/2017, Additional history exists Medical Devices Implanted Type Area Brim Rounder Device Identifier Shelf Expiration Date Model / Serial / Lot Pacemaker-10/22 Implanted:10/2015 by Vivian Sol MD (Quantity not on file) Pacemaker Chest [employer] CHB ASSURITY 2240 / [id number] / Procedures Procedure Name Priority Date/Time Associated Diagnosis Comments DEVICE CHECK - IN OFFICE Routine 04/24/2024 1:08 PM CDT Complete atrioventricular block (HCC) Pacemaker Paroxysmal supraventricular tachycardia from Last 3 Months Results * DEVICE CHECK - IN OFFICE (04/24/2024 1:08 PM CDT) Anatomical Region Laterality Modality Other Narrative 04/25/2024 1:[address] [employer] Dual Pacemaker Dx; CHB DOI 10/23/[address] Sol[address] Robbins remote home monitor Q3 mo, Office pacer checks Q1 yr. Battery Advisory. Supervising MD: Dr Winkler. Office DDD Pacemaker check today demonstrated normal device function. Left pectoral incision well healed without signs of infection noted. Battery 2.89V, 2.0 years remaining battery life to ADI. Appropriate lead measurements noted. Presenting rhythm-ASVS (SR) 72 bpm. Weight 189.9 lbs.. AP-24%, FIBERGLASS GRINDER-3%. 87-mode switch episodes noted, iegm's ST-SVT 120->160 bpm. (1) AHR episode Afib noted on 02/14/2024, 10 second duration. 51-ventricular high rate episodes noted and 258 since 02/01/2023. IEGM's SVT 180-194 bpm. (1) NSVT episode noted on 04/19/2024, 7 beat duration @ 187 bpm. Medications; Eliquis, Cardizem. No programming changes made to device settings. See scanned report. Robbins remote f/u 07/30/2024. Office pacemaker f/u 05/28/2025. Fidelina Brown, [place] Vivian Sol MD CV CARDIAC SERVICES PROCEDU RES Final Result from Last 3 Months Insurance MEDICARE [facility] MEDICARE ID[employer] Care Teams Tile Edger Relationship Specialty Start Date End Date Pilo Deras DO [address] [facility] 21 [place] [address] PCP - General Internal Medicine 12/28/23
--- OUTSIDE RECORDS SUMMARY | 2024-07-10 13:30 | XMS_ITS | Clinical Summary ---
Author Organization [facility] Address [address] [facility] [place] [address] Care Team Providers Care Legal Cashier Name Role Phone StefanFlynn Georgina DO Primary Care Provider [phone] Source Comments [facility],non-owned Affiliates and Associated Physician Practices is amultiple site organization consisting of ambulatory clinics and hospital sitesin [place], [place], [place] and [place]. This disclosure is being madepursuant to the Care Everywhere program and may not contain all information available regarding this patient. Last updated 17.[facility] [employer] [employer] Allergies Active Allergy Reactions Criticality Noted Date Comments Penicillins 05/31/2016 Medications * Be aware that medications may not be up to date on this document. Alwaysverify current medications with the patient. ALPRAZolam (XANAX) 0.5 MG tablet Take 0.5 mg by mouth nightly as needed 0 7 Active calcitriol (ROCALTROL) 0.5 MCG capsule Take 0.5 mcg by mouth once daily 3 7 Active digoxin (LANOXIN) 0.125 MG tablet Take 0.125 mg by mouth once daily 2 7 Active vitamin D, ergocalciferol, (DRISDOL) 66203 UNITS capsule every 7 days 0 7 Active eszopiclone (LUNESTA) 2 MG tablet Take 2 mg by mouth nightly as needed 3 7 Active fluticasone propionate (FLONASE) 50 MCG/ACT nasal spray 2 times daily 3 7 Active cetirizine (ZYRTEC ALLERGY) 10 MG tablet [...] = 0.6 oz pur e alcohol) Comments No Sex and Gender Information Value Date Recorded Sex Assigned at Not on file Legal Sex Female 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 Gender Identity Not on file Sexual Orientation Not on file Occupation Industry Job Start Date Job End Date Retired Not on file Not on file Not on file Last Filed Vital Signs Vital Sign Reading Time Taken Comments Blood Pressure 125/73 05/31/2016 4:18 PM CDT Pulse 75 05/31/2016 4:18 PM CDT Temperature - - Respiratory Rate - - Oxygen Saturation - - Inhaled Oxygen Concentration - - Weight 74.8 kg (165 lb) 05/31/2016 4:18 PM CDT Height 158.8 cm (5' 2.5) 05/31/2016 4:18 PM CDT Body Mass Index [...] COVID-19 VACCINE (1 - 2023- season) 2023 DEPRESSION SCREENING 02/14/2024 INFLUENZA VACCINE (Season Ended) 2024 11/08/2015, 11/05/2013, 11/16/2012, Additional history exists HEPATITIS B VACCINE Aged Out No longe r eligible based on patient's age to complete this topic HIB VACCINE Aged Out No longer eligi ble based on patient's age to complete this topic HPV VACCINE Aged Out No longer eligi ble based on patient's age to complete this topic MENINGOCOCCAL (Group B) VACCINE SHARED DECISION-MAKING Aged Out No longer eligible based on patient's age to complete this topic MENINGOCOCCAL GROUPS A/C/Y/W VACCINE Aged Out No longer eligible based on patient's age to complete this topic Insurance MEDICARE MEDICAID - [place] SELF PAY NO INSURANCE Member Subscriber Plan / Payer (Ef fective for All Dates) Name:Jamir Gómez Member ID:Not on file Relation to Subscriber:Not on file Name:JAMIR GÓMEZ Subscriber ID:Not on file (Home) Address: [address] [place] [address] Payer ID:Not on file Group ID:Not on file Type:Self Pay Address: [place], [place] Care Teams Legal Cashier Relationship Specialty Start Date End Date Flynn Aviles DO [address] [facility] [address] [place], [place] [id number] PCP - General Internal Medicine 11/25/15
--- OUTSIDE RECORDS SUMMARY | 2024-07-10 13:31 | XMS_ITS | Encounter Summary ---
Author Organization [facility] Address [address] [facility] [address] [place] [address] Care Team Providers Care Floor Scraper Name Role Phone Flynn Aviles MD Primary Care Provider +1- [phone] Flynn Aviles MD Primary Care Provider +[phone]- [phone] Flynn Aviles MD Primary Care Provider +[phone]- [phone] Pilo Deras DO Primary Care Provider [phone] Encounter Details Date Type Department Care Team (Late st Contact Info) Description 02/17/2016 Orders Only [facility] ProviderMark MD [address] [place] [address] Social History Tobacco Use Types Packs/Day Years Used Date Smoking Tobacco: Never Assessed Comments Unknown Sex and Gender Information Value Date Recorded Sex Assigned at Not on file Legal Sex Female 4:59 AM MULESER Gender Identity Not on file Sexual Orientation [...] on filedocumented in this encounter Care Teams Floor Scraper Relationship Specialty Start Date End Date Flynn Aviles MD [address] [facility] 120 [place] [address] PCP - General 05/13/16 12/27/23 Flynn Aviles MD [address] [facility] 120 [place] [address] PCP - General 03/03/16 05/12/16 Flynn Aviles MD [address] [facility] 120 [place] [address] PCP - General 02/17/16 03/02/16 Pilo Deras DO [address] [facility] 21 [place] [address] PCP - General Internal Medicine 12/28/23 documented as of this encounter
--- OUTSIDE RECORDS SUMMARY | 2024-07-10 13:31 | XMS_ITS | Encounter Summary ---
Author Organization [facility] Address [address] [facility] [address] [place] [address] Care Team Providers Care Scarifier Operator Name Role Phone Flynn Aviles MD Primary Care Provider + [phone] Flynn Aviles MD Primary Care Provider + [phone] Pilo Deras DO Primary Care Provider +[phone] Encounter Details Date Type Department Care Team (Late st Contact Info) Description 04/19/2016 Orders Only [facility] ProviderMark MD [address] [place] [address] Social History Tobacco Use Types Packs/Day Years Used Date Smoking Tobacco: Never Assessed Comments Unknown Sex and Gender Information Value Date Recorded Sex Assigned at Not on file 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
--- OUTSIDE RECORDS SUMMARY | 2024-07-10 13:31 | XMS_ITS | Encounter Summary ---
Author Organization [facility] Address [address] [facility] [address] [place] [address] Care Team Providers Care Quality Control Expert Name Role Phone Flynn Aviles MD Primary Care Provider +[phone]- [phone] Flynn Aviles MD Primary Care Provider +[phone]- [phone] Flynn Aviles MD Primary Care Provider +[phone]- [phone] Pilo Deras DO Primary Care Provider [phone] Encounter Details Date Type Department Care Team (Late st Contact Info) Description 02/26/2016 Orders Only [facility] ProviderMark MD [address] [place] [address] Social History Tobacco Use Types Packs/Day Years Used Date Smoking Tobacco: Never Assessed Comments Unknown Sex and Gender Information Value Date Recorded Sex Assigned at Not on file 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 Gender Identity Not on file Sexual [...] on filedocumented in this encounter Care Teams Quality Control Expert Relationship Specialty Start Date End Date Flynn Aviles MD [address] [facility] 120 [place] [address] PCP - General 05/13/16 12/27/23 Flynn Aviles MD [address] [facility] 120 [place] [address] PCP - General 03/03/16 05/12/16 Flynn Aviles MD [address] [facility] 120 [place] [address] PCP - General 02/17/16 03/02/16 Pilo Deras DO [address] [facility] 21 [place] [address] PCP - General Internal Medicine 12/28/23 documented as of this encounter
--- OUTSIDE RECORDS SUMMARY | 2024-07-10 13:31 | XMS_ITS | Encounter Summary ---
Author Organization [facility] Address [address] [facility] [address] [place] [address] Care Team Providers Care Rate Manager Name Role Phone Flynn Aviles MD Primary Care Provider +[phone]- [phone] Pilo Deras DO Primary Care Provider [phone] Encounter Details Date Type Department Care Team (Late st Contact Info) Description 06/15/2016 Orders Only [facility] ProviderMark MD [address] [place] [address] Social History Tobacco Use Types Packs/Day Years Used Date Smoking Tobacco: Never Assessed Comments Unknown Sex and Gender Information Value Date Recorded Sex Assigned at Not on file 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
--- OUTSIDE RECORDS SUMMARY | 2024-07-10 13:31 | XMS_ITS | Encounter Summary ---
Author Organization [facility] Address [address] [facility] [address] [place] [address] Care Team Providers Care Dehairer Name Role Phone Flynn Aviles MD Primary Care Provider + [phone] Flynn Aviles MD Primary Care Provider + [phone] Pilo Deras DO Primary Care Provider [phone] Encounter Details Date Type Department Care Team (Late st Contact Info) Description 04/06/2016 Orders Only [facility] ProviderMark MD [address] [place] [address] Social History Tobacco Use Types Packs/Day Years Used Date Smoking Tobacco: Never Assessed Comments Unknown Sex and Gender Information Value Date Recorded Sex Assigned at Not on file Legal Sex 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
--- OUTSIDE RECORDS SUMMARY | 2024-07-10 13:31 | XMS_ITS | Encounter Summary ---
Author Organization [facility] Address [address] [facility] [address] [place] [address] Care Team Providers Care Manager Performance Name Role Phone Flynn Aviles MD Primary Care Provider +[phone]- [phone] Pilo Deras DO Primary Care Provider [phone] Encounter Details Date Type Department Care Team (Late st Contact Info) Description 07/06/2016 Orders Only [facility] ProviderMark MD [address] [place] [address] Social History Tobacco Use Types Packs/Day Years Used Date Smoking Tobacco: Never Assessed Comments Unknown Sex and Gender Information Value Date Recorded Sex Assigned at Not on file Legal Sex Female 4:59 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
--- OUTSIDE RECORDS SUMMARY | 2024-07-10 13:31 | XMS_ITS | Encounter Summary ---
Author Organization [facility] Address [address] [facility] [address] [place] [address] Care Team Providers Care Law Office Manager Name Role Phone Flynn Aviles MD Primary Care Provider + [phone] Flynn Aviles MD Primary Care Provider + [phone] Pilo Deras DO Primary Care Provider [phone] Encounter Details Date Type Department Care Team (Late st Contact Info) Description 03/03/2016 Orders Only [facility] ProviderMark MD [address] [place] [address] Social History Tobacco Use Types Packs/Day Years Used Date Smoking Tobacco: Never Assessed Comments Unknown Sex and Gender Information Value Date Recorded Sex Assigned at Not on file Legal 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
--- OUTSIDE RECORDS SUMMARY | 2024-07-10 13:31 | XMS_ITS | Encounter Summary ---
Author Organization [facility] Address [address] [place] [address] Phone Care Team Providers Care Cook Tortilla Name Role Phone Flynn Aviles Primary Care Provider Reason for Visit * Reason Comments Med Refill Encounter Details Date Type Department Care Team (Late st Contact Info) Description 10/07/2020 Refill [facility] Nephrology and Hypertension [address] [facility], [address] [address] Lalo Sandoval MD [address] [facility], [address] [place] [address] Social History Tobacco Use Types Packs/Day Years Used Date Smoking Tobacco: Never Smokeless Tobacco: Never Alcohol Use Standard Drinks/Week Comments Yes 0 (1 standard drink = 0.6 oz pur e alcohol) Comments Unknown Sex and Gender Information Value Date Recorded Sex Assigned at Not on file Legal Sex Female 8:16 AM [facility] Gender Identity Not on file Sexual Orientation [...] on filedocumented in this encounter Care Teams Cook Tortilla Relationship Specialty Start Date End Date Flynn Aviles DO [address] [facility] [address] [address] PCP - General Internal Medicine 05/28/18 documented as of this encounter
[2024-07-10 14:58] LABS: Hematocrit 36.9 % (37.0-47.0); Hemoglobin 11.5 g/dL (12.0-15.0); Mean Corpuscular HGB Conc 31.2 g/dl (32-36); Mean Corpuscular Volume 92.9 fl (80-100); Mean Platelet Volume 9.5 fl (7.4-10.4); Platelet Count Result 255 k/mm3 (150-375); Red Blood Count 3.97 M/mm3 (4.2-5.4); Red Cell Distribution Width 13.5 % (11.5-14.5); White Blood Count 7.2 K/mm3 (4.5-10.0)
[2024-07-10 15:16] LABS: Albumin Level 4.2 g/dL (3.5-5.1); Anion Gap 11 mmol/L (4-12); Blood Urea Nitrogen 30 mg/dL (7-17); Carbon Dioxide 20 mmol/L (22-30); Chloride 106 mmol/L (98-107); Estimated Glomerular Filt Rate 24; Glucose 90 mg/dL (65-110); Potassium 4.5 mmol/L (3.4-5.0); Sodium 137 mmol/L (137-145)
[2024-07-10 15:25] LABS: Parathyroid Intact 91.9 pg/mL (14.5-75.2)
[2024-07-10 15:35] LABS: Total Protein Urine Random 25 mg/dL
[2024-07-10 15:42] LABS: Creatinine Urine 69.4 mg/dL; Ur Ttl Prot Creatinine Ratio 0.36 mg/mg (0-0.20)
[2024-07-10 18:01] LABS: Iron 104 ug/dL (37-170)
[2024-07-10 18:10] LABS: Percent Iron Saturation 36 % (20-50)
== END 2024-07-10 13:20 | disposition home or self-care (01) ==
PROVIDERS: PCP Internal Medicine; Referring Provider Internal Medicine Cardiovascular Disease; Visit Provider Internal Medicine Nephrology
DX: N18.32 Chronic kidney disease, stage 3b (principal); D63.1 Anemia in chronic kidney disease
CPT/HCPCS: 36415; 80069; 82570; 82728; 83540; 83550; 83970; 84156; 85027

== ENCOUNTER 2024-09-04 11:08 | Outpatient (CLI) | payer MEDICARE, MEDICAID, SELFPAY ==
--- OUTSIDE RECORDS SUMMARY | 2024-09-04 11:22 | XMS_ITS | Encounter Summary ---
Author Organization [facility] Address [address] [facility] [address] [place] [address] Care Team Providers Care Examination Proctor Name Role Phone Flynn Aviles MD Primary Care Provider + [phone] Flynn Aviles MD Primary Care Provider + [phone] Pilo Deras DO Primary Care Provider [phone] Encounter Details Date Type Department Care Team (Late st Contact Info) Description 04/19/2016 Orders Only [facility] ProviderMark MD [address] [place] [address] Social History Tobacco Use Types Packs/Day Years Used Date Smoking Tobacco: Never Assessed Comments Unknown Sex and Gender Information Value Date Recorded Sex Assigned at Not on file Legal Sex 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
--- OUTSIDE RECORDS SUMMARY | 2024-09-04 11:22 | XMS_ITS | Clinical Summary ---
Author Organization [facility] Address [address] [facility] [place] [address] Care Team Providers Care Textiles Printer Name Role Phone StefanFlynn Georgina DO Primary Care Provider [phone] Source Comments [facility],non-owned Affiliates and Associated Physician Practices is amultiple site organization consisting of ambulatory clinics and hospital sitesin [place], [place], [place] and [place]. This disclosure is being madepursuant to the Care Everywhere program and may not contain all information available regarding this patient. 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
--- OUTSIDE RECORDS SUMMARY | 2024-09-04 11:22 | XMS_ITS | Encounter Summary ---
Author Organization [facility] Address [address] [facility] [address] [place] [address] Care Team Providers Care Documentation Nurse Name Role Phone Flynn Aviles MD Primary Care Provider + [phone] Flnyn Aviles MD Primary Care Provider + [phone] Pilo Deras DO Primary Care Provider [phone] Encounter Details Date Type Department Care Team (Late st Contact Info) Description 04/06/2016 Orders Only [facility] ProviderMark MD [address] [place] [address] Social History Tobacco Use Types Packs/Day Years Used Date Smoking Tobacco: Never Assessed Comments Unknown Sex and Gender Information Value Date Recorded Sex Assigned at Not on file Legal Sex Female 4:[address] Gender Identity Not on file Sexual [...] on filedocumented in this encounter Care Teams Documentation Nurse Relationship Specialty Start Date End Date Flynn Aviles MD [address] [facility] 120 [place] [address] PCP - General 05/13/16 12/27/23 Flynn Aviles MD [address] [facility] [address] [place] [address] PCP - General 03/03/16 05/12/16 Pilo Deras DO [address] [facility] [address] [place] [address] PCP - General Internal Medicine 12/28/23 documented as of this encounter
--- OUTSIDE RECORDS SUMMARY | 2024-09-04 11:22 | XMS_ITS | Encounter Summary ---
Author Organization [facility] Address [address] [facility] [address] [place] [address] Care Team Providers Care Vehicle Dynamics Engineer Name Role Phone Flynn Aviles MD Primary Care Provider +1- [phone] Pilo Deras DO Primary Care Provider [phone] Encounter Details Date Type Department Care Team (Late st Contact Info) Description 07/06/2016 Orders Only [facility] ProviderMark MD [address] [place] [address] Social History Tobacco Use Types Packs/Day Years Used Date Smoking Tobacco: Never Assessed Comments Unknown Sex and Gender Information Value Date Recorded Sex Assigned at Not on file Legal Sex Female 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
--- OUTSIDE RECORDS SUMMARY | 2024-09-04 11:22 | XMS_ITS | Encounter Summary ---
Author Organization [facility] Address [address] [facility] [address] [place] [address] Care Team Providers Care [place] Aide Name Role Phone Flynn Aviles MD Primary Care Provider +1- [phone] Flynn Aviles MD Primary Care Provider +[phone]- [phone] Flynn Aviles MD Primary Care Provider +1- [phone] Pilo Deras DO Primary Care Provider [phone] Encounter Details Date Type Department Care Team (Late st Contact Info) Description 02/26/2016 Orders Only [facility] ProviderMark MD [address] [place] [address] Social History Tobacco Use Types Packs/Day Years Used Date Smoking Tobacco: Never Assessed Comments Unknown Sex and Gender Information Value Date Recorded Sex Assigned at Not on file Legal 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 Gender Identity Not on file Sexual Orientation [...] on filedocumented in this encounter Care Teams [place] Aide Relationship Specialty Start Date End Date Flynn Aviles MD [address] [facility] 120 [place] [address] PCP - General 05/13/16 12/27/23 Flynn Aviles MD [address] [facility] 120 [place] [address] PCP - General 03/03/16 05/12/16 Flynn Aviles MD [address] [facility] 120 [place] [address] PCP - General 02/17/16 03/02/16 Pilo Deras DO [address] [facility] 21 [place] [address] PCP - General Internal Medicine 12/28/23 documented as of this encounter
--- OUTSIDE RECORDS SUMMARY | 2024-09-04 11:22 | XMS_ITS | Encounter Summary ---
Author Organization [facility] Address [address] [place] [address] Phone Care Team Providers Care Silk Screen Printer Name Role Phone Flynn Aviles Primary Care Provider [phone] Reason for Visit * Reason Comments Med Refill Encounter Details Date Type Department Care Team (Late st Contact Info) Description 10/07/2020 Refill [facility] Nephrology and Hypertension [address] [facility], [address] [address] Lalo Sandoval MD [address] [facility], [address] [place] [address] Social History Tobacco Use Types Packs/Day Years Used Date Smoking Tobacco: Never Smokeless Tobacco: Never Alcohol Use Standard Drinks/Week Comments Yes 0 (1 standard drink = 0.6 oz pur e alcohol) Comments Unknown Sex and Gender Information Value Date Recorded Sex Assigned at Not on file Legal Sex Female 8:16 AM [facility] Gender Identity Not on file Sexual Orientation [...] on filedocumented in this encounter Care Teams Silk Screen Printer Relationship Specialty Start Date End Date Flynn Aviles DO [address] [facility] [address] [address] PCP - General Internal Medicine 05/28/18 documented as of this encounter
--- OUTSIDE RECORDS SUMMARY | 2024-09-04 11:22 | XMS_ITS | Encounter Summary ---
Author Organization [facility] Address [address] [facility] [address] [place] [address] Care Team Providers Care Senior Librarian Name Role Phone Flynn Aviles MD Primary Care Provider +1- [phone] Pilo Deras DO Primary Care Provider [phone] Encounter Details Date Type Department Care Team (Late st Contact Info) Description 06/15/2016 Orders Only [facility] ProviderMark MD [address] [place] [address] Social History Tobacco Use Types Packs/Day Years Used Date Smoking Tobacco: Never Assessed Comments Unknown Sex and Gender Information Value Date Recorded Sex Assigned at Not on file Legal Sex Female 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
--- OUTSIDE RECORDS SUMMARY | 2024-09-04 11:22 | XMS_ITS | Encounter Summary ---
Author Organization [facility] Address [address] [facility] [address] [place] [address] Care Team Providers Care Wireless Engineer Name Role Phone Flynn Aviles MD Primary Care Provider +1- [phone] Flynn Aviles MD Primary Care Provider +1- [phone] Flynn Aviles MD Primary Care Provider +1- [phone] Pilo Deras DO Primary Care Provider [phone] Encounter Details Date Type Department Care Team (Late st Contact Info) Description 02/17/2016 Orders Only [facility] ProviderMark MD [address] [place] [address] Social History Tobacco Use Types Packs/Day Years Used Date Smoking Tobacco: Never Assessed Comments Unknown Sex and Gender Information Value Date Recorded Sex Assigned at Not on file Legal 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 Gender Identity Not on file Sexual Orientation [...] on filedocumented in this encounter Care Teams Wireless Engineer Relationship Specialty Start Date End Date Flynn Aviles MD [address] [facility] 120 [place] [address] PCP - General 05/13/16 12/27/23 Flynn Aviles MD [address] [facility] 120 [place] [address] PCP - General 03/03/16 05/12/16 Flynn Aviles MD [address] [facility] 120 [place] [address] PCP - General 02/17/16 03/02/16 Pilo Deras DO [address] [facility] 21 [place] [address] PCP - General Internal Medicine 12/28/23 documented as of this encounter
--- OUTSIDE RECORDS SUMMARY | 2024-09-04 11:22 | XMS_ITS | Encounter Summary ---
Author Organization [facility] Address [address] [place] [address] Care Team Providers Care Linux System Admin Name Role Phone Flynn Aviles MD Primary Care Provider +[phone]- [phone] Pilo Deras DO Primary Care Provider [phone] Encounter Details Date Type Department Care Team (Late st Contact Info) Description 10/04/2023 Orders Only [facility] Information Management [address] [place] [address] Scanning, Provider Social History Tobacco Use Types Packs/Day Years Used Date Smoking Tobacco: Never Smokeless Tobacco: Never Alcohol Use Standard Drinks/Week Comments No 0 (1 standard drink = 0.6 oz pur e alcohol) Comments Unknown Sex and Gender Information Value Date Recorded Sex Assigned at Not on file Legal Sex Female 4:59 AM SUGAR COATING 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 Gender Identity Not on file Sexual Orientation Not on file documented as of this encounter Plan of Treatment Not on file documented as of this encounter Procedures Procedure Name Priority Date/Time Associated Diagnosis Comments SCAN - LABS 10/04/2023 documented in this encounter Results * SCAN - LABS (10/04/2023) us Provider Scanning Edited Result - Final documented in this encounter Visit Diagnoses Not on filedocumented in this encounter Care Teams Linux System Admin Relationship Specialty Start Date End Date Flynn Aviles MD [address] [facility] [address] [place] [address] PCP - General 05/13/16 12/27/23 Pilo Deras DO [address] [facility] 21 [place] [address] PCP - General Internal Medicine 12/28/23 documented as of this encounter
--- OUTSIDE RECORDS SUMMARY | 2024-09-04 11:22 | XMS_ITS | Clinical Summary ---
Author Organization [facility] [address] Address [address] [place] [address] Care Team Providers Care Zipper Setter Chainstitch Name Role Phone Pilo Deras DO Primary Care Provider [phone] Allergies Active Allergy Reactions Criticality Noted Date [...] Encounters Date Type Department Care Team Description 07/29/2024 7:00 AM CDT Ancillary Procedure [facility] Cardiology [address] [place] [phone] Pacemaker; Paroxysmal supraventricular tachycardia; Intermittent complete heart block (HCC) 07/02/2024 3:15 PM CDT Office Visit [facility] Medical Group Cardiology at [address] [place] [address] Deric Winkler MD Paroxysmal supraventricular tachycardia (Primary Dx); Pacemaker; Intermittent complete heart block (HCC); Stage 3 chronic kidney disease, unspecified whether stage 3a or 3b CKD (HCC); History of pulmonary embolism from Last 3 Months Surgical History Surgery Date Site/Laterality Comments APPENDECTOMY Appendectomy Medical History Medical History Date Comments Hx Other Medical dizziness; Comm ents: [facility] 09/11/2015 - Hx Other Medical 2007 right ankle fra cture; Comments: [facility] 09/11/2015 - Hx Other Medical 2001 hip surgery; Co mments: [facility] 09/11/2015 - Hx Other Medical 2004 gastric bypass; Comments: 09/11/2015 - Gastroesophageal reflux disease GERD Hx Other Medical fibromyalgia; C omments: 09/11/2015 - Hx Other Medical chronic back pa in; Comments: 09/11/2015 - Hx Other Medical 2001 Fatty liver; Co mments: [facility] 09/11/2015 - Hx Other Medical Thyroid diz; Co mments: [facility] 09/11/2015 - Osteoarthritis Osteoarthritis; Comments: 09/11/2015 - [...] on file Legal Sex Female 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 Gender Identity Not on file Sexual Orientation [...] PPSV23) 10/14/2018 10/14/2017, 10/14/2016, 11/07/2014 Influenza Vaccine (#1) 2024 , 11/30/2018, 11/14/2017, Additional history exists Medical Devices Implanted Type Area Valve Seater Operator Device Identifier Shelf Expiration Date Model / Serial / Lot Pacemaker-10/22 Implanted:10/2015 by Vivian Sol MD (Quantity not on file) Pacemaker Chest [facility] [employer] CHB ASSURITY [id number] / [id number] / Insurance MEDICARE [facility] MEDICARE IDPA Care Teams Zipper Setter Chainstitch Relationship Specialty Start Date End Date Pilo Deras DO [address] [facility] 21 [place], [place] [id number] PCP - General Internal Medicine 12/28/23
--- OUTSIDE RECORDS SUMMARY | 2024-09-04 11:22 | XMS_ITS | Encounter Summary ---
Author Organization [facility] Medical [facility] Address [address] [facility] [address] [place] [address] Care Team Providers Care Statistical Analyst Name Role Phone Flynn Aviles MD Primary Care Provider + [phone] Flynn Aviles MD Primary Care Provider + [phone] Pilo Deras DO Primary Care Provider [phone] Encounter Details Date Type Department Care Team (Late st Contact Info) Description 03/03/2016 Orders Only [facility] ProviderMark MD [address] [place] [address] Social History Tobacco Use Types Packs/Day Years Used Date Smoking Tobacco: Never Assessed Comments Unknown Sex and Gender Information Value Date Recorded Sex Assigned at Not on file Legal Sex Female 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
--- OUTSIDE RECORDS SUMMARY | 2024-09-04 11:22 | XMS_ITS | Clinical Summary ---
Author Organization [facility] Address [address] [place] [address] Phone Care Team Providers Care Tab Machine Operator Name Role Phone Flynn Aviles Primary Care Provider [phone] Allergies Active Allergy Reactions Criticality Noted Date [...] and oe with dinner 2 Active Methylcobalamin (R98-[id number]) 1 MG chewable tablet 2 qod 0 [...] breakfast Active ergocalciferol (VITAMIN D2) 1.25 MG (76820 UT) capsule TAKE 1 CAPSULE BY MOUTH [...] on file Legal Sex Female 8:16 AM [facility] Gender Identity Not on file [...] and Medium Risk (2 of 3 - PCV20 or PCV21) 10/14/2018 10/14/2017 Influenza Vaccine (#1) 2024 11/13/2020, 2018 Insurance MEDICARE MEDICAID - [place] Care Teams Tab Machine Operator Relationship Specialty Start Date End Date Chrislin FlynnDO [address] [facility] 21 [place] [address] PCP - General Internal Medicine 05/28/18
--- OUTSIDE RECORDS SUMMARY | 2024-09-04 11:22 | XMS_ITS | Referral Summary ---
Author Organization [facility] [address] Address [address] [place] [address] Care Team Providers Care Knitting Machine Operator Name Role Phone Pilo Deras DO Primary Care Provider [phone] Encounters Date Type Department Care Team Description 07/29/2024 7:00 AM CDT Ancillary Procedure [facility] Medical [facility] Cardiology [address] [facility] [address], [place] [phone] Pacemaker; Paroxysmal supraventricular tachycardia; Intermittent complete heart block (HCC) 07/02/2024 3:15 PM CDT Office Visit [facility] Medical Group Cardiology at [address] [place] [address] Deric Winkler MD Paroxysmal supraventricular [...] on file Legal Sex Female 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 Gender Identity Not on file Sexual [...] on file Medical Devices Implanted Type Area Diesel Maintenance Electrician Device Identifier Shelf Expiration Date Model / Serial / Lot Pacemaker-10/22 Implanted:10/2015 by Vivian Sol MD (Quantity not on file) Pacemaker [facility] CHB ASSURITY 2240 / [id number] / Insurance MEDICARE [facility] Address: [address] [address] [place] [address] [employer] MEDICARE [facility] Address: [address] [address] [place] [address] IDPA Care Teams Knitting Machine Operator Relationship Specialty Start Date End Date Pilo Deras DO [address] [place] [address] PCP - General Internal Medicine 12/28/23
[2024-09-04 11:38] LABS: Add Urine Microscopic? YES; Appearance Urine Clear (Clear); Glucose Urine UA Negative (Negative); Leukocyte Esterase Ur 2+ LEU/UL (Negative); Nitrate Urine Negative (Negative); Non Pathogenic Casts 0-2; Specific Grav Ur 1.007 (1.001-1.035)
== END 2024-09-04 11:09 | disposition home or self-care (01) ==
PROVIDERS: PCP Internal Medicine; Visit Provider Internal Medicine
DX: R30.0 Dysuria (principal)
CPT/HCPCS: 81001; 87086

== ENCOUNTER 2024-09-20 08:01 | Outpatient (CLI) | payer MEDICARE, OTHER, SELFPAY ==
--- OUTSIDE RECORDS SUMMARY | 2024-09-20 08:06 | XMS_ITS | Encounter Summary ---
Author Organization [facility] Medical [facility] Address [address] [facility] [address] [place] [address] Care Team Providers Care Rehabilitation Services Aide Name Role Phone Flynn Aviles MD Primary Care Provider [phone] Pilo Deras DO Primary Care Provider [phone] Encounter Details Date Type Department Care Team (Late st Contact Info) Description 06/15/2016 Orders Only [facility] ProviderMark MD [address] [place] [address] Social History Tobacco Use Types Packs/Day Years Used Date Smoking Tobacco: Never Assessed Comments Unknown Sex and Gender Information Value Date Recorded Sex Assigned at Not on file Legal Sex Female 4:59 AM SAP SD ANALYST Gender Identity Not on file Sexual Orientation [...] on filedocumented in this encounter Care Teams Rehabilitation Services Aide Relationship Specialty Start Date End Date Flynn Aviles MD [address] [facility] 120 [place], [place] [id number] PCP - General 05/13/16 12/27/23 Pilo Deras DO [address] [facility] [address] [place], [place] [phone] PCP - General Internal Medicine 12/28/23 documented as of this encounter
--- OUTSIDE RECORDS SUMMARY | 2024-09-20 08:06 | XMS_ITS | Clinical Summary ---
Author Organization [facility] Address [address] [place] [address] Phone Care Team Providers Care Purse Seining Hand Name Role Phone Flynn Aviles Primary Care Provider [phone] Allergies Active Allergy Reactions Criticality Noted Date [...] and oe with dinner 2 Active Methylcobalamin (J22-KUDVYK) 1 MG chewable tablet 2 qod 0 [...] breakfast Active ergocalciferol (VITAMIN D2) 1.25 MG (60972 UT) capsule TAKE 1 CAPSULE BY MOUTH [...] on file Legal Sex Female 8:16 AM [facility] Gender Identity Not on file Sexual [...] Insurance MEDICARE [place]ICA[place] - [place] Care Teams Purse Seining Hand Relationship Specialty Start Date End Date Chrislin FlynnDO [address] [facility] 21 [place] [address] PCP - General Internal Medicine 05/28/18
--- OUTSIDE RECORDS SUMMARY | 2024-09-20 08:06 | XMS_ITS | Clinical Summary ---
Author Organization [facility] Address [facility] [place] [address] Care Team Providers Care Quiller Tender Name Role Phone Unavailable Primary Care Provider [...] Td Vaccines ( 1 - Tdap) 1961 Pneumococcal Vaccine: 50+ Ye ars (1 of 1 - PCV) 1992 Zoster Vaccines (1 of 2) 1992 Dexa Scan (General) 06/06/2007 RSV Immunization or 60+ Years (1 - 1-dose 75+ series) 2017 COVID-19 Vaccine (2023-2 5 season) 2023 Meningococcal B Vaccine Aged Out No l onger eligible based on patient's age to complete this topic Meningococcal Vaccine Aged Out No gardenia nola eligible based on patient's age to complete this topic RSV Immunizations Under 20 Months Aged Out No longer eligible based on patient's age to complete this topic
--- OUTSIDE RECORDS SUMMARY | 2024-09-20 08:06 | XMS_ITS | Encounter Summary ---
Author Organization [facility] Healthcare Address [address] [place] [address] Care Team Providers Care Regulatory Lead Name Role Phone Pilo Deras DO Primary Care Provider [phone] Encounter Details Date Type Department Care Team (Late st Contact Info) Description 07/10/2024 Orders Only [facility] Health Information Management [address] [place] [address] Scanning, Provider Social History Tobacco Use Types Packs/Day Years Used Date Smoking Tobacco: Never Smokeless Tobacco: Never Alcohol Use Standard Drinks/Week Comments No 0 (1 standard drink = 0.6 oz pur e alcohol) Comments Unknown Sex and Gender Information Value Date Recorded Sex Assigned at Not on file 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 Gender Identity Not on file Sexual Orientation Not on file documented as of this encounter Plan of Treatment Not on file documented as of this encounter Procedures Procedure Name Priority Date/Time Associated Diagnosis Comments SCAN - LABS 07/10/2024 documented in this encounter Results * SCAN - LABS (07/10/2024) us Provider Scanning Final Result documented in this encounter Visit Diagnoses Not on filedocumented in this encounter Care Teams Regulatory Lead Relationship Specialty Start Date End Date Pilo Deras DO [address] [place] [address] PCP - General Internal Medicine 12/28/23 documented as of this encounter
--- OUTSIDE RECORDS SUMMARY | 2024-09-20 08:06 | XMS_ITS | Clinical Summary ---
Author Organization [facility] [address] Address [address] [place] [address] Care Team Providers Care Mortgage Underwriter Name Role Phone Pilo Deras DO Primary Care Provider [phone] Allergies Active Allergy Reactions Criticality Noted Date [...] Description 07/29/2024 7:00 AM CDT Ancillary Procedure [facility] Medical Group Cardiology [address] [phone] Pacemaker; Paroxysmal supraventricular tachycardia; Intermittent complete heart block (HCC) 07/10/2024 Orders Only [facility] Health Information Management [address] [place] [address] Scanning, Provider 07/02/2024 3:15 PM CDT Office Visit [facility] Medical Group Cardiology at [address] [place] [address] Deric Winkler MD Paroxysmal supraventricular [...] Medical 2008 right ankle fra cture; Comments: [facility] 09/11/2015 - Hx Other Medical 2002 hip surgery; Co mments: [facility] 09/11/2015 - Hx Other Medical 2004 gastric bypass; Comments: 09/11/2015 - Gastroesophageal reflux disease GERD Hx Other Medical fibromyalgia; C omments: [facility] 09/11/2015 - Hx Other Medical chronic back pa in; Comments: [facility] 09/11/2015 - Hx Other Medical 2000 Fatty liver; Co mments: [facility] 09/11/2015 - Hx Other Medical Thyroid diz; Co mments: [facility] 09/11/2015 - Osteoarthritis Osteoarthritis; Comments: 09/11/2015 [...] on file 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 Gender Identity Not on file Sexual [...] 10/14/2017, 10/14/2016, 11/07/2014 Influenza Vaccine (#1) 2024 1, 11/30/2018, 11/14/2017, Additional history exists Medical Devices Implanted Type Area Audio Video Technician Device Identifier Shelf Expiration Date Model / Serial / Lot Pacemaker-10/22 Implanted:10/2015 by Vivian Sol MD (Quantity not on file) Pacemaker Chest [facility] [employer] CHB ASSURITY 2240 / [id number] / Procedures Procedure Name Priority Date/Time Associated Diagnosis Comments DEVICE CHECK - REMOTE Routine 08/08/2024 3:08 PM CDT Pacemaker Paroxysmal supraventricular tachycardia Intermittent complete heart block (HCC) SCAN - LABS 07/10/2024 from Last 3 Months Results * DEVICE CHECK - REMOTE (08/08/2024 3:08 PM CDT) Anatomical Region Laterality Modality Other Narrative 09/12/2024 12:[address] [employer] Dual Pacemaker Dx; CHB DOI 10/23/[address] SelSahara remote home monitor Q3 mo, Office pacer checks Q1 yr. Lead revision 02/26/2016. Battery Advisory. Routine DDD Pacemaker Remote. Transmission attached. Battery status: 2.89 V , 1.7 years remaining battery life to ADI. Stable lead impedances, pacing and sensing thresholds. Presenting rhythm: AP/VS NIKE ATHLETE AP-18%, NIKE ATHLETE-2.8% 63 AMS episodes noted, longest episode was 40 seconds in duration, IEGM demonstrates AFib. AF [place] < 1%. 30 Ventricular high rate episodes detected, IEGM demonstrates AFib with RVR with the longest episode lasting 1 minute and 4 seconds. Medications: Diltiazem 30 mg See scanned report. Office pacemaker follow up: 05/28/25 SelSahara remote f/u 11/05/24. Tushar Aguilar RN us Deric Winkler MD [facility] CARDIAC SERVICES PROCE DURES Final Result * SCAN - LABS (07/10/2024) us Provider Scanning Final Result from Last 3 Months Insurance MEDICARE [facility] MEDICARE IDPA Care Teams Mortgage Underwriter Relationship Specialty Start Date End Date Pilo Deras DO [address] [place] [address] PCP - General Internal Medicine 12/28/23
--- OUTSIDE RECORDS SUMMARY | 2024-09-20 08:06 | XMS_ITS | Encounter Summary ---
Author Organization [facility] Address [address] [place] [address] Phone Care Team Providers Care Real Estate Investment Analyst Name Role Phone Flynn Aviles Primary Care Provider [phone] Reason for Visit * Reason Comments Med Refill Encounter Details Date Type Department Care Team (Late st Contact Info) Description 10/07/2020 Refill [facility] Nephrology and Hypertension [address] [facility], [address] [address] Lalo Sandoval MD [address] [facility] [place] [address] Social History Tobacco Use Types Packs/Day Years Used Date Smoking Tobacco: Never Smokeless Tobacco: Never Alcohol Use Standard Drinks/Week Comments Yes 0 (1 standard drink = 0.6 oz pur e alcohol) Comments Unknown Sex and Gender Information Value Date Recorded Sex Assigned at Not on file Legal Sex Female 8:16 AM [facility] Gender Identity Not on file Sexual Orientation [...] on filedocumented in this encounter Care Teams Real Estate Investment Analyst Relationship Specialty Start Date End Date Flynn Aviles DO [address] [facility] [address] [address] PCP - General Internal Medicine 05/28/18 documented as of this encounter
--- OUTSIDE RECORDS SUMMARY | 2024-09-20 08:06 | XMS_ITS | Encounter Summary ---
Author Organization [facility] Medical Group Address [address] [facility] [address] [place] [address] Care Team Providers Care Operating Table Assembler Name Role Phone Flynn Aviles MD Primary Care Provider + [phone] Flynn Aviles MD Primary Care Provider + [phone] Pilo Deras DO Primary Care Provider [phone] Encounter Details Date Type Department Care Team (Late st Contact Info) Description 04/06/2016 Orders Only [facility] ProviderMark MD [address] [place] [address] Social History Tobacco Use Types Packs/Day Years Used Date Smoking Tobacco: Never Assessed Comments Unknown Sex and Gender Information Value Date Recorded Sex Assigned at Not on file 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
--- OUTSIDE RECORDS SUMMARY | 2024-09-20 08:06 | XMS_ITS | Encounter Summary ---
Author Organization [facility] Medical Group Address [address] [facility] [address] [place] [address] Care Team Providers Care Copper Plater Name Role Phone Flynn Aviles MD Primary Care Provider [phone] Flynn Aviles MD Primary Care Provider [phone] Flynn Aviles MD Primary Care Provider [phone] Pilo Deras DO Primary Care Provider [phone] Encounter Details Date Type Department Care Team (Late st Contact Info) Description 02/17/2016 Orders Only [facility] ProviderMark MD [address] [place] [address] Social History Tobacco Use Types Packs/Day Years Used Date Smoking Tobacco: Never Assessed Comments Unknown Sex and Gender Information Value Date Recorded Sex Assigned at Not on file 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 Gender Identity Not on file Sexual [...] on filedocumented in this encounter Care Teams Copper Plater Relationship Specialty Start Date End Date Flynn Aviles MD [address] [facility] 120 [place] [address] PCP - General 05/13/16 12/27/23 Flynn Aviles MD [address] [facility] [address] [place] [address] PCP - General 03/03/16 05/12/16 Flynn Aviles MD [address] [facility] [address] [place] [address] PCP - General 02/17/16 03/02/16 Pilo Deras DO [address] [facility] [address] [place] [address] PCP - General Internal Medicine 12/28/23 documented as of this encounter
--- OUTSIDE RECORDS SUMMARY | 2024-09-20 08:06 | XMS_ITS | Clinical Summary ---
Author Organization [facility] Address [address] [facility] [place] [address] Care Team Providers Care Director Of Front Office Name Role Phone StefanFlynn Georgina DO Primary Care Provider [phone] Source Comments [facility],non-owned Affiliates and Associated Physician Practices is amultiple site organization consisting of ambulatory clinics and hospital sitesin [place], [place], [place] and [place]. This disclosure is being madepursuant to the Care Everywhere program and may not contain all information available regarding this patient. 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
--- OUTSIDE RECORDS SUMMARY | 2024-09-20 08:06 | XMS_ITS | Encounter Summary ---
Author Organization [facility] Medical Group Address [address] [facility] [address] [place] [address] Care Team Providers Care Rebar Bender Name Role Phone Flynn Aviles MD Primary Care Provider [phone] Pilo Deras DO Primary Care Provider [phone] Encounter Details Date Type Department Care Team (Late st Contact Info) Description 07/06/2016 Orders Only [facility] ProviderMark MD [address] [place] [address] Social History Tobacco Use Types Packs/Day Years Used Date Smoking Tobacco: Never Assessed Comments Unknown Sex and Gender Information Value Date Recorded Sex Assigned at Not on file 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
--- OUTSIDE RECORDS SUMMARY | 2024-09-20 08:06 | XMS_ITS | Encounter Summary ---
Author Organization [facility] Medical Group Address [address] [facility] [address] [place] [address] Care Team Providers Care Optical Engineering Technician Name Role Phone Flynn Aviles MD Primary Care Provider + [phone] Flynn Aviles MD Primary Care Provider + [phone] Pilo Deras DO Primary Care Provider [phone] Encounter Details Date Type Department Care Team (Late st Contact Info) Description 04/19/2016 Orders Only [facility] ProviderMark MD [address] [place] [address] Social History Tobacco Use Types Packs/Day Years Used Date Smoking Tobacco: Never Assessed Comments Unknown Sex and Gender Information Value Date Recorded Sex Assigned at Not on file Legal 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
--- OUTSIDE RECORDS SUMMARY | 2024-09-20 08:06 | XMS_ITS | Encounter Summary ---
Author Organization [facility] Address [address] [place] [address] Care Team Providers Care Head Of Geography Name Role Phone Flynn Aviles MD Primary Care Provider + [phone] Flynn Aviles MD Primary Care Provider + [phone] Pilo Deras DO Primary Care Provider [phone] Encounter Details Date Type Department Care Team (Late st Contact Info) Description 03/03/2016 Orders Only [facility] ProviderMark MD [address] [place] [id number] Social History Tobacco Use Types Packs/Day Years Used Date Smoking Tobacco: Never Assessed Comments Unknown Sex and Gender Information Value Date Recorded Sex Assigned at Not on file Legal Sex Female 4:59 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
--- OUTSIDE RECORDS SUMMARY | 2024-09-20 08:06 | XMS_ITS | Encounter Summary ---
Author Organization [facility] Address [address] [place] [address] Care Team Providers Care Supervisor Orchard Name Role Phone Flynn Aviles MD Primary Care Provider [phone]- [phone] Flynn Aviles MD Primary Care Provider [phone] Flynn Aviles MD Primary Care Provider [phone]- [phone] Pilo Deras DO Primary Care Provider [phone] Encounter Details Date Type Department Care Team (Late st Contact Info) Description 02/26/2016 Orders Only [facility] ProviderMark MD [address] [place] [address] Social History Tobacco Use Types Packs/Day Years Used Date Smoking Tobacco: Never Assessed Comments Unknown Sex and Gender Information Value Date Recorded Sex Assigned at Not on file 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 Gender Identity Not on file Sexual Orientation [...] on filedocumented in this encounter Care Teams Supervisor Orchard Relationship Specialty Start Date End Date Flynn Aviles MD [address] [facility] [address] [place] [address] PCP - General 05/13/16 12/27/23 Flynn Aviles MD [address] [facility] [address] [place] [address] PCP - General 03/03/16 05/12/16 Flynn Aviles MD [address] [facility] [address] [place] [address] PCP - General 02/17/16 03/02/16 Pilo Deras DO [address] [facility] [address] [place] [address] PCP - General Internal Medicine 12/28/23 documented as of this encounter
--- OUTSIDE RECORDS SUMMARY | 2024-09-20 08:06 | XMS_ITS | Encounter Summary ---
Author Organization [facility] Address [address] [place] [address] Care Team Providers Care Bioinformatics Software Engineer Name Role Phone Flynn Aviles MD Primary Care Provider [phone]- [phone] Pilo Deras DO Primary Care Provider [phone] Encounter Details Date Type Department Care Team (Late st Contact Info) Description 10/04/2023 Orders Only [facility] Health Information Management [address] [place] [address] Scanning, Provider Social History Tobacco Use Types Packs/Day Years Used Date Smoking Tobacco: Never Smokeless Tobacco: Never Alcohol Use Standard Drinks/Week Comments No 0 (1 standard drink = 0.6 oz pur e alcohol) Comments Unknown Sex and Gender Information Value Date Recorded Sex Assigned at Not on file 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
[2024-09-20 08:51] LABS: Cholesterol 198 mg/dL (0-200); HDL Direct 55 mg/dL; Triglycerides 115 mg/dL (<150)
[2024-09-20 09:28] LABS: Thyroid Stimulating Hormone 2.500 uIU/mL (0.465-4.680)
[2024-09-20 12:43] LABS: Hemoglobin A1C 4.9 % (<5.7)
== END 2024-09-20 08:02 | disposition home or self-care (01) ==
PROVIDERS: PCP Internal Medicine; Visit Provider Internal Medicine
DX: E78.5 Hyperlipidemia, unspecified (principal); R73.9 Hyperglycemia, unspecified; E03.9 Hypothyroidism, unspecified
CPT/HCPCS: 36415; 80061; 83036; 84443

== ENCOUNTER 2024-11-20 09:52 | Outpatient (CLI) | payer MEDICARE, MEDICAID, SELFPAY ==
[2024-11-20 10:54] LABS: Hematocrit 36.6 % (37.0-47.0); Hemoglobin 11.4 g/dL (12.0-15.0); Mean Corpuscular HGB Conc 31.1 g/dl (32-36); Mean Corpuscular Hemoglobin 29.1 pg (26-34); Mean Corpuscular Volume 93.4 fl (80-100); Platelet Count Result 236 k/mm3 (150-375); Red Blood Count 3.92 M/mm3 (4.2-5.4); White Blood Count 7.5 K/mm3 (4.5-10.0)
[2024-11-20 11:19] LABS: Albumin Level 4.1 g/dL (3.5-5.1); Anion Gap 10 mmol/L (4-12); Blood Urea Nitrogen 35 mg/dL (7-17); Calcium 8.9 mg/dL (8.4-10.2); Carbon Dioxide 25 mmol/L (22-30); Chloride 103 mmol/L (98-107); Estimated Glomerular Filt Rate 22; Glucose 88 mg/dL (65-110); Potassium 4.7 mmol/L (3.4-5.0); Sodium 138 mmol/L (137-145)
[2024-11-20 11:24] LABS: Total Protein Urine Random 15 mg/dL; Ur Ttl Prot Creatinine Ratio 0.52 mg/mg (0-0.20)
[2024-11-20 11:26] LABS: Parathyroid Intact 110.0 pg/mL (14.5-75.2)
== END 2024-11-20 09:53 | disposition home or self-care (01) ==
PROVIDERS: PCP Internal Medicine; Referring Provider Internal Medicine Cardiovascular Disease; Visit Provider Internal Medicine Nephrology
DX: N18.4 Chronic kidney disease, stage 4 (severe) (principal)
CPT/HCPCS: 36415; 80069; 82570; 83970; 84156; 85027